=== PATIENT | female | born 1990 | race Caucasian/White ===

== ENCOUNTER 2016-10-27 19:33 | Outpatient (CLI) | payer MEDICAID ==
[~2016-10-27] VITALS: Ht 157.5 cm; Wt 117.9 kg
[~2016-10-27 19:33] MED LIST: AUGMENTIN 875 M1 TAB PO; CEPHALEXIN500 MG PO; ETODOLAC400 MG PO; KEFLEX 500MG.500 MG PO; LEVOTHYROXIN0.025 M1 PO; LORTAB 5/500 501 TAB PO; LORTAB ELIXIR473 ML PO; MACROBID 100MG100 MG PO; NOMEDS; PHENERGAN 25MG.25 M1 PO; PIRMELLA 7/7/71 TAB PO; PREDNISONE 20MG20 MG PO; PRENATAL PLUS1 TA1 PO; SPRINTEC 35 MCG1 TAB PO; TORADOL10 M2 PO; TRIAMCINOL30 GM/TUBE TP; VICODIN 5/500 T1 TAB PO; [UNRECOGNIZED DRUG - OTHER] PO
[2016-10-27 19:40] VITALS: BP 114/66
[2016-10-27] MEDS ORDERED: PRENATAL PLUS1 TA1 PO (19:55)
[2016-10-27] MEDS ORDERED: DICYCLOMINE HYD20 MG PO (19:57)
[2016-10-27 20:47] LABS: URINE BLOOD NEGATIVE (NEG)
[2016-10-27 20:49] LABS: URINE BILIRUBIN - DIPSTICK 1+ (NEG)
[2016-10-27 20:56] LABS: AMPHETAMINES/METAMPHETAMINES NEGATIVE ng/mL (<1000)
== END 2016-10-27 21:12 | disposition home or self-care (01) ==
LOC: OB 19:33 → OBOUT 19:33
PROVIDERS: Nurse Practitioner Obstetrics & Gynecology
DX: O26.92 Pregnancy related conditions, unspecified, second trimester (principal); Z3A.26 26 weeks gestation of pregnancy; R10.9 Unspecified abdominal pain

== ENCOUNTER 2017-03-17 06:37 | Emergency (ER) | payer MEDICAID ==
[~2017-03-17] VITALS: Ht 157.5 cm; Wt 109.3 kg
[~2017-03-17 06:37] MED LIST changes: +DICYCLOMINE HYD20 MG PO; +OMEPRAZOLE20 MG PO
--- NOTE | 2017-03-17 07:00 | Emergency Room Report ---
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 N Clinical Suspician of Infection? N Mental Status: 1 - Regular (Normal Baseline) Sepsis Risk:Low Sepsis Risk Have you (or family members/close friends) recently traveled outside the [place]? N If Yes, where/when: Have you had exposure to infectious disease within the past month? N TB? Other? Specify: Source patient, RN notes reviewed, family, old records Exam Limitations no limitations Comment trip injury and lac at base of rt fifth toe this am Cardiac Chest Pain Chest pain indicative of cardiac No Timing/Duration this morning Severity moderate ALLERGIES Coded Allergies: No Known Allergies (11/10/16) Home Medications Reported Medications Levothyroxine Sodium (Levothyroxine 0.025MG) 0.025 MG PO #30 Omeprazole (Omeprazole 20MG) 20 MG PO DAILY MULTIVIT-MIN W/FE-FA ( Multivitamin Tablet) 1 TAB PO DAILY Dicyclomine Hcl (Bentyl 20mg Tab (Generic)) 20 MG PO DAILY History Medical History General CAD? No Angina: Yes PR: No Hypertension? No Hyperlipidemia? No CHF? No DVT? No PE? No COPD? No Asthma? No Anemia? No GERD? No Gastric ulcers? No GI Bleed? No Hernia? No Thyroid Problems? No Hypothyroidism? Yes CVA? No Seizures? No Diabetes? No Renal Insuffiency? No End Stage Renal Disease? No UTI? Yes Stones? No BPH? No GB Disease: Yes Nephritic Syndrome? No Asplenia? No Hepatitis? No Sickle Cell Disease? No Arthritis? No Migraines? No Cataracts? No Glaucoma? No MRSA? No TB? No Anxiety? No Depression? No Cancer? No More? 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 Respiratory denies cough, denies shortness of breath, denies wheezing Cardiovascular denies chest pain, denies palpitations, denies syncope Gastrointestinal denies abdominal pain, denies diarrhea, denies vomiting Genitourinary denies: dysuria, frequency, hesitancy, hematuria. Musculoskeletal denies back pain, denies joint pain, denies joint swelling, denies neck pain Skin see HPI, denies rash, other Psychiatric/Neurological denies headache, denies seizure Physical Exam Vital Signs Vital Signs Date Time Temp Pulse Resp B/P Pulse O2 O2 Flow FiO2 Ox Delivery Rate 03/17 646 97.9 87 20 140/85 95 - WBC >12,000 or <4,000 or 10% bands? 2 or more SIRS Criteria Met? B/P:140/85 MAP:103 Creatinine >2.0? UA output<0.5ml/kg/hr for 2 hrs? Platelet count >100,000? Lactate >2.0mmol/1? INR >1.2 or PTT > than 60 sec? Evidence of Organ Dysfunction? Provider documented clinical suspician of infection? N Sepsis Criteria Count: 1 Sepsis Risk: Low Sepsis Risk General Appearance no apparent distress Eye Exam - bilateral eye PERRL, bilateral eye EOMI Ear, Nose, Throat normal ENT inspection Neck supple Respiratory Status No: respiratory distress. 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 No Results/Orders Current Medication Orders Sig/Stephen Start time Last Medication Dose Route Stop Time Status Admin Diphtheria/Pertussis/ 0.5 ML ONCE ONE 03/17 715 DC Tetanus Vacc IM 03/17 716 Lidocaine HCl 0 .STK-MED ONE 03/17 702 DC .ROUTE Procedures Laceration/Wound Repair Laceration/Wound Repair Risks/benefits discussed with pt/guardian? Yes Tetanus status not up to date Wound Location toe(s) Wound Length (cm) 1 Wound's Depth, Shape sucutaneous tissue Wound Explored no FB identified Risk of retained FB explained to pt/guardian? Yes Irrigated w/ Saline (ccs) 20 Wound Prep Hibiclens, Saline Anesthesia 1% Lidocaine, Digital block Volume Anesthetic (ccs) 2 Wound Debrided none Wound Repaired With sutures, Dermabond Suture Size/Type 3:0, Ethilon Layer Closure No Total Number Sutures 3 Sterile Dressing Applied Yes Splint Applied No Sling Applied No Departure Departure Time of Disposition 701 Disposition DC Home or Self Care(routine) Clinical Impression Primary Impression: Laceration of toe Qualifiers: Encounter type: initial encounter Toe: lesser toe Damage to nail status: unspecified Foreign body presence: without foreign body Laterality: right Qualified Code: S91.114A - Laceration without foreign body of right lesser toe(s) without damage to nail, initial encounter Condition STABLE Patient Instructions DI for Laceration Repair Additional Instructions suture out 10 days and recheck if any problems Discharge Counseling Counseled pt/family regarding diagnosis, follow up needs ED Critical Care Critical Care No at 0719
[2017-03-17 07:31] VITALS: BP 125/78
--- OUTSIDE RECORDS SUMMARY | 2017-03-24 18:08 | External Medical Summary Rpt ---
Author Author MAIRA Saint Jason Simons Organization [facility] Saint Jason Simons Address Unknown Phone Unavailable Care Team Providers Care College Athletic Director Name Role Phone DR JOSR PCP [phone] Encounter [facility] EM[facility] [id number] Date(s): 11/27/16 - 11/27/16 [facility] Saint Jason Simons [address] [place] [address]- Discharge Diagnosis: Discharge Diagnosis: Upper respiratory infection Discharge Diagnosis: Left acute otitis media Discharge Disposition: OP Self Care or Home Attending Physician: NIDIA HUBBARD MD-EMR Admitting Physician: NIDIA HUBBARD MD-EMR Referring Physician: GENOVEVA OVALLES REFERRED Reason for Visit OTITIS MEDIA, UNSPECIFIED, LEFT EAR Vital Signs Most recent 1 to oldest [Reference Range]: Temperature Oral Source (11/27/16 1:57 PM) Temperature Fahrenheit Mode (11/27/16 1:57 PM) Temperature, 97.7 Deg F Fahrenheit (11/27/16 1:57 PM) [96.8-99.7 Deg F] Clinical 36.5 Deg C Temperature, (11/27/16 1:57 PM) C Peripheral 100 bpm Pulse Rate (11/27/16 1:57 PM) [60-100 bpm] Respiratory 16 Breaths/Min Rate [14-20 (11/27/16 1:57 PM) Breaths/Min] Blood 127/62 mmHg Pressure (11/27/16 1:57 PM) [90-140/60-9 0 mmHg] Oxygen 96 % Saturation (11/27/16 1:57 PM) [94-100 %] Oxygen Room air Therapy Mode (11/27/16 1:57 PM) Height Stated Source (11/27/16 1:57 PM) Height Entry [place] Format (11/27/16 1:57 PM) Height/Lengt 5 ft h, SAMMARINESE (11/27/16 1:57 PM) (ft) Height/Lengt 2 Inch h SAMMARINESE (11/27/16 1:57 PM) CLINICALHEIG 157.48 cm HT (11/27/16 1:57 PM) Weight Critical estimated dosing weight Source, ED (11/27/16 1:57 PM) Weight Entry [place] Format (11/27/16 1:57 PM) Weight 260 lb [place] lb (11/27/16 1:57 PM) CLINICALWEIG 118.18 kg HT (11/27/16 1:57 PM) Body Surface 2.14 m2 Area (BSA) (11/27/16 1:57 PM) Body Mass 47.7 kg/m2 Index (BMI) *>HHI* [19.0-24.0 (11/27/16 1:57 PM) kg/m2] [place] Body 50 kg Weight (11/27/16 1:57 PM) Problem List Condition Effective Status Health Informant Dates Status (Co Active nfirmed) Allergies, Adverse Reactions, Alerts No Known Allergies Medications amoxicillin (amoxicillin 875 mg oral tablet)1 Tab, Oral, Two Times A Day, 10 Day(s), Refills: 0Ordering provider: KATIE BARLOW PA Results Microbiology Reports TEST: Rapid Strep Test STATUS: Auth (Verified) BODY SITE: SOURCE: Throat COLLECTED DATE/TIME: 11/27/16 2:23 PMFINAL REPORTStrep Screen negative for Group A; Culture confirmation to followTEST: Strep A Screen STATUS: Order in Progress BODY SITE: SOURCE: Throat COLLECTED DATE/TIME: 11/27/16 2:23 PMPRELIMINARY REPORTNo Beta Strep isolated at 24 hours Immunizations No data available for this section Procedures No data available for this section Social History Social History Response Type Smoking Status Current every day smoker Assessment and Plan No data available for this section Hospital Discharge Instructions Patient EducationOtitis Media, Adult Pharyngitis Smoking Cessation, Tips For Success
--- OUTSIDE RECORDS SUMMARY | 2017-03-24 18:08 | External Medical Summary Rpt ---
Author Author MAIRA Saint Jason Simons Organization [facility] Saint Jason Simons Address Unknown Phone Unavailable Care Team Providers Care Senior Relationship Manager Name Role Phone DR JOSR PCP [phone] Encounter [facility] [place] [id number] Date(s): 11/27/16 - 11/27/16 [facility] Saint Jason Simons [address] [place] [address]- [phone] Discharge Diagnosis: Discharge Diagnosis: Upper respiratory infection [...] Stated Source (11/27/16 1:57 PM) Height Entry [place] Format (11/27/16 1:57 PM) Height/Lengt 5 ft h, BENINESE (11/27/16 1:57 PM) (ft) Height/Lengt 2 Inch h BENINESE (11/27/16 1:57 PM) CLINICALHEIG 157.48 cm HT (11/27/16 1:57 PM) Weight Critical estimated dosing weight Source, ED (11/27/16 1:57 PM) Weight Entry [place] Format (11/27/16 1:57 PM) Weight 260 lb Brazilian lb (11/27/16 1:57 PM) CLINICALWEIG 118.18 kg HT (11/27/16 1:57 PM) Body Surface 2.14 m2 Area (BSA) (11/27/16 1:57 PM) Body Mass 47.7 kg/m2 Index (BMI) *>HHI* [19.0-24.0 (11/27/16 1:57 PM) kg/m2] [place] Body 50 kg Weight (11/27/16 1:57 PM) [...]
--- OUTSIDE RECORDS SUMMARY | 2017-03-24 18:12 | External Medical Summary Rpt | CCD ---
Author Author , YASMEEN Organization YASMEEN Address Unknown Phone [email or web address] Care Team Providers Care Devulcanizer Operator Name Role Phone ALFARIS MOH, ALFARIS Unavailable Unavailable MOH ALLRAN JR PIETRO, ALLRAN Unavailable Unavailable JR PIETRO ARNOLD RAJIV, ARNOLD Unavailable Unavailable RAJIV ARNOLD RAJIV, ARNOLD Unavailable Unavailable RAJIV HAIR, HAIR Unavailable Unavailable HAIR, HAIR Unavailable Unavailable LUJAN DONELL, LUJAN Unavailable Unavailable DONELL LE MARLEY LUJAN Unavailable Unavailable DONELL BESSON TERE, BESSON Unavailable Unavailable TERE ADKINS ALL, ADKINS ALL Unavailable Unavailable CELLAROSI - YORBA Unavailable Unavailable PAT, CELLAROSI - YORBA PAT [facility] Unavailable Unavailable [facility], [facility] Unavailable Unavailable [facility], [facility] Unavailable Unavailable [facility], [facility] SAM ERNESTINE, Unavailable Unavailable SAM ERNESTINE MILY SARAH, MILY SARAH Unavailable Unavailable FINE BRA, FINE BRA Unavailable Unavailable JUDITH, JUDITH Unavailable Unavailable JUDITH VETO, JUDITH Unavailable Unavailable VETO JUDITH VETO, JUDITH Unavailable Unavailable VETO [facility] BURROUGHS FERMÍN, BURROUGHS Unavailable Unavailable FERMÍN [facility] Unavailable Unavailable INC, [facility] Unavailable [facility]available HOSPITAL P, [facility] P HIGUERA, HIGUERA Unavailable Unavailable HIGUERA SULY, HIGUERA Unavailable Unavailable SULY CARPENTER, CARPENTER Unavailable Unavailable CARPENTER, CARPENTER Unavailable Unavailable [facility], Unavailable Unavailable [facility] PIERCE CHAPIN Unavailable Unavailable [facility] Un[facility] Unavailable GROUP PS, [facility] Unavailable Unavailable [facility], [facility], Unavailable Unavailable [facility] Sarika Gallagher MD, Unavailable Unavailable Sarika Gallagher MD [facility] Un[facility], [facility] Unavailable Unavailable [facility] Unavailable Unavailable [facility] SCOTT HUSSEIN, SCOTT Unavailable Unavailable HUSSEIN SCOTT HUSSEIN, SCOTT Unavailable Unavailable HUSSEIN [facility] Un[facility] Unavailable [facility], [facility] KASEY ANT, KASEY ANT Unavailable Unavailable ESTER NOAH, Unavailable Unavailable ESTER NOAH [facility], Unavailable Unavailable [facility], Unavailable Unavailable [facility] Unavailable Unavailable SERVICES, [facility] O'GREGOR, O'GREGOR Unavailable Unavailable O'GREGOR DONELL, O'GREGOR Unavailable Unavailable DONELL [facility] Unavailable Un[facility], [facility] ZEENAT THERESA, ZEENAT THERESA Unavailable Unavailable PICKLESIMER JR GIDEON, Unavailable Unavailable PICKLESIMER JR GIDEON [facility], Unavailable Unavailable [facility], Unavailable Unavailable [facility] DAVIS, DAVIS Unavailable Unavailable SOTINGEANU SARAH, Unavailable Unavailable SOTINGEANU SARAH [facility], [facility] Unavailable Unavailable EMERGENCY SERVI, [facility] TALAMANTES RAY, TALAMANTES Unavailable Unavailable RAY CAIN, BARLOW Unavailable Unavailable HANNY [facility], HANNY Unavailable Unavailable [facility] Unavailable Unavailable HOSPITALS, [facility], Unavailable Unavailable [facility] Unavailable Unavailable DEPT [facility] DEPT [facility] Unavailable Unavailable DEPT [facility] DEPT [facility] ELLIOTT GOULD, ELLIOTT GOULD Unavailable Unavailable Purpose Continuity of Care Document - 12-15-2012 through 2016 Problems Code Diagnosis DOS Provider Status E039 HYPOTHYROID 01-26-2017 [facility]PEC[facility] E6601 MORBID 01-26-2017 [facility] OBESITY DUE HOSPITA TO EXCESS CALORIES O701 SECOND 01-26-2017 [facility]GREE [facility] PERINEAL HOSPITA LACERATION DUR DELIVERY O76 ABNORMALITY 01-26-2017 [facility] IN [facility] HRT RATE HOSPITA RHYTHM COMP L & D O80 ENCOUNTER 01-26-2017 [facility] FULL-TERM GROUP PS UNCOMPLICAT ED DELIVERY K41117 OBESITY 01-26-2017 [facility] CHILDBIRTH T40933 ENDOCRINE 01-26-2017 [facility] METAB DZ [facility] COMP CHILDBIRTH Z09228 SMOKING 01-26-2017 [facility] TOBACCO [facility] COMPLICATIN [facility] G CHILDBIRTH Z370 SINGLE LIVE 01-26-2017 [facility] Z382 SINGLE 01-26-2017 [facility] NERI STOUT UNS TO PLACE OF Z6841 BODY MASS 01-26-2017 [facility] INDEX BMI COMMUNTIY 40.0-44.9 HOSPITA ADULT E663 OVERWEIGHT 01-06-2017 [facility] M70850 OBESITY 01-06-2017 [facility] G [facility] THIRD TRIMESTER R95594 ENDOCRINE 01-06-2017 [facility] METAB DZ [facility] COMP PREG 3RD TRI [id number] OTH MENTAL 01-06-2017 [facility] DIS[facility] 3RD TRIMESTER Z23 ENCOUNTER 01-06-2017 [facility] IMMUNIZATIO [facility]OUND[facility] N Z3483 ENC 01-06-2017 [facility] OT NORMAL HOSPITALS 3 TRIMESTER Z36 ENCOUNTER 01-06-2017 [facility] HOSPITALS SCREENING OF MOTHER Z3A36 36 WEEKS 01-06-2017 [facility] Z6842 BODY MASS 01-06-2017 [facility] BMI SERV 45.0-49.9 FOUNDATION ADULT E669 OBESITY 12-01-2016 [facility] UNSPECIFIED SERV [facility] Z3A31 31 WEEKS 12-01-2016 [facility] OF [facility] H6692 OTITIS 11-27-2016 [facility] UNSPECIFIED SERVI LEFT EAR J069 ACUTE UPPER 11-27-2016 [facility] N [facility] RESPIRATORY SERVI INFECTION UNSPECIFIED E19255 DISEASES 11-27-2016 [facility] N EMERGENCY SYS COMP SERVI 3RD TRI Z3A30 30 WEEKS 11-27-2016 [facility] GESTATION N EMERGENCY OF SERVI K529 NONINFECTIV 11-10-2016 [facility], GASTROENTER PLLC ITIS & COLITIS UNS K9289 OTHER 11-10-2016 [facility] SPECIFIED [facility] DISEASES OF INC THE DIGESTIVE SYSTEM C12908 DISEASES 11-10-2016 [facility] DIGESTIVE [facility]IANS, SYSTEM COMP PLLC 2ND TRI K16879 DISEASES 11-10-2016 [facility] DIGESTIVE [facility] SYSTEM COMP INC 3RD TRI Z3A28 28 WEEKS 11-10-2016 [facility] GESTATION PHYSICIANS, OF PLLC K589 IRRITABLE 10-29-2016 [facility] WITHOUT DIARRHEA O2342 UNS INF 10-29-2016 [facility] SECOND TRIMESTER Q28257 ENDOCRINE 10-29-2016 [facility] METAB DZ HOSPITALS COMP PREG 2ND TRI Z3A26 26 WEEKS 10-29-2016 [facility] O2692 10-27-2016 [facility] RELATED [facility] CONDITIONS INC UNS 2ND TRIMESTER R109 UNSPECIFIED 10-27-2016 [facility] ABDOMINAL [facility] PAIN INC 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 H5213 MYOPIA 10-14-2016 HAIR BILATERAL Z39045 OBESITY 09-20-2016 [facility] G [facility] SECOND TRIMESTER Z3A20 20 WEEKS 09-20-2016 [place] [facility] OF [facility] Z3189 ENCOUNTER 06-10-2016 [facility] FOR OTHER DISTRICT PROCREATIVE [facility] DEPT MANAGEMENT RUTH Z3201 ENCOUNTER 06-10-2016 [facility] FOR DISTRICT HLTH DEPT TEST RESULT RUTH POSITIVE H538 OTHER 04-08-2016 [facility] VISUAL COMM[facility]TIY DISTURBANCE HOSPITA S H539 UNSPECIFIED 04-08-2016 [facility] VISUAL N EMERGENCY DISTURBANCE PHYS R110 NAUSEA 04-08-2016 [facility] R51 HEADACHE 04-08-2016 [facility] N EMERGENCY PHYS Z720 TOBACCO USE 04-08-2016 [facility] N921 EXCESS & 03-18-2016 [facility] MENSTRUATIO N W/IRREGULAR CYCLE A58591 OTHER LONG 03-18-2016 [facility] CURRENT DRUG THERAPY T17382 PAIN IN 03-05-2016 ARNALBERT VANCE UNSPECIFIED FOOT M722 PLANTAR 01-21-2016 [facility] FASCIAL PHYSICIANS, FIBROMATOSI [facility] S U89098 PAIN IN 01-21-2016 [place] LEFT [facility]OT [facility] ASS U02813 OTHER 01-16-2016 ARNALBERT RAJIV MIGRAINE INTRACT W/O STATUS MIGRAINOSUS D649 ANEMIA 12-19-2015 [facility] UNSPECIFIED PHYSICIANS LA E119 TYPE 2 12-19-2015 [facility] DIABETES PHYSICIANS MELLITUS LA WITHOUT COMPLICATIO NS E785 HYPERLIPIDE 12-19-2015 [facility] CONSTANTIN PHYSICIANS UNSPECIFIED LA I10 ESSENTIAL 12-19-2015 [facility] PRIMARY PHYSICIANS HYPERTENSIO LA N N63 UNSPECIFIED 11-25-2015 [place] [facility] BREAST N644 MASTODYNIA 11-25-2015 [facility] R590 LOCALIZED 11-25-2015 [facility] ENLARG[facility] LYMPH NODES B379 CANDIDIASIS 11-18-2015 [facility]PEC[facility]IED [facility] N6009 SOLITARY 11-18-2015 [facility] CYST OF SERV UNSPECIFIED FOUNDATION BREAST Z0100 ENCOUNTER 09-20-2015 [facility] EXAM EYES & GRE VISION W/O ABNORMAL FIND J0100 ACUTE 09-11-2015 [facility] MAXILLARY PHYSICIANS SINUSITIS GROUP UNSPECIFIED J320 CHRONIC 09-11-2015 [facility] MAXILLARY PHYSICIANS SINUSITIS GROUP M2662 ARTHRALGIA 09-01-2015 SHAYLA RAJIV OF TEMPOROMAND IBULAR JOINT R102 PELVIC AND 08-13-2015 [facility] PERINEAL [facility] PAIN [facility] O84927 PAIN IN 07-16-2015 [facility]ST [facility] ASS M6740 GANGLION 07-16-2015 [facility] UNSPECIFIED [facility] HOS[facility] SITE INC K219 GASTRO-ESOP 07-12-2015 LE MARLEY H REFLUX DISEASE WITHOUT ESOPHAGITIS 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 R0789 OTHER CHEST 07-12-2015 LE [facility] PAIN R079 CHEST PAIN 07-09-2015 ARNOLD RAJIV UNSPECIFIED S33003 ENCOUNTER 05-22-2015 [facility] SECOND BALLER EXAM LLC GENERAL RTN W/O ABNORMAL FIND 1121 CANDIDIASIS 01-28-2015 [facility] OF [place] [facility] AND [place] [facility] DEPT RUTH 6101 DIFFUSE 01-28-2015 [facility] CYSTIC DISTRICT MASTOPATHY TH DEPT RUTH 47663 SPASM OF 12-13-2014 RICHARDS RAJIV MUSCLE 2724 OTHER AND 08-21-2014 [facility] UNSPECIFIED PHYSICIANS LA HYPERLIPIDE CONSTANTIN 4659 ACUTE URIS 08-21-2014 ARNOLD RAJIV OF UNSPECIFIED SITE 30833 FEVER 08-21-2014 [place] [address] OTHER 08-21-2014 [facility] MALAISE AND PHYSICIANS FATIGUE [place] 7295 PAIN IN 06-19-2014 [facility] SOFT MEDICAL TISSUES OF IMAGING ASS LIMB 34968 CALCANEAL 05-13-2014 [place] [address] OTHER 05-13-2014 [facility] ENTHESOPATH FOOT & Y OF ANKLE ANKLE CE AND TARSUS 87000 PAIN IN 05-06-2014 [facility] JOINT, MEM HOS[facility] ANKLE AND INC FOOT V2501 GENERAL 04-23-2014 [facility] PRESCRIPTIO [facility]ATION N ORAL CONTRACEPTS V7241 04-23-2014 [place] [facility] EX[facility] OR TEST [place] [facility] NEGATIVE RESULT 55620 UNSPECIFIED 03-28-2014 SCOTT HUSSEIN ACUTE NONSUPPURAT SOPHIA OTITIS MEDIA 55473 OTHER ACUTE 03-27-2014 JUDITH VETO POSTOPERATI VE PAIN 7841 THROAT PAIN 03-27-2014 JUDITH VETO 38507 OBSTRUCTIVE 03-21-2014 [facility] P 463 ACUTE 03-21-2014 [facility] TONSILLITIS LLC 53483 CHRONIC 03-21-2014 SCOTT HUSSEIN TONSILLITIS 83272 HYPERTROPHY 03-21-2014 [facility], OF TONSILS LLC ALONE V2541 SURVEILLANC 03-19-2014 [facility] E PREV DISTRICT PRESCRIBED [facility] DEPT CONTRACEPT RUTH PILL V2689 OTHER 03-19-2014 [facility] SPECIFIED DISTRICT PROCREATIVE [facility] DEPT MANAGEMENT RUTH 462 ACUTE 03-05-2014 SHAYLA VANCE PHARYNGITIS 6929 CONTACT 03-05-2014 SHAYLA RAJIV DERMATITIS& OTHER EC[facility] DUE UNSPEC CAUSE V2503 ENCOUNTER 03-05-2014 [facility] EMERGENCY DISTRICT CONTRACEPT [facility] DEPT CNSL&PRESCR RUTH IPTION 2893 LYMPHADENIT 02-28-2014 SONIA HUSSEIN IS UNSPECIFIED EXCEPT MESENTERIC 5282 ORAL 02-16-2014 [facility] APHTHAE [facility] INC V2549 SURVEILLANC 12-25-2013 [facility] OTH PREV DISTRICT PRSC [facility] DEPT CONTRACEPT RUTH METHOD V7231 ROUTINE 12-25-2013 [facility] GYNECOLOGIC LLC AL EXAMINATION 59017 CALCU 09-17-2013 [facility] GALLBLADD LLC W/OTH CHOLECYST W/O MENTION OBST 54092 CALCU 09-17-2013 [facility] GALLBLADD PHYSICIANS W/O MENTION GROUP CHOLECYST/O BST 13588 CHOLECYSTIT 09-17-2013 COMMUNITY IS, ANESTH OF UNSPECIFIED THE BLUE 5770 ACUTE 09-17-2013 [facility] PANCREATITI PHYSICIANS S GROUP V4579 OTHER 09-17-2013 [facility] ACQUIRED MEDICAL ABSENCE OF IMAGING ASS ORGAN 5758 OTHER 09-12-2013 [facility] SPECIFIED [facility] DISORDER OF INC GALLBLADDER 61003 MORBID 09-06-2013 [facility] OBESITY [facility] INC 76773 CALCU BD 09-06-2013 [facility] W/ACUT [facility] H[facility] CHOLECYST INC W/O MENTION OBST V8541 BODY MASS 09-06-2013 [facility] INDEX [facility]P 40.0-44.9 INC ADULT 77104 ABDOMINAL 09-01-2013 [facility] PAIN RIGHT PHYSICIANS UPPER GROUP QUADRANT 99307 BENIGN 07-09-2013 [facility] ESSENTIAL COMM[facility]TIY HYPERTENSIO HOSPITA N WITH DELIVERY 04104 IVETTE 07-09-2013 [facility] HYPERTENSIO FOUNDATIO N W/DELIV W/CURRENT PPC 04762 OBESITY 07-09-2013 [place] [facility] COMP PG SERV CHILDBIRTH/ FOUNDATIO THE PP DEL W/PP COMP 650 NORMAL 07-09-2013 [place] [address] SECOND-DEGR 07-09-2013 [facility] PERINEAL COMMUNTIY LACERATION HOSPITA WITH DELIVERY V270 OUTCOME OF 07-09-2013 [place] [facility] SINGLE FOUNDATIO LIVEBORN 66062 OBESITY, 07-06-2013 [place] [facility] UNSPECIFIED SERV FOUNDATIO 4019 UNSPECIFIED 07-06-2013 [place] [facility] E[facility]ENTIAL [facility] HYPERTENSIO FOUNDATIO N 60694 UNSPECIFIED 07-06-2013 [facility] HYPERTENSIO FOUNDATIO N ANTEPARTUM V239 UNSPECIFIED 07-06-2013 [place] [facility] HIGH-RISK SERV FOUNDATIO V2389 SUPERVISION 06-29-2013 [facility] OF [facility] HIGH-RISK 55062 UTERINE 05-23-2013 [place] [facility] [place] DATE SERV DISCREPANCY FOUNDATIO ANTPRTM COND/COMPL V720 EXAMINATION 05-17-2013 [facility] OF EYES GRE AND VISION V221 SUPERVISION 03-30-2013 [facility] OTHER DIAGNOSTICS NORMAL 30895 UNS 02-28-2013 [place] [facility] &PLACN SERV TL PROB FOUNDATIO AFFCT MGMT MOTH ANTPRTM V2881 ENCOUNTER 02-28-2013 [place] [facility] FOR [facility] ANATOMIC F[facility]ATIO SURVEY 599.0 599.0 URIN 12-15-2012 [facility] INFECTION Hospital NOS 5990 URINARY 12-15-2012 [facility] INFECTION INC SITE NOT SPECIFIED 646.83 646.83 PREG 12-15-2012 [facility] [place] [address] INFECTIONS 12-15-2012 [facility] OF EMERGENCY GENITOURINA SERVICES RY TRACT ANTEPARTUM 82514 OTHER 12-15-2012 [facility] N ANTEPARTUM Allergies, Adverse Reactions, Alerts Type Drug Allergy Adverse Reaction to Substance Substance Reaction Severity No Known Allergies - Unknown Mild Nka Clinical Alert Notifications Alert Diabetes: no A1C in the last 6 months Diabetes: no eye exam in the last 365 days Diabetes: no lipid panel in the last 365 days Medications Na ND Rx Da Fi Fi Am Da Di Ph RX Ph St me C No te ll ll ou ys ag ar # ys at rm s nt no ma ic us Or Da si cy ia de te s n re d LE 00 08 09 30 30 00 EA Ac VO 37 -3 -[address] ti TH 81 1- 9- 00 00 SI ve YR 80 20 20 48 DE OX 01 17 17 81 IN 0 38 PH E AR 25 MA CY MC G OF TA CY BL NT ET HI AN A IN C MS 39 09 09 30 30 00 EA Ac EN 32 -0 -[address] ti AT 80 5- 9- 00 00 SI ve AL 10 20 20 49 DE 61 17 17 33 0 11 PH TA AR WY MA N CY PL US OF CY LO NT W HI IR AN ON A IN C OM 62 08 09 30 30 00 EA Ac EP 17 -1 -[address] ti RA 50 5- 8- 00 00 SI ve ZO 13 20 20 48 DE LE 64 17 [address] AR MA 40 CY MG OF CY CA NT PS HI UL AN E A IN C MS 39 08 08 30 30 00 EA Ac EN 32 -0 -[address] ti AT 80 1- 5- 00 00 SI ve AL 10 20 20 49 DE 61 17 17 33 0 11 PH TA AR WY MA N CY PL US OF CY LO NT W HI IR AN ON A IN C OM 62 07 08 30 30 00 EA Ac EP 17 -2 -[address] ti RA 50 3- 8- 00 00 SI ve ZO 13 20 20 48 DE LE 64 17 [address] AR MA 40 CY MG OF CY CA NT PS HI UL AN E A IN C LE 00 07 08 30 30 00 EA Ac VO 37 -2 -[address] ti TH 81 4- 8- 00 00 SI ve YR 80 20 20 48 DE OX 01 17 17 81 IN 0 38 PH E AR 25 MA CY MC G OF TA CY BL NT ET HI AN A IN C MS 39 07 07 30 30 00 EA Ac EN 32 -0 -[address] ti AT 80 3- 8- 00 00 SI ve AL 10 20 20 49 DE 61 17 17 33 0 11 PH TA AR WY MA N CY PL US OF CY LO NT W HI IR AN ON A IN C LE 00 07 07 30 30 00 EA Ac VO 37 -0 -[address] ti TH 81 1- 8- 00 00 SI ve YR 80 20 20 48 DE OX 01 17 17 81 IN 0 38 PH E AR 25 MA CY MC G OF TA CY BL NT ET HI AN A IN C AM 65 06 07 20 10 00 KE Ac OX 86 -1 -1 .0 00 NT ti IC 20 7- 4- 00 00 UC ve IL 01 20 20 99 [place] LI 50 17 17 80 N 1 99 CV 87 S 5 PH MG AR MA TA CY BL ET LL C, DB A CV S PH AR MA CY #3 99 5 OM 62 06 07 30 30 00 EA Ac EP 17 -2 -[address] ti RA 50 0- 4- 00 00 SI ve ZO 13 20 20 48 DE LE 64 17 [address] AR MA 40 CY MG OF CY CA NT PS HI UL AN E A IN C LE 00 06 06 30 30 00 EA Ac VO 37 -0 -[address] ti TH 81 1- 0- 00 00 SI ve YR 80 20 20 48 DE OX 01 17 17 81 IN 0 38 PH E AR 25 MA CY MC G OF TA CY BL NT ET HI AN A IN C NI 16 05 06 14 7 00 EA Ac TR 71 -1 -[address] ti OF 40 8- 6- 00 00 SI ve UR 43 20 20 48 DE AN 90 17 17 80 TO 1 78 PH IN AR MA MO CY NO -M OF CR CY NT 10 HI 0 AN MG A IN C OM 62 05 06 30 30 00 EA Ac EP 17 -1 -[address] ti RA 50 9- 6- 00 00 SI ve ZO 13 20 20 48 DE LE 64 17 [address] AR MA 40 CY MG OF CY CA NT PS HI UL AN E A IN C SE 16 05 05 30 30 00 EA Ac RT 71 -0 -[address] ti RA 40 3- 6- 00 00 SI ve LI 61 20 20 47 DE NE 20 17 17 91 6 09 PH HC AR L MA 50 CY MG OF CY TA NT BL HI ET AN A IN C LE 00 05 05 30 30 00 EA Ac VO 37 -0 -[address] ti TH 81 3- 6- 00 00 SI ve YR 80 20 20 48 DE OX 01 17 17 60 IN 0 34 PH E AR 25 MA CY MC G OF TA CY BL NT ET HI AN A IN C CH 00 04 04 47 15 00 EA Ac LO 11 -0 -[address] ti RH 62 3- 8- 00 00 SI ve EX 00 20 20 0 48 DE ID 11 17 17 22 IN 6 78 PH E AR 0. MA 12 CY % RI OF NS CY E NT HI AN A IN C HY 00 04 04 [address] 40 -0 -[address] ti OC 60 3- 8- 00 00 SI ve OD 12 20 20 48 DE ON 30 17 17 22 -A 5 79 PH CE AR TA MA WY CY NO PH OF EN CY NT 5- HI 32 AN 5 A IN C LE 00 03 04 30 30 00 EA Ac VO 37 -3 -[address] ti TH 81 1- 8- 00 00 SI ve YR 80 20 20 45 DE OX 01 17 17 05 IN 0 30 PH E AR 25 MA CY MC G OF TA CY BL NT ET HI AN A IN C OM 60 04 04 30 30 00 WA Ac EP 50 -0 -2 .0 00 L- ti RA 50 1- 8- 00 07 MA ve ZO 14 20 20 47 RT LE 60 17 [address] AR MA 40 CY MG #5 91 CA PS UL E SE 16 03 04 30 30 00 EA Ac RT 71 -0 -[address] ti RA 40 9- 7- 00 00 SI ve LI 61 20 20 47 DE NE 20 17 17 91 6 09 PH HC AR L MA 50 CY MG OF CY TA NT BL HI ET AN A IN LE 00 03 03 30 30 00 EA Ac VO 37 -0 -[address] ti TH 81 2- 1- 00 00 SI ve YR 80 20 20 45 DE OX 01 17 17 05 IN 0 30 PH E AR 25 MA CY MC G OF TA CY BL NT ET HI AN A IN C LE 00 02 03 30 30 00 EA Ac VO 37 -0 -[address] ti TH 81 3- 3- 00 00 SI ve YR 80 20 20 45 DE OX 01 17 17 05 IN 0 30 PH E AR 25 MA CY MC G OF TA CY BL NT ET HI AN A IN C AM 16 01 02 30 10 00 EA Ac OX 71 -1 -[address] ti IC 40 2- 0- 00 00 SI ve IL 29 20 20 45 DE LI 90 17 17 93 N 4 62 PH 50 AR 0 MA MG CY CA OF PS CY UL NT E HI AN A IN C HM 62 01 02 20 10 00 EA Ac 01 -0 -[address] ti NA 10 6- 3- 00 00 SI ve SA 08 20 20 47 DE L 70 17 17 15 DE 1 45 PH CO AR NG MA ES CY T ER OF CY 12 NT 0 HI MG AN A IN C LE 00 01 01 30 30 00 EA Ac VO 37 -0 -[address] ti TH 81 2- 7- 00 00 SI ve YR 80 20 20 45 DE OX 01 17 17 05 IN 0 30 PH E AR 25 MA CY MC G OF TA CY BL NT ET HI AN A IN C ON 68 12 01 10 3 00 EA Ac DA 46 -2 -[address] ti NS 20 1- 3- 00 00 SI ve ET 15 20 20 46 DE RO 81 16 17 96 N 3 89 PH OD AR T MA 8 CY MG OF TA CY BL NT ET HI AN A IN C OM 57 12 01 30 30 00 WA Ac EP 23 -1 -1 .0 00 L- ti RA 70 9- 3- 00 07 MA ve ZO 16 20 20 39 RT LE 23 16 [address] AR MA 40 CY MG #5 91 CA PS UL E Immunization Name Date Rout CVX Reac Dose Comm Prov Is Faci e tion ent ider Refu lity Give sed n TDAP - 115 HAYN No [place] 7-20 ES MEDI VACC 17 KAROLYN INE SERV 7 YRS/ FOUN > IM DATI ON Vital Signs 12-15-2012 16:31 Name Value Interpretat Reference Comment ion Range Body 98.4 [degF] Temperature BP 62 mm[Hg] Diastolic BP Systolic 133 mm[Hg] Heart 98 /min Rate/Pulse O2% 97 % Respiratory 18 /min Rate 12-15-2012 16:30 Name Value Interpretat Reference Comment ion Range Body 98.4 [degF] Temperature BP 62 mm[Hg] Diastolic BP Systolic 133 mm[Hg] Heart 98 /min Rate/Pulse O2% 97 % Respiratory 18 /min Rate Results Labs Lab Lab Date Result Refere Interp Status Commen Order Detail nces retati t Range on TSH SerPl DL<=0.005 mIU/L-aCnc (12-01-2016 15:15) TSH 2.09 0.4-4.2 complet SerPl 017 uIU/mL ed DL<=0.0 15:15 05 mIU/L-a Cnc CHLAMYDIA AND GONORRHEA TESTING (12-26-2013 09:10) Cutting Machine Fixer: Abigail Goyal MD FCAP Lab: [facility] Division of Laboratory Services Lab Address: [address] [place] [address], [address] [place] [address] 12-26-2013 9:10 am Specimen Collection Start Date/Time: Library Clerk: Specimen Fer'vinicius 12-31-2013 10:00 am Date/Time: Ordering Physician: [facility] 01-03-2014 8:32 am Results Rpt/Status Change Date/Time: This report contains patient information that must be protected in accordance with the Health Insurance Portability and Accountability Act. AMPLIFI NEGATIV complet ED N 014 E ed GONORRH 09:10 OEAE TEST Comment: NEGATIVE RESULT= WITHIN NORMAL LIMITS Comment: POSITIVE RESULT= ABNORMAL Comment: EQUIVOCAL RESULT= INDETERMINATE Comment: UNSATISFACTORY RESULT= INVALID Comment: THE APTIMA COMBO 2 ASSAY IS NOT INTENDED FOR THE EVALUATION OF SUSPECTED Comment: SEXUAL ABUSE OR FOR OTHER MEDICO-LEGAL INDICATIONS. FOR THOSE PATIENTS FOR Comment: WHOM A FALSE POSITIVE RESULT MAY HAVE ADVERSE PSYCHO-SOCIAL IMPACT, THE CDC Comment: RECOMMENDS RETESTING. Comment: \E\.br\E\This report contains patient information that must be protected in accordance with the Health Insurance Portability and Accountability Act. AMPLIFI NEGATIV complet ED 014 E ed CHLAMYD 09:10 IA TEST Comment: NEGATIVE RESULT= WITHIN NORMAL LIMITS Comment: POSITIVE RESULT= ABNORMAL Comment: EQUIVOCAL RESULT= INDETERMINATE Comment: UNSATISFACTORY RESULT= INVALID CHART NA complet NUMBER 014 ed 09:10 PREGNAN NO complet T 014 ed 09:10 SPECIME URINE complet N 014 ed SOURCE 09:10 REASON REVISIT complet FOR 014 /ANNUAL ed REQUEST 09:10 FAMILY PLANNIN G VISIT SYMPTOM NO complet S 014 ed 09:10 KIT 30-2 complet EXPIRAT 014 014 ed ION 09:10 DATE ETHNICI 07-16-2 WHITE, complet TY 014 NON-HIS ed 09:10 PANIC COLLECT 16-2 PT/D.BR complet OR 014 ADFORD ed 09:10 RN URINALYSIS/COMPLETE (12-15-2012 15:58) URINE 07-05-2 YELLOW YELLOW complet COLOR 013 ed 15:58 URINE 07-05-2 CLEAR CLEAR complet APPEARA 013 ed NCE 15:58 URINE 07-05-2 NEGATIV NEG complet GLUCOSE 013 E ed - 15:58 DIPSTIC K URINE 07-05-2 NEGATIV NEG complet BILIRUB 013 E ed IN - 15:58 DIPSTIC K URINE 07-05-2 NEGATIV NEG complet KETONE 013 E mg/dL ed 15:58 URINE 07-05-2 1.015 1.005-1 complet SPECIFI 013 UNK .030 ed C 15:58 GRAVITY URINE 07-05-2 NEGATIV NEG complet BLOOD 013 E ed 15:58 URINE 07-05-2 8.5 UNK 5.0-8.5 complet PH 013 ed 15:58 URINE 07-05-2 TRACE NEG complet PROTEIN 013 mg/dL ed - 15:58 DIPSTIC K URINE 07-05-2 1.0 NEG complet UROBILI 013 E.U./dL ed NOGEN - 15:58 DIPSTIC K URINE 07-05-2 NEGATIV NEG complet NITRATE 013 E ed - 15:58 DIPSTIC K URINE 07-05-2 1+ NEG complet LEUK 013 ed ESTERAS 15:58 E URINE 07-05-2 OCC 0 complet RBC 013 rbc/hpf ed 15:58 URINE 07-05-2 3-5 O complet WBC 013 wbc/hpf ed 15:58 URINE 07-05-2 5-10 0-5 complet SQUAMOU 013 #/hpf ed S CELLS 15:58 URINE 07-05-2 3+ O complet BACTERI 013 ed A 15:58 URINE 07-05-2 1+ OCC complet MUCUS 013 ed 15:58 Procedures Procedure DOS Code Location Performer Comment [facility] [id number] [place] DISCHARGE 7 [employer] DAY MANAGEMEN T 30 MIN/< VAGINAL [id number] [place] DELIVERY 7 MEDICAL ONLY SERV FOUNDATIO N 1ST [address] [facility]NIMO 7 MSO, [facility] CARE PER DAY NML NB NEURAXIAL 93024 [facility] DAVIS LABOR 7 ANESTHESI ANALG/ANE A GROUP S PLND PS VAGINAL DELIVERY DRAINAGE [id number] [facility] AMNIOTIC 7 N N FLUID COMMUNTIY COMMUNTIY THERAPEUT HOSPITA HOSPITA POC SAI/ART OP DELIVERY [id number] [facility] PRODUCTS 7 N N OF COMMUNTIY COMMUNTIY CONCEPTIO HOSPITA HOSPITA N EXTERNAL REPAIR [id number] [facility] PERINEUM 7 N N MUSCLE COMMUNTIY COMMUNTIY OPEN HOSPITA HOSPITA APPROACH IADNA 29118 [facility] STREPTOCO 7 HEALTHCAR HEALTHCAR CCUS E E GROUP B [facility] AMPLIFIED PROBE TQ IM ADM 50868 BAILEY DAVIDA PRQ ID 7 MEDICAL SUBQ/IM SERV NJXS 1 FOUNDATIO VACCINE N TDAP 39177 BAILEY DAVIDA VACCINE 7 7 MEDICAL YRS/> IM SERV FOUNDATIO N BLOOD 77776 [place] COUNT 7 HEALTHCAR HEALTHCAR COMPLETE E E AUTOMATED [facility] US PREG 66216 BAI[facility] O'[facility]REGOR UTERUS 7 MEDICAL REAL TIME SERV F/U FOUNDATIO [place] [address] [facility] THYROID 7 HEALTHCAR HEALTHCAR STIMULATI E E NG [facility] HORMONE TSH THERAPEUT 34849 ABDIFATAH GARDINER IC 7 [facility] INJECTION INC INC IV PUSH EACH NEW DRUG CULTURE 58668 ABDIFATAH GARDINER BACTERIAL 7 [facility] INC [place] [address] ABDIFATAH GARDINER INFUSION 7 [facility] THERAPY/P INC INC ROPHYLAXI S /DX 1ST TO 1 HR BLOOD 28508 ABDIFATAH GARDINER COUNT 7 [facility] COMPLETE INC INC AUTO&AUTO DIFRNTL WBC COMPREHEN 62355 ABDIFATAH GARDINER SIVE 7 [facility] METABOLIC INC INC PANEL URNLS DIP 95865 ABDIFATAH GARDINER 7 [facility] STICK/TAB INC INC LET REAGENT AUTO MICROSCOP Y GLUCOSE 13353 [place] [facility] POST 7 HEALTHCAR HEALTHCAR GLUCOSE E E DOSE [facility] DRUG TEST 99730 ABDIFATAH GARDINER PRSMV 7 [facility] QUAL DIR INC INC OPTICAL OBS PER DAY CULTURE 39940 ABDIFATAH GARDINER BACTERIAL 7 [facility] INC INC QUANTTATI VE COLONY COUNT URINE 92643 ABDIFATAH GARDINER NONSTRESS 7 [facility] TEST INC INC FITTING 89860 [facility] SPECTACLE 7 S XCPT APHAKIA MONOFOCAL FRAMES V2020 [facility] HAIR PURCHASES 7 1 VISN V2103 [facility] HAIR PLANO 7 TO+/-4.00 D SPHER 0.12-2.00 [place] 25684 [place] O[facility] UTERUS 7 MEDICAL AFTER 1ST SERV TRIMEST FOUNDATIO N GESTATION URINE 53330 [facility] 6 DISTRICT DISTRICT TEST HLTH DEPT HLTH DEPT VISUAL [place] [address] [facility] [place] TALAM[facility]ES HEAD/BRAI 6 RADIOLOGY RAY N W/[place] [address] [facility] THYROID 6 Y Y STIMULATI [facility] NG HORMONE TSH URINE 45948 BAILEY HIGUERA 6 MEDICAL SULY TEST SERV VISUAL FOUNDATIO COLOR N CMPRSN METHS BLOOD 28081 [facility] COUNT 6 Y Y COMPLETE [facility] AUTOMATED RADEX 44688 [place] [facility] ALL FOOT 6 MEDICAL COMPLETE IMAGING MINIMUM 3 [place] [address] COMBINED COMBINED FREE 6 PHYSICIAN [place]YS[place] [address] COMBINED COMBINED THYROID 6 PHYSICIAN PHYSICIAN STIMULATI S LA S LA NG HORMONE TSH SEDIMENTA 78716 COMBINED COMBINED TION RATE 6 PHYSICIAN PHYSICIAN RBC S LA S LA NON-AUTOM ATED 25 71330 COMBINED COMBINED HYDROXY 6 PHYSICIAN PHYSICIAN INCLUDES S [place] [address] COMBINED COMBINED TRIIODOTH 6 PHYSICIAN PHYSICIAN YRONINE S LA S LA T3 TOTAL TT3 BLOOD 95668 COMBINED COMBINED COUNT 6 PHYSICIAN PHYSICIAN COMPLETE S LA S LA AUTO&AUTO DIFRNTL WBC HEMOGLOBI 69754 COMBINED COMBINED N 6 PHYSICIAN PHYSICIAN GLYCOSYLA S LA S LA MARVA A1C COMPREHEN 51016 COMBINED COMBINED SIVE 6 PHYSICIAN PHYSICIAN METABOLIC S LA S LA PANEL LIPID 01068 COMBINED COMBINED PANEL 6 PHYSICIAN PHYSICIAN S LA S LA OPHTH 38598 [facility] 6 GRE GRE XM&EVAL COMPRHNSV ESTAB PT 1/> URINE 59248 [place] 6 MEDICAL MEDICAL TEST SERV SERV VISUAL FOUNDATIO FOUNDATIO COLOR N N CMPRSN METHS RADEX 61835 ABDIFATAH GARDINER WRIST 6 [facility] H[facility] COMPLETE INC INC MINIMUM 3 VIEWS ECG 95429 LE LUJAN ROUTINE 6 [facility] ECG W/LEAST 12 LDS I&R ONLY US BREAST 62288 [facility] UNI REAL 5 N N TIME COMMUNTIY COMMUNTIY WITH HOSPITA HOSPITA IMAGE LIMITED CYTP C/V 94216 [facility] [employer] LYR PREPJ SCR MNL RESCR PHYS GENERAL 22972 COMBINED COMBINED HEALTH 5 PHYSICIAN PHYSICIAN PANEL S LA S LA LIPID 61662 COMBINED COMBINED PANEL 5 PHYSICIAN PHYSICIAN S LA S LA CUL BACT 52372 COMBINED COMBINED XCPT 5 PHYSICIAN PHYSICIAN URINE S LA S LA BLOOD/STO OL AEROBIC ISOL SEDIMENTA 88005 COMBINED COMBINED TION RATE 5 PHYSICIAN PHYSICIAN [place] [address] COMBINED COMBINED FREE 5 PHYSICIAN PHYSIC[place] [address] COMBINED COMBINED TRIIODOTH 5 PHYSICIAN PHYSICIAN YRONINE S LA S LA T3 TOTAL TT3 DUP-SCAN 12463 [place] SAM XTR VEINS 5 MEDICAL ERNESTINE IMAGING UNILATERA ASS L/LIMITED STUDY RADEX 23137 [place] SAM FOOT 4 MEDICAL ERNESTINE COMPLETE IMAGING MINIMUM 3 ASS VIEWS URINE 06676 [place] HIGUERA 4 MEDICAL SULY TEST SERV VISUAL FOUNDATIO COLOR N CMPRSN METHS TONSILLEC 00895 ABDIFATAH GARDINER SYED 4 [facility] PRIMARY/S INC INC ECONDARY AGE 12/> URINE 68727 ABDIFATAH GARDINER 4 [facility] TEST INC INC VISUAL COLOR CMPRSN METHS BLOOD 02594 ABDIFATAH GARDINER COUNT 4 [facility] COMPLETE INC INC AUTO&AUTO DIFRNTL WBC LEVEL III 21193 [facility], SURG 4 [facility] PATHOLOGY GROSS&VETO ROSCOPIC EXAM ECG 32275 ABDIFATAH CROCKETT ROUTINE 4 [facility] W/LEAST P 12 LDS I&R ONLY ANESTHESI 53750 COMMUNITY HANNY A 4 ANESTH CHARITY INTRAORAL OF THE WITH BLUE BIOPSY NOS CONTRACEP S4993 [facility] TIVE 4 DISTRICT DISTRICT PILLS FOR HLTH DEPT HLTH DEPT [facility] CONTROL URINE 44671 [facility] 4 DISTRICT DISTRICT TEST HLTH DEPT HLTH DEPT VISUAL [facility] COLOR CMPRSN METHS THERAPEUT 36065 ABDIFATAH GARDINER IC 4 [facility] PROPHYLAC INC INC TIC/DX INJECTION SUBQ/IM CONTRACEP J7304 [facility] 4 [facility] DISTRICT SUPPLY TH DEPT TH DEPT HORMONE [facility] CONTAININ G PATCH EA IADNA 71713 [facility] CHLAMYDIA 4 DISTRICT DISTRICT HLTH DEPT TH DEPT TRACHOMAT [facility] IS AMPLIFIED PROBE TQ CYTP 12134 [facility], PICKLESIM CERV/VAG 4 [facility] ER JR GIDEON AUTO THIN LAYER PREP MNL SCREEN IADNA 32560 [facility] NEISSERIA 4 DISTRICT DISTRICT TH DEPT [facility] DEPT GONORRHOE [facility] AE AMPLIFIED PROBE TQ LEVEL III 24624 [facility], ESTER SURG [address] [facility] NOAH PATHOLOGY GROSS&VETO ROSCOPIC EXAM LAPS SURG 75048 [facility] TOR ZHOU 4 PHYSICIAN PIETRO CHOLECYST S GROUP ECTOMY W/CHOLANG IOGRAPHY ANES 20358 COMMUNITY ZEENAT THERESA INTRAPERI 4 ANESTH TONEAL OF THE UPPER BLUE ABDOMEN W/LAPS NOS CHOLANGIO 85010 OC VARGAS GRAPHY&/P 4 MEDICAL ERNESTINE ANCREATOG IMAGING MARIA[place] ASS NTRAOP RS&[place] [address] ABDIFATAH GARDINER INFUSION 4 [facility] THERAPY INC INC PROPHYLAX IS/DX EA HOUR CHOLANGIO 03306 ABDIFATAH GARDINER GRAPHY&/P 4 [facility] ANCREATOG INC INC MARIAH NTRAOP RS&[place] [address] ABDIFATAH GARDINER LIPASE 4 [facility] INC INC LOCM Q9967 ABDIFATAH GARDINER 300-399 4 [facility] MG/ML INC INC IODINE CONCENTRA TION PER ML BLOOD 51719 ABDIFATAH GARDINER COUNT 4 [facility] COMPLETE INC INC AUTO&AUTO DIFRNTL WBC COMPREHEN 63256 ABDIFATAH GARDINER SIVE 4 [facility] METABOLIC INC INC PANEL COMPREHEN 25333 ABDIFATAH GARDINER SIVE 4 [facility] METABOLIC INC INC PANEL BLOOD 03497 ABDIFATAH GARDINER COUNT 4 [facility] COMPLETE INC INC AUTO&[place] [address] ABDIFATAH GARDINER AMYLASE 4 [place] [address] ABDIFATAH GARDINER LIPASE 4 [facility] INC INC HOSPITAL G0378 ABDIFATAH GARDINER OBSERVATI 4 [facility] ON INC INC SERVICE PER HOUR HOSPITAL G0378 ABDIFATAH GARDINER OBSERVATI 4 [facility] ON INC INC SERVICE PER HOUR INJECTION J1335 ABDIFATAH GARDINER 4 [facility] ERTAPENEM INC INC SODIUM [address] [place] [address] ABDIFATAH GARDINER LIPASE 4 [facility] INC INC INJECTION J2405 ABDIFATAH GARDINER 4 [facility] ONDANSETR INC INC ON HCL [place] 1 [place] [address] ABDIFATAH GARDINER AMYLASE 4 [place] [address] ABDIFATAH GARDINER INFUSION 4 [facility] THER INC INC PROPH ADDL SEQUENTIA L TO 1 [place] [address] ABDIFATAH GARDINER INFUSION 4 [facility] THERAPY INC INC PROPHYLAX IS/DX EA HOUR BLOOD 21943 ABDIFATAH GARDINER COUNT [address] [facility] COMPLETE INC INC AUTO&[place] [address] ABDIFATAH GARDINER INFUSION 4 [facility] THERAPY/P INC INC ROPHYLAXI S /DX 1ST TO 1 HR THERAPEUT 56538 ABDIFATAH GARDINER IC 4 [facility] INJECTION INC INC IV PUSH EACH NEW DRUG COMPREHEN 25716 ABDIFATAH GARDINER SIVE 4 [facility] METABOLIC INC INC PANEL C-REACTIV 54952 ABDIFATAH GARDINER E PROTEIN 4 [facility] INC INC RADIOLOGI 38838 ABDIFATAH GARDINER C EXAM 4 [facility] CHEST 2 INC INC VIEWS FRONTAL&[place] [address] ABDIFATAH GARDINER ABDOMINAL 4 [facility] REAL INC INC TIME W/IMAGE LIMITED URNLS DIP 72456 ABDIFATAH GARDINER 4 [facility] STICK/TAB INC INC LET REAGENT AUTO MICROSCOP Y URINE 41437 ABDIFATAH GARDINER 4 [facility] TEST INC INC VISUAL COLOR CMPRSN METHS VAGINAL 80875 [place] DELIVERY 4 MEDICAL SULY ONLY SERV W/POSTPAR [place] 7569 [facility] OTHER 4 N N CURRENT COMMUNTIY COMMUNTIY OBSTETRIC HOSPITA HOSPITA LACERATIO N OTHER 7359 [facility] MANUALLY 4 N N ASSISTED COMMUNTIY COMMUNTIY DELIVERY HOSPITA HOSPITA NEURAXIAL 49487 [place] K[place] ANT LABOR 4 ANESTHESI ANALG/ANE A GROUP S PLND PS VAGINAL DELIVERY CUL 96269 [facility] OF [facility] OF PRSMPTV 4 [place], PTHGNC INC. INC. ORGANISM SCRN W/COLONY ESTIMJ SYPHILIS 71063 [facility] OF TEST 4 [place], NON-TREPO INC. INC. NEMAL ANTIBODY QUAL ANTIBODY 33680 [facility] OF SCREEN 4 [place], RBC EACH INC. INC. SERUM TECHNIQUE BLOOD 66411 [facility] OF COUNT 4 [place], COMPLETE INC. INC. AUTOMATED BLOOD 56559 [facility] COUNT 3 DIAGNOSTI DIAGNOSTI COMPLETE CS CS AUTOMATED ANTIBODY 40180 [facility] SCREEN 3 DIAGNOSTI DIAGNOSTI RBC EACH CS CS SERUM TECHNIQUE SYPHILIS 91236 [facility] TEST 3 DIAGNOSTI DIAGNOSTI NON-TREPO CS CS NEMAL ANTIBODY QUAL COMPREHEN 71691 [facility] SIVE 3 DIAGNOSTI DIAGNOSTI METABOLIC CS CS PANEL LACTATE 94850 [facility] DEHYDROGE 3 DIAGNOSTI [place] [address] [facility] BLOOD/URI 3 DIAGNOSTI DIAGNOSTI C ACID CS CS [place] PREG 09567 [place] UTERUS 3 MEDICAL DONELL REAL TIME SERV F/U FOUNDATIO TRNSABDL PER FETUS DETERMINA 97974 ESTER NORMAN TION 3 GRE GRE REFRACTIV E STATE OPHTH 76840 ESTER ESTER MEDICAL 3 GRE GRE XM&EVAL COMPRE NEW PT 1/> VST GLUCOSE 31413 [facility] POST 3 DIAGNOSTI DIAGNOSTI GLUCOSE CS CS DOSE US PREG 52233 [place] [facility] UTERUS 3 MEDICAL DONELL AFTER 1ST SERV TRIMEST FOUNDATIO GESTATION URNLS DIP 32976 ABDIFATAH GARDIENR 3 [facility] STICK/TAB INC INC LET REAGENT AUTO MICROSCOP Y CULTURE 33142 ABDIFATAH GARDINER BACTERIAL 3 [facility] INC [place] [address] ESTER GALLAGHER LUIS FERNANDO 3 EMERGENCY UTERUS SERVICES LIMITED 1/> FETUSES Encounters Encounter Start End Date Code Location Performer Type Date [facility] [place] [address] 7 N INPATIENT COMMUNTIY HOSPITA OFFICE 27646 BAILEY HIGUERA OUTPATIEN 7 7 MEDICAL T VISIT SERV 15 FOUNDATIO MINUTES N HOSPITAL [facility] 7 7 [facility] OUTPATIEN E [facility] 7 7 HEALTHCAR OUTPATIEN E T HOSPITALS EMERGENCY 02781 [facility] 7 7 MILLIE DEPARTMEN EMERGENCY T VISIT SERVI MODERATE SEVERITY EMERGENCY 53632 [facility] WONG DEPT 7 7 PHYSICIAN VISIT S, PLLC HIGH SEVERITY& THREAT FUNCJ EMERGENCY 92850 ABDIFATAH 7 7 [facility] T VISIT HIGH/URGE NT SEVERITY HOSPITAL ABDIFATAH - 7 7 [facility] OUTPATIEN [facility] - 7 7 [facility] ABDIFATAH [facility] 7 7 [facility] T [facility] 47143 [facility] 6 6 DISTRICT DISTRICT T VISIT HL DEPT [facility] DEPT 10 [facility] - 6 6 N [facility] T HOSPITA EMERGENCY 82353 [facility] 6 6 [facility] EMERGENCY PAT T VISIT PHYS HIGH/URGE NT SEVERITY OFFICE 38057 BAILEY HIGUERA OUTPATIEN 6 6 MEDICAL SULY T VISIT SERV 15 FOUNDATIO MINUTES [facility] UNIVERSIT - 6 6 Y [facility] T OFFICE 66607 SHAYLA MCGUIRE [facility] 6 6 ARJIV RAJIV T VISIT 15 MINUTES HOSPITAL ABDIFATAH - 6 6 [facility] 33904 CARLOS HENRIQUEZ 6 6 PHYSICIAN U [facility] T VISIT MODERATE SEVERITY EMERGENCY 27321 ABDIFATAH 6 6 [facility] INC T VISIT LIMITED/M INOR PROB OFFICE 46149 SHAYLA MCGUIRE [facility] 6 6 RAJIV RAJIV T VISIT 15 MINUTES OFFICE 90841 [facility] SMITH CONSULTAT 6 6 MSO, [facility] ION NEW/ESTAB PATIENT 40 MIN OFFICE 99296 BAILEY HIGUERA OUTPATIEN 6 6 MEDICAL SULY T VISIT SERV 15 FOUNDATIO MINUTES N OFFICE 59138 [facility] SCOTT OUTPATIEN 6 6 PHYSICIAN HUSSEIN T NEW 30 S GROUP MINUTES OFFICE 56150 LUISALBERT LUISALBERT OUTPATIEN 6 6 RAJIV RAJIV T VISIT 15 MINUTES OFFICE 31262 BAILEY HIGUERA OUTPATIEN 6 6 MEDICAL SULY T VISIT SERV 15 FOUNDATIO MINUTES HOSPITAL ABDIFATAH - 6 6 [facility] OUTPATIEN INC T EMERGENCY 65767 LE STEELENETT 6 6 [facility] T VISIT HIGH/URGE NT SEVERITY OFFICE 89135 SHAYLA MCGUIRE OUTPATIEN 6 6 RAJIV RAJIV T VISIT 15 MINUTES OFFICE 57658 [facility] OUTPATIEN 5 5 [facility] T NEW 45 SURGICAL MINUTES [facility] 5 5 N OUTPATIEN COMMUNTIY T HOSPITA PERIODIC 90911 BAILEY HIGUERA PREVENTIV 5 5 MEDICAL SULY E MED EST SERV PATIENT FOUNDATIO 18-39 YRS N OFFICE 79216 [facility] 5 5 [facility] T VISIT HLTH DEPT TH DEPT 15 [facility] MINUTES OFFICE 30966 SHAYLA MCGUIRE OUTPATIEN 5 5 RAJIV RAJIV T VISIT 15 MINUTES OFFICE 03974 SHAYLA MCGUIRE OUTPATIEN 5 5 RAJIV RAJIV T VISIT 15 MINUTES HOSPITAL ABDIFATAH - 5 5 [facility] OUTPATIEN INC T EMERGENCY 76612 ABDIFATAH 5 5 [facility] INC T VISIT MODERATE SEVERITY EMERGENCY 52449 ABDIFATAH WONG 5 5 [facility] T VISIT P LOW/MODER SEVERITY OFFICE 19716 VICKI PATRICK OUTPATIEN 4 4 FOOT & T NEW 30 ANKLE CE MINUTES HOSPITAL ABDIFATAH - 4 4 [facility] OUTPATIEN INC T OFFICE 45101 LUISLABERT SMITHLABERT OUTPATIEN 4 4 RAJIV RAJIV T VISIT 15 MINUTES OFFICE 60296 BAILEY HIGUERA OUTPATIEN 4 4 MEDICAL SULY T VISIT SERV 15 FOUNDATIO MINUTES N OFFICE 96034 SONIA SCOTT OUTPATIEN 4 4 HUSSEIN HUSSEIN T VISIT 15 MINUTES EMERGENCY 19421 [facility] 4 4 [facility] DEPARTMEN T VISIT HIGH/URGE NT SEVERITY HOSPITAL ABDIFATAH - 4 4 [facility] OUTPATIEN INC T OFFICE 86680 [facility] 4 4 [facility] T VISIT [facility] DEPT [facility] DEPT 15 [facility] MINUTES OFFICE 39058 [facility] OUTPATIEN 4 4 [facility] T [facility]ISIT TH DEPT [facility] DEPT 10 [facility] MINUTES OFFICE 94429 LUISALBERT SHAYLA OUTPATIEN 4 4 RAJIV RAJIV T VISIT 15 MINUTES OFFICE 35839 SONIA SCOTT OUTPATIEN 4 4 HUSSEIN HUSSEIN T NEW 30 MINUTES EMERGENCY 69151 ALFARIS ALFARIS 4 4 [facility] DEPARTMEN T VISIT HIGH/URGE NT SEVERITY HOSPITAL ABDIFATAH - 4 4 [facility] OUTPATIEN INC T PERIODIC 74441 [facility] PREVENTIV 4 4 [facility] E MED EST TH DEPT [facility] DEPT PATIENT RUTH RUTH 18-39 YRS HOSPITAL ABDIFATAH - 4 4 [facility] OUTPATIEN INC T HOSPITAL ABDIFATAH - 4 4 [facility] OUTPATIEN INC T OFFICE 16221 [facility] TOR ZHOU CONSULTAT 4 4 PHYSICIAN PIETRO OLIVEIRA NEW/ESTAB PATIENT 60 MIN HOSPITAL ABDIFATAH - 4 4 [facility] OUTPATIEN INC T EMERGENCY 71638 ABDIFATAH DEPT 4 4 MEM [facility] VISIT INC HIGH SEVERITY& THREAT FUNCJ OFFICE 35214 [facility] JUDITH OUTPATIEN 4 4 PHYSICIAN VETO T NEW 20 S GROUP [facility] [place] [address] 4 N INPATIENT COMMUNTIY HOSPITA OFFICE 99365 BAILEY VANNPATIEN 4 4 MEDICAL SULY T VISIT SERV 15 FOUNDATIO MINUTES OFFICE 98405 BAILEY HIGUERA OUTPATIEN 4 4 MEDICAL SULY T VISIT SERV 15 FOUNDATIO MINUTES OFFICE 28036 BAILEY HIGUERA OUTPATIEN 3 3 MEDICAL SULY T VISIT SERV 15 FOUNDATIO MINUTES Emergency FERNANDA Gallagher MD (ER) 3 16:00 3 16:31 [facility] EMERGENCY 26446 ESTER [facility] DEPT 3 3 EMERGENCY VISIT SERVICES HIGH SEVERITY& THREAT FUNCJ EMERGENCY 62035 ABDIFATAH 3 3 [facility] DEPARTMEN INC T VISIT LOW/MODER SEVERITY HOSPITAL ABDIFATAH - 3 3 [facility] OUTPATIEN INC T
--- OUTSIDE RECORDS SUMMARY | 2017-03-24 18:12 | External Medical Summary Rpt | CCD ---
Author Author , YASMEEN Organization YASMEEN Address Unknown Phone [email or web address] Team Providers Care Mosaicist Name Role Phone ALFARIS MOH, ALFARIS Unavailable [...] VETO JUDITH VETO, JUDITH Unavailable Unavailable VETO [facility] BURROUGHS FERMÍN, BURROUGHS Unavailable Unavailable FERMÍN [facility] Unavailable Unavailable INC, [facility] Unavailable Unavailable HOSPITAL P, [facility] P HIGUERA, HIGUERA Unavailable Unavailable HIGUERA SULY, HIGUERA Unavailable Unavailable SULY CARPENTER, CARPENTER Unavailable Unavailable CARPENTER, CARPENTER Unavailable Unavailable [facility], Unavailable Unavailable [facility] PIERCE CHAPIN Unavailable Unavailable [facility] Unavailable Unavailable GROUP PS, [facility] Unavailable Unavailable [facility], [facility], Unavailable Unavailable [facility] Sarika Gallagher MD, Unavailable Unavailable Sarika Gallagher MD [facility], [facility] Un[facility] Unavailable Unavailable [facility] Unavailable Unavailable [facility] SCOTT HUSSEIN, SCOTT Unavailable Unavailable HUSSEIN SCOTT HUSSEIN, SCOTT Unavailable Unavailable HUSSEIN [facility] Un[facility] Unavailable [facility], [facility] KASEY ANT, KASEY ANT Unavailable Unavailable ESTER NOAH, Unavailable Unavailable ESTER NOAH [facility], Unavailable Unavailable [facility], Unavailable Unavailable [facility] Unavailable Unavailable SERVICES, [facility] O'GREGOR, O'GREGOR Unavailable Unavailable O'GREGOR DONELL, O'GERGOR Unavailable Unavailable DONELL [facility] [...] SOTINGEANU SARAH [facility] Unavailable Unavailable [facility]ER[facility]Y PHYS, [facility] Unavailable Unavailable EMERGENCY SERVI, [facility] TALAMANTES RAY, TALAMANTES Unavailable Unavailable RAY CAIN, BARLOW Unavailable Unavailable HANNY CHARITY, HANNY Unavailable Unavailable [facility] Unavailable Unavailable HOSPITALS, [facility], Unavailable Unavailable [facility] Unavailable Unavailable DEPT [facility] DEPT [facility] Unavailable Unavailable DEPT [facility] DEPT [facility] ELLIOTT GOULD, ELLIOTT GOULD Unavailable Unavailable Purpose Continuity of Care Document - 12-15-2012 through 2016 Problems Code Diagnosis DOS Provider Status E039 HYPOTHYROID 01-26-2017 [place] [facility] UNSPECIFIED [facility] E6601 MORBID 01-26-2017 [facility] OBESITY DUE HOSPITA TO EXCESS CALORIES O701 SECOND 01-26-2017 [facility] DEGREE COMMUNTI PERINEAL HOSPITA LACERATION DUR DELIVERY O76 ABNORMALITY 01-26-2017 [facility] IN COMMUNTIY HRT RATE HOSPITA RHYTHM COMP L & D O80 ENCOUNTER 01-26-2017 [place] [facility] FULL-TERM GROUP PS UNCOMPLICAT ED DELIVERY F54834 OBESITY 01-26-2017 [place] [facility] COM[facility]IC[facility] G [facility] CHILDBIRTH Y04743 ENDOCRINE 01-26-2017 [place] [facility] N[facility]ITION [facility] SERV METAB DZ [facility] COMP CHILDBIRTH Q82197 SMOKING 01-26-2017 [place] [facility] TOBACCO SERV COMPLICATIN FOUNDATION G CHILDBIRTH Z370 SINGLE LIVE 01-26-2017 [place] [facility] Z382 SINGLE 01-26-[address] [facility] LIVE[facility] NERI STOUT UNS TO PLACE OF Z6841 BODY MASS 01-26-2017 [facility] INDEX BMI COMMUNTIY 40.0-44.9 HOSPITA ADULT E663 OVERWEIGHT 01-06-2017 [place] [facility] U07839 OBESITY 01-06-2017 [place] [facility] COMPLICAT[facility] G [facility] THIRD TRIMESTER W19898 ENDOCRINE 01-06-2017 [place] [facility] NUTRITION SERV METAB DZ [facility] COMP PREG 3RD TRI D51448 OTH MENTAL 01-06-2017 [place] [facility] DISORDER SERV COMP [facility] 3RD TRIMESTER Z23 ENCOUNTER 01-06-2017 [place] [facility] FOR SERV IMMUNIZATIO FOUNDATION N Z3483 ENC 01-06-2017 [facility] NORMAL HOSPITALS 3 TRIMESTER Z36 ENCOUNTER 01-06-2017 [facility] SCREENING OF MOTHER Z3A36 36 WEEKS 01-06-2017 [facility] Z6842 BODY MASS 01-06-2017 [place] [facility] IN[facility] BMI SERV 45.0-49.9 FOUNDATION ADULT E669 OBESITY 12-01-2016 [place] [facility] UNSPECIFIED SERV [facility] Z3A31 31 WEEKS 12-01-2016 [place] [facility] GESTATION SERV OF [facility] H6692 OTITIS 11-27-2016 [facility] UNSPECIFIED SERVI LEFT EAR J069 ACUTE UPPER 11-27-2016 [facility] N [facility]ERG[facility]Y RESPIRATORY SERVI INFECTION UNSPECIFIED O82141 DISEASES 11-27-2016 [facility] N EMERGENCY SYS COMP SERVI 3RD TRI Z3A30 30 WEEKS 11-27-2016 [facility] GESTATION N EMERGENCY OF SERVI K529 NONINFECTIV 11-10-2016 [facility] E PHYSICIANS, GASTROENTER PLLC ITIS & COLITIS UNS K9289 OTHER 11-10-2016 [facility] SPECIFIED [facility] DISEASES OF INC THE DIGESTIVE SYSTEM H52223 DISEASES 11-10-2016 [facility] DIGESTIVE PHYSICIANS, SYSTEM COMP PLLC 2ND TRI E92239 DISEASES 11-10-2016 [facility] DIGESTIVE [facility] SYSTEM COMP INC 3RD TRI Z3A28 28 WEEKS 11-10-2016 [facility] GESTATION PHYSICIANS, OF PLLC K589 IRRITABLE 10-29-2016 [facility] WITHOUT DIARRHEA O2342 UNS INF 10-29-2016 [facility] SECOND TRIMESTER S18102 ENDOCRINE 10-29-2016 [facility] METAB DZ HOSPITALS COMP PREG 2ND TRI Z3A26 26 WEEKS 10-29-2016 [facility] O2692 10-27-2016 [facility] RELATED [facility] CONDITIONS INC UNS 2ND TRIMESTER R109 UNSPECIFIED 10-27-2016 [facility] ABDOMINAL [facility] PAIN INC 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 H5213 MYOPIA 10-14-2016 HAIR BILATERAL H91967 OBESITY 09-20-2016 [place] [facility] COMPLICATIN SERV G FOUNDATION SECOND TRIMESTER Z3A20 20 WEEKS 09-20-2016 [place] [facility] GESTATION SERV OF FOUNDATION Z3189 ENCOUNTER 06-10-2016 [facility] FOR OTHER DISTRICT PROCREATIVE [facility] DEPT MANAGEMENT RUTH Z3201 ENCOUNTER 06-10-2016 [facility] FOR DISTRICT HLTH DEPT TEST RESULT RUTH POSITIVE H538 OTHER 04-08-2016 [facility] VISUAL COMMUNTIY DISTURBANCE HOSPITA S H539 UNSPECIFIED 04-08-2016 [facility] VISUAL N EMERGENCY DISTURBANCE PHYS R110 NAUSEA 04-08-2016 [facility] R51 HEADACHE 04-08-2016 [facility] N EMERGENCY PHYS Z720 TOBACCO USE 04-08-2016 [facility] N921 EXCESS & 03-18-2016 [facility] MENSTRUATIO N W/IRREGULAR CYCLE C25493 OTHER LONG 03-18-2016 [facility] CURRENT DRUG THERAPY V60464 PAIN IN 03-05-2016 ARNALBERT VANCE UNSPECIFIED FOOT M722 PLANTAR 01-21-2016 [facility] FASCIAL PHYSICIANS, FIBROMATOSI [facility] S Q82594 PAIN IN 01-21-2016 [place] LEFT FOOT [facility] IM[facility]ING ASS V61502 OTHER 01-16-2016 ARNALBERT RAJIV MIGRAINE INTRACT W/O STATUS MIGRAINOSUS D649 ANEMIA 12-19-2015 COMBINED UNSPECIFIED PHYSICIANS LA E119 TYPE 2 12-19-2015 [facility] DIABETES PHYSICIANS MELLITUS LA WITHOUT COMPLICATIO NS E785 HYPERLIPIDE 12-19-2015 [facility]ED CONSTANTIN PHYSICIANS UNSPECIFIED LA I10 ESSENTIAL 12-19-2015 [facility] PRIMARY PHYSICIANS HYPERTENSIO LA N N63 UNSPECIFIED 11-25-2015 [place] [facility] BREAST N644 MASTODYNIA 11-25-2015 [facility] R590 LOCALIZED 11-25-2015 [place] ENLARGED [facility] LYMPH NODES B379 CANDIDIASIS 11-18-2015 [facility] UNSPECIFIED [facility] N6009 SOLITARY 11-18-2015 [place] [facility] CYST OF SERV UNSPECIFIED FOUNDATION BREAST Z0100 ENCOUNTER 09-20-2015 ESTER EXAM EYES & GRE VISION W/O ABNORMAL FIND J0100 ACUTE 09-11-2015 [facility] MAXILLARY PHYSICIANS SINUSITIS GROUP UNSPECIFIED J320 CHRONIC 09-11-2015 [facility] MAXILLARY PHYSICIANS SINUSITIS GROUP M2662 ARTHRALGIA 09-01-2015 SHAYLA RAJIV OF TEMPOROMAND IBULAR JOINT R102 PELVIC AND 08-13-2015 [place] [facility] PERINEAL SERV PAIN FOUNDATION P61498 PAIN IN 07-16-2015 [place] RIGHT WRIST MEDICAL IM[facility]ING ASS M6740 GANGLION 07-16-2015 [facility] UNSPECIFIED MEM HOSP SITE INC K219 GASTRO-ESOP 07-12-2015 LE MARLEY H REFLUX DISEASE WITHOUT ESOPHAGITIS 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 R0789 OTHER CHEST 07-12-2015 LE [facility] PAIN R079 CHEST PAIN 07-09-2015 ARNOLD RAJIV UNSPECIFIED G22481 ENCOUNTER 05-22-2015 [facility] PRESSROOM FOREMAN EXAM LLC GENERAL RTN W/O ABNORMAL FIND 1121 CANDIDIASIS 01-28-2015 [facility] OF [place] [facility] AND VAGINA [facility] DEPT RUTH 6101 DIFFUSE 01-28-2015 [facility] CYSTIC DISTRICT MASTOPATHY TH DEPT RUTH 59043 SPASM OF 12-13-2014 [place] RAJIV MUSCLE 2724 OTHER AND 08-21-2014 COMBINED UNSPECIFIED PHYSICIANS LA HYPERLIPIDE CONSTANTIN 4659 ACUTE URIS 08-21-2014 ARNOLD RAJIV OF UNSPECIFIED SITE 59663 FEVER 08-21-2014 [place] [address] OTHER 08-21-2014 COMBINED MALAISE AND PHYSICIANS FATIGUE LA 7295 PAIN IN 06-19-2014 [place] SOFT MEDICAL TISSUES OF IMAGING ASS LIMB 65923 CALCANEAL 05-13-2014 [place] [address] OTHER 05-13-2014 VICKI ENTHESOPATH FOOT & Y OF ANKLE ANKLE CE AND TARSUS 98058 PAIN IN 05-06-2014 [facility] JOINT, MEM HOS[facility] ANKLE AND INC FOOT V2501 GENERAL 04-23-2014 [place] [facility] COUNSELING SERV PRESCRIPTIO FOUNDATION N ORAL CONTRACEPTS V7241 04-23-2014 [place] [facility] EXAMINATION SERV OR TEST [facility] NEGATIVE RESULT 75340 UNSPECIFIED 03-28-2014 SCOTT HUSSEIN ACUTE NONSUPPURAT SOPHIA OTITIS MEDIA 34135 OTHER ACUTE 03-27-2014 JUDITH VETO POSTOPERATI VE PAIN 7841 THROAT PAIN 03-27-2014 JUDITH VETO 71035 OBSTRUCTIVE 03-21-2014 [facility] P 463 ACUTE 03-21-2014 [facility] TONSILLITIS LLC 98761 CHRONIC 03-21-2014 SCOTT HUSSEIN TONSILLITIS 84237 HYPERTROPHY 03-21-2014 [facility], OF TONSILS LLC ALONE V2541 SURVEILLANC 03-19-2014 [facility] E PREV DISTRICT PRESCRIBED [facility] DEPT CONTRACEPT RUTH PILL V2689 OTHER 03-19-2014 [facility] SPECIFIED DISTRICT PROCREATIVE [facility] DEPT MANAGEMENT RUTH 462 ACUTE 03-05-2014 SHAYLA VANCE PHARYNGITIS 6929 CONTACT 03-05-2014 SHAYLA RAJIV DERMATITIS& OTHER ECZEMA DUE UNSPEC CAUSE V2503 ENCOUNTER 03-05-2014 [facility] EMERGENCY DISTRICT CONTRACEPT [facility] DEPT CNSL&PRESCR RUTH IPTION 2893 LYMPHADENIT 02-28-2014 SONIA HUSSEIN IS UNSPECIFIED EXCEPT MESENTERIC 5282 ORAL 02-16-2014 [facility] APHTHAE [facility] INC V2549 SURVEILLANC 12-25-2013 [facility] E OTH PREV DISTRICT PRSC [facility] DEPT CONTRACEPT RUTH METHOD V7231 ROUTINE 12-25-2013 [facility] GYNECOLOGIC LLC AL EXAMINATION 32165 CALCU 09-17-2013 [facility] GALLBLADD LLC W/OTH CHOLECYST W/O MENTION OBST 95215 CALCU 09-17-2013 [facility] GALLBLADD PHYSICIANS W/O MENTION GROUP CHOLECYST/O BST 55021 CHOLECYSTIT 09-17-2013 COMMUNITY IS, ANESTH OF UNSPECIFIED THE BLUE 5770 ACUTE 09-17-2013 [facility] PANCREATITI PHYSICIANS S GROUP V4579 OTHER 09-17-2013 [place] ACQUIRED MEDICAL ABSENCE OF IMAGING ASS ORGAN 5758 OTHER 09-12-2013 [facility] SPECIFIED [facility] DISORDER OF INC GALLBLADDER 65692 MORBID 09-06-2013 [facility] OBESITY [facility] INC 20541 CALCU BD 09-06-2013 [facility] W/ACUT [facility] CHOLECYST INC W/O MENTION OBST V8541 BODY MASS 09-06-2013 [facility] INDEX [facility]P 40.0-44.9 INC ADULT 51201 ABDOMINAL 09-01-2013 [facility] PAIN RIGHT PHYSICIANS UPPER GROUP QUADRANT 38939 BENIGN 07-09-2013 [facility] ESSENTIAL COMMUNTIY HYPERTENSIO HOSPITA N WITH DELIVERY 61233 IVETTE 07-09-2013 [place] [facility] ESSENTIAL SERV HYPERTENSIO FOUNDATIO N W/DELIV W/CURRENT PPC 53601 OBESITY 07-09-2013 [place] [facility] COMP PG SERV CHILDBIRTH/ FOUNDATIO THE PP DEL W/PP COMP 650 NORMAL 07-09-2013 [place] [address] SECOND-DEGR 07-09-2013 [facility] LACERATION HOSPITA WITH DELIVERY V270 OUTCOME OF 07-09-2013 [place] [facility] DELIVERY SERV SINGLE FOUNDATIO LIVEBORN 60005 OBESITY, 07-06-2013 [place] [facility] UNSPECIFIED SERV FOUNDATIO 4019 UNSPECIFIED 07-06-2013 [place] [facility] ESSENTIAL SERV HYPERTENSIO FOUNDATIO N 82155 UNSPECIFIED 07-06-2013 [place] [facility] HYPERTENSIO FOUNDATIO N ANTEPARTUM V239 UNSPECIFIED 07-06-2013 [place] [facility] HIGH-RISK SERV FOUNDATIO V2389 SUPERVISION 06-29-2013 [facility] OF OF [facility] HIGH-RISK 48144 UTERINE 05-23-2013 [place] MEDICAL SIZE DATE SERV DISCREPANCY FOUNDATIO ANTPRTM COND/COMPL V720 EXAMINATION 05-17-2013 ESTER OF EYES GRE AND VISION V221 SUPERVISION 03-30-2013 [facility] OTHER DIAGNOSTICS NORMAL 48216 UNS 02-28-2013 [place] [facility]ICAL &PLACN SERV TL PROB FOUNDATIO AFFCT MGMT MOTH ANTPRTM V2881 ENCOUNTER 02-28-2013 [place] [facility] FOR SERV ANATOMIC FOUNDATIO SURVEY 599.0 599.0 URIN 12-15-2012 [facility] INFECTION Hospital NOS 5990 URINARY 12-15-2012 [facility] INFECTION INC SITE NOT SPECIFIED 646.83 646.83 PREG 12-15-2012 [facility] NEC-ANTEPAR Hospital T 16785 INFECTIONS 12-15-2012 EST[facility] OF EMERGENCY GENITOURINA SERVICES RY TRACT ANTEPARTUM 45103 OTHER 12-15-[address] [facility] N ANTEPARTUM Allergies, [...] NT ET HI AN A IN C ND 39 09 09 30 30 00 EA Ac EN 32 -0 -[address] ti AT 80 5- 9- 00 00 SI ve AL 10 20 20 49 DE 61 17 17 33 0 11 PH TA AR VT MA N CY PL US OF CY [...] HI UL AN E A IN C ND 39 08 08 30 30 00 EA Ac EN 32 -0 -[address] ti AT 80 1- 5- 00 00 SI ve AL 10 20 20 49 DE 61 17 17 33 0 11 PH TA AR VT MA N CY PL US OF CY [...] NT ET HI AN A IN C ND 39 07 07 30 30 00 EA Ac EN 32 -0 -[address] ti AT 80 3- 8- 00 00 SI ve AL 10 20 20 49 DE 61 17 17 33 0 11 PH TA AR VT MA N CY PL US OF CY [...] 5 79 PH CE AR TA MA VT CY NO PH OF EN CY NT [...] Cnc CHLAMYDIA AND GONORRHEA TESTING (12-26-2013 09:10) [employer]: Abigail Goyal MD FCAP Lab: [facility] Division of Laboratory Services Lab Address: [address] [place] [address], [address] [place] [address] 12-26-2013 9:10 am Specimen Collection Start Date/Time: Portal Administrator: Specimen Fer'vinicius 12-31-2013 10:00 am Date/Time: Ordering Physician: [facility] 01-03-2014 8:32 am Results Rpt/Status Change Date/Time: [...] Procedures Procedure DOS Code Location Performer Comment [facility] 03037 OC P[place]AYO DISCHARGE 7 [email or web address] DAY MANAGEMEN T 30 MIN/< VAGINAL 96286 [place] HIGUER[place] DELIVERY 7 MEDICAL ONLY SERV FOUNDATIO N 1ST [address] [facility] H[facility]/NIMO 7 MSO, [facility] CARE PER DAY NML NB NEURAXIAL 34564 OC DAVIS LABOR 7 ANESTHESI ANALG/ANE A GROUP S PLND PS VAGINAL DELIVERY DRAINAGE [id number] [facility] AMNIOTIC 7 N N FLUID COMMUNTIY COMMUNTIY THERAPEUT HOSPITA HOSPITA POC SAI/ART OP DELIVERY [id number] [facility] PRODUCTS 7 N N OF COMMUNTIY COMMUNTIY CONCEPTIO HOSPITA HOSPITA N EXTERNAL REPAIR [id number] [facility] PERINEUM 7 N N MUSCLE COMMUNTIY COMMUNTIY OPEN HOSPITA HOSPITA APPROACH IADNA 13063 [facility] STREPTOCO 7 HEALTHCAR HEALTHCAR CCUS E E GROUP B [facility] AMPLIFIED PROBE TQ IM ADM 14629 [facility] DAVIDA PRQ ID 7 MEDICAL SUBQ/IM SERV NJXS 1 FOUNDATIO VACCINE N TDAP 69859 [facility] DAVIDA VACCINE 7 7 MEDICAL YRS/> IM SERV FOUNDATIO N BLOOD 15852 [place] COUNT 7 HEALTHCAR HEALTHCAR COMPLETE E E AUTOMATED [facility] US PREG 22560 BAILEY O'GREGOR UTERUS 7 MEDICAL REAL TIME SERV F/U FOUNDATIO [place] [address] [facility] THYROID 7 HEALTHCAR HEALTHCAR STIMULATI E E NG [facility] HORMONE TSH THERAPEUT 53762 [facility] GARDINER IC 7 MEM HOSP MEM HOSP INJECTION INC INC IV PUSH EACH NEW DRUG CULTURE 89304 [facility] GARDINER BACTERIAL 7 MEM HOSP MEM HOSP INC [place] [address] [facility] GARDINER INFUSION 7 MEM HOSP MEM HOSP THERAPY/P INC INC ROPHYLAXI S /DX 1ST TO 1 HR BLOOD 72389 [facility] GARDINER COUNT 7 MEM HOSP MEM HOSP COMPLETE INC INC AUTO&AUTO DIFRNTL WBC COMPREHEN 21148 [facility] GARDINER SIVE 7 MEM HOSP MEM HOSP METABOLIC INC INC PANEL URNLS DIP 13346 [facility] GARDINER 7 MEM HOSP MEM HOSP STICK/TAB INC INC LET REAGENT AUTO MICROSCOP Y GLUCOSE 27336 [place] [facility] POST 7 HEALTHCAR HEALTHCAR GLUCOSE E E DOSE [facility] DRUG TEST 58572 [facility] GARDINER PRSMV 7 MEM HOSP MEM HOSP QUAL DIR INC INC OPTICAL OBS PER DAY CULTURE 18778 [facility] GARDINER BACTERIAL 7 MEM HOSP MEM HOSP INC INC QUANTTATI VE COLONY COUNT URINE 09600 [facility] GARDINER NONSTRESS 7 MEM HOSP MEM HOSP TEST INC INC FITTING 20220 JAYDEN CARPENTER SPECTACLE 7 S XCPT APHAKIA MONOFOCAL FRAMES V2020 [facility] HAIR PURCHASES 7 1 VISN V2103 [facility] HAIR PLANO 7 TO+/-4.00 D SPHER 0.12-2.00 D CYL EA US PREG 78970 [place] O'GREGOR UTERUS 7 MEDICAL AFTER 1ST SERV TRIMEST FOUNDATIO N GESTATION URINE 06196 [facility] 6 DISTRICT DISTRICT TEST HLTH DEPT HLTH DEPT VISUAL [place] [address] [facility] [place] TALAMANTES HEAD/BRAI 6 RADIOLOGY RAY [place] [address] [facility] THYROID 6 Y Y STIMULATI [facility] NG HORMONE TSH URINE 55736 BAILEY HIGUERA 6 MEDICAL SULY TEST SERV VISUAL FOUNDATIO COLOR N CMPRSN METHS BLOOD 40744 [facility] COUNT 6 Y Y COMPLETE [facility] AUTOMATED RADEX 38152 [place] ADKINS ALL FOOT 6 MEDICAL COMPLETE IMAGING MINIMUM 3 [place] [address] COMBINED COMBINED FREE 6 PHYSICIAN PHYSIC[place] [address] COMBINED COMBINED THYROID 6 PHYSICIAN PHYSICIAN STIMULATI S LA S LA NG HORMONE TSH SEDIMENTA 23487 COMBINED COMBINED TION RATE 6 PHYSICIAN PHYSICIAN RBC S LA S LA NON-AUTOM ATED 25 54808 COMBINED COMBINED HYDROXY 6 PHYSICIAN PHYSICIAN INCLUDES S [place] [address] COMBINED COMBINED TRIIODOTH 6 PHYSICIAN PHYSICIAN YRONINE S LA S LA T3 TOTAL TT3 BLOOD 68846 COMBINED COMBINED COUNT 6 PHYSICIAN PHYSICIAN COMPLETE S LA S LA AUTO&AUTO DIFRNTL WBC HEMOGLOBI 41620 COMBINED COMBINED N 6 PHYSICIAN PHYSICIAN GLYCOSYLA S LA S LA MARVA A1C COMPREHEN 09302 COMBINED COMBINED SIVE 6 PHYSICIAN PHYSICIAN METABOLIC S LA S LA PANEL LIPID 35279 COMBINED COMBINED PANEL 6 PHYSICIAN PHYSICIAN S LA S LA OPHTH 62802 [facility] 6 GRE GRE XM&EVAL COMPRHNSV ESTAB PT 1/> URINE 93254 [place] 6 MEDICAL MEDICAL TEST SERV SERV VISUAL FOUNDATIO FOUNDATIO COLOR N N CMPRSN METHS RADEX 18637 [facility] GARDINER WRIST 6 MEM HOSP MEM HOSP COMPLETE INC INC MINIMUM 3 VIEWS ECG 54338 LE LUJAN ROUTINE 6 [facility] ECG W/LEAST 12 LDS I&R ONLY US BREAST 07285 [facility] UNI REAL 5 N N TIME COMMUNTIY COMMUNTIY WITH HOSPITA HOSPITA IMAGE LIMITED CYTP C/V 80583 [facility] AUTO THIN 5 LLC LLC LYR PREPJ SCR MNL RESCR PHYS GENERAL 65031 COMBINED COMBINED HEALTH 5 PHYSICIAN PHYSICIAN PANEL S LA S LA LIPID 31393 COMBINED COMBINED PANEL 5 PHYSICIAN PHYSICIAN S LA S LA CUL BACT 64356 COMBINED COMBINED XCPT 5 PHYSICIAN PHYSICIAN URINE S LA S LA BLOOD/STO OL AEROBIC ISOL SEDIMENTA 17326 COMBINED COMBINED TION RATE 5 PHYSICIAN PHYSICIAN [place] [address] COMBINED COMBINED FREE 5 PHYSICIAN PHYSIC[place] [address] COMBINED COMBINED TRIIODOTH 5 PHYSICIAN PHYSICIAN YRONINE S LA S LA T3 TOTAL TT3 DUP-SCAN 84466 [place] SAM XTR VEINS 5 MEDICAL ERNESTINE IMAGING UNILATERA ASS L/LIMITED STUDY RADEX 06838 [place] SAM FOOT 4 MEDICAL ERNESTINE COMPLETE IMAGING MINIMUM 3 ASS VIEWS URINE 14120 [place] 4 MEDICAL SULY TEST SERV VISUAL FOUNDATIO COLOR N CMPRSN METHS TONSILLEC 55990 [facility] GARDINER SYED 4 [facility] H[facility]P [facility] PRIMARY/S INC INC ECONDARY AGE 12/> URINE 84781 [facility] GARDINER 4 MEM HOSP MEM HOSP TEST INC INC VISUAL COLOR CMPRSN METHS BLOOD 79031 [facility] GARDINER COUNT 4 MEM H[facility] COMPLETE INC INC AUTO&AUTO DIFRNTL WBC LEVEL III 10873 [facility] SURG 4 [facility] PATHOLOGY GROSS&VETO ROSCOPIC EXAM ECG 42991 [facility] CROCKETT ROUTINE 4 [facility] W/LEAST P 12 LDS I&R ONLY ANESTHESI 79685 COMMUNITY HANNY A 4 ANESTH CHARITY INTRAORAL OF THE WITH BLUE BIOPSY NOS CONTRACEP S4993 [facility] TIVE 4 DISTRICT DISTRICT PILLS FOR HLTH DEPT HLTH DEPT RUTH RUTH CONTROL URINE 31881 [facility] 4 DISTRICT DISTRICT TEST HLTH DEPT HLTH DEPT VISUAL RUTH RUTH COLOR CMPRSN METHS THERAPEUT 32435 [facility]BD[facility] GARDINER IC 4 [facility] PROPHYLAC INC INC TIC/DX INJECTION SUBQ/IM CONTRACEP J7304 [facility] TIVE 4 DISTRICT DISTRICT SUPPLY TH DEPT TH DEPT HORMONE RUTH RUTH CONTAININ G PATCH EA IADNA 53103 [facility] CHLAMYDIA 4 DISTRICT DISTRICT HLTH DEPT TH DEPT TRACHOMAT RUTH RUTH IS AMPLIFIED PROBE TQ CYTP 49403 [facility], PICKLESIM CERV/VAG 4 [facility] ER JR GIDEON AUTO THIN LAYER PREP MNL SCREEN IADNA 02304 [facility] NEISSERIA 4 DISTRICT DISTRICT TH DEPT [facility] DEPT GONORRHOE RUTH RUTH AE AMPLIFIED PROBE TQ LEVEL III 21889 [facility], ESTER SURG 4 [facility] NOAH PATHOLOGY GROSS&VETO ROSCOPIC EXAM LAPS SURG 28151 [facility] TOR ZHOU 4 PHYSICIAN PIETRO CHOLECYST S GROUP ECTOMY W/CHOLANG IOGRAPHY ANES 76765 [facility] ZEENAT THERESA INTRAPERI 4 ANESTH TONEAL OF THE UPPER BLUE ABDOMEN W/LAPS NOS CHOLANGIO 16994 OC VARGAS GRAPHY&/P 4 MEDICAL ERNESTINE ANCREATOG IMAGING [place] ASS NTRAOP RS&[place] [address] [facility] INFUSION 4 [facility] THERAPY INC INC PROPHYLAX IS/DX EA HOUR CHOLANGIO 50942 [facility] GRAPHY&/P 4 [facility] ANCREATOG INC INC MARIAH NTRAOP RS&[place] [address] [facility] LIPASE 4 [facility] INC INC LOCM Q9967 [facility]ATA[facility] 300-399 4 [facility] MG/ML INC INC IODINE CONCENTRA TION PER ML BLOOD 07439 [facility] COUNT 4 [facility] COMPLETE INC INC AUTO&AUTO DIFRNTL WBC COMPREHEN 96585 [facility] SIVE 4 [facility] METABOLIC INC INC PANEL COMPREHEN 21753 [facility] SIVE 4 [facility] METABOLIC INC INC PANEL BLOOD 37668 [facility]ATA[facility] COUNT 4 [facility] COMPLETE INC INC AUTO&[place] [address] A[facility]ATA[facility] AMYLASE 4 [place] [address] ABDIFATAH [facility] LIPASE 4 [facility] INC INC HOSPITAL G0378 A[facility]ATAH G[facility] OBSERVATI 4 [facility] ON INC INC SERVICE PER HOUR HOSPITAL G0378 A[facility]ATA[facility] OBSERVATI 4 [facility] ON INC INC SERVICE PER HOUR INJECTION J1335 [facility]ATA[facility] 4 [facility] ERTAPENEM INC INC SODIUM [address] [place] [address] ABDIFATAH G[facility] LIPASE 4 [facility] INC INC INJECTION J2405 A[facility] ONDANSETR INC INC ON HCL PER [address] [place] [address] ABDIFATAH [facility] AMYLASE 4 [place] [address] [facility]BDIFATAH [facility] INFUSION 4 [facility] THER INC INC PROPH ADDL SEQUENTIA L TO 1 [place] [address] A[facility]IFATAH [facility] INFUSION 4 [facility] THERAPY INC INC PROPHYLAX IS/DX EA HOUR BLOOD 57055 A[facility]IFATAH [facility] COUNT 4 [facility] COMPLETE INC INC AUTO&[place] [address] A[facility]IFATAH [facility] INFUSION 4 [facility] THERAPY/P INC INC ROPHYLAXI S /DX 1ST TO 1 HR THERAPEUT 30582 ABDIFATAH [facility] IC 4 [facility] INJECTION INC INC IV PUSH EACH NEW DRUG COMPREHEN 58565 [facility] G[facility] SIVE 4 [facility] HOSP METABOLIC INC INC PANEL C-REACTIV 69446 ABDIFATAH GARDINER E PROTEIN 4 [facility] INC INC RADIOLOGI 78755 ABDIFATAH GARDINER C EXAM 4 [facility] CHEST 2 INC INC VIEWS FRONTAL&[place] [address] ABDIFATAH GARD[facility]ER ABDOMINAL 4 [facility] REAL INC INC TIME W/IMAGE LIMITED URNLS DIP 44866 ABDIFATAH GARDINER 4 [facility] STICK/TAB INC INC LET REAGENT AUTO MICROSCOP Y URINE 44771 ABDIFATAH GARDINER 4 [facility] HOS[facility] TEST INC INC VISUAL COLOR CMPRSN METHS VAGINAL 32304 [place] DELIVERY 4 MEDICAL SULY ONLY SERV W/POSTPAR FOUNDATIO NICA CARE REPAIR OF 7569 [facility] OTHER 4 N N CURRENT COMMUNTIY COMMUNTIY OBSTETRIC HOSPITA HOSPITA LACERATIO N OTHER 7359 [facility] MANUALLY 4 N N ASSISTED COMMUNTIY COMMUNTIY DELIVERY HOSPITA HOSPITA NEURAXIAL 81685 [place] [facility] ANT LABOR 4 ANESTHESI ANALG/ANE A GROUP S PLND PS VAGINAL DELIVERY CUL 21984 [facility] OF [facility] OF PRSMPTV 4 [place], [place], PTHGNC INC. INC. ORGANISM SCRN W/COLONY ESTIMJ SYPHILIS 02750 [facility] OF TEST 4 [place], NON-TREPO INC. INC. NEMAL ANTIBODY QUAL ANTIBODY 49756 [facility] OF SCREEN 4 [place], RBC EACH INC. INC. SERUM TECHNIQUE BLOOD 52547 [facility] OF COUNT 4 [place], COMPLETE INC. INC. AUTOMATED BLOOD 72995 [facility] QUEST COUNT 3 DIAGNOSTI DIAGNOSTI COMPLETE CS CS AUTOMATED ANTIBODY 61521 [facility] QUEST SCREEN 3 DIAGNOSTI DIAGNOSTI RBC EACH CS CS SERUM TECHNIQUE SYPHILIS 76472 [facility] QUEST TEST 3 DIAGNOSTI DIAGNOSTI NON-TREPO CS CS NEMAL ANTIBODY QUAL COMPREHEN 89382 [facility] QUEST SIVE 3 DIAGNOSTI DIAGNOSTI METABOLIC CS CS PANEL LACTATE 89809 [facility] QUEST DEHYDROGE 3 DIAGNOSTI [place]AGNO[place] [address] QUEST QUEST BLOOD/URI 3 DIAGNOSTI DIAGNOSTI C ACID [place] 53858 [place] O'GREOGR UTERUS 3 MEDICAL DONELL REAL TIME SERV F/U FOUNDATIO TRNSABDL PER FETUS DETERMINA 36830 ESTER NORMAN TION 3 GRE GRE REFRACTIV E STATE OPHTH 04149 ESTER ESTER MEDICAL 3 GRE GRE XM&EVAL COMPRE NEW PT 1/> VST GLUCOSE 19245 [facility] QUEST POST 3 DIAGNOSTI DIAGNOSTI GLUCOSE CS [place]SE [place] PREG 54567 [place] O'GREGOR UTERUS 3 MEDICAL DONELL AFTER 1ST SERV TRIMEST FOUNDATIO GESTATION URNLS DIP 99833 ABDIFATAH [facility] 3 [facility] STICK/TAB INC INC LET REAGENT AUTO MICROSCOP Y CULTURE 35893 ABDIFATAH GARDINER BACTERIAL 3 [facility] INC [place] [address] ESTER GALLAGHER LUIS FERNANDO 3 EMERGENCY UTERUS SERVICES LIMITED 1/> FETUSES Encounters Encounter Start End Date Code Location Performer Type Date [facility] [place] [address] 7 N INPATIENT COMMUNTIY HOSPITA OFFICE 24656 BAILEY HIGUERA OUTPATIEN 7 7 MEDICAL T VISIT SERV 15 FOUNDATIO MINUTES N [facility] 7 7 [facility]PATI[facility] 7 7 [facility]ALTHCAR OUTPATIEN E T HOSPITALS EMERGENCY 17147 [facility] 7 7 MILLIE DEPARTMEN EMERGENCY T VISIT SERVI MODERATE SEVERITY EMERGENCY 68373 [facility] DEPT 7 7 PHYSICIAN VISIT S, PLLC HIGH SEVERITY& THREAT FUNCJ EMERGENCY 21926 ABDIFATAH 7 7 [facility] INC T VISIT HIGH/URGE NT SEVERITY HOSPITAL ABDIFATAH - 7 7 [facility] 7 7 [facility] 26773 [facility] 6 [facility] T VISIT HL DEPT [facility] 6 6 N [facility] T HOSPITA EMERGENCY 18347 [facility] 6 6 [facility] EMERGENCY PAT T VISIT PHYS HIGH/URGE NT SEVERITY OFFICE 64016 BAILEY HIGUERA OUTPATIEN 6 6 MEDICAL SULY T VISIT SERV 15 FOUNDATIO MINUTES [facility] UNIVERSIT - 6 6 Y [facility] T OFFICE 74420 SHAYLA MCGUIRE [facility] 6 6 RAJIV RAJIV T VISIT 15 MINUTES HOSPITAL ABDIFATAH - 6 6 [facility] 34746 CARLOS HENRIQUEZ 6 6 PHYSICIAN U SARAH [facility] T VISIT MODERATE SEVERITY EMERGENCY 62233 ABDIFATAH 6 6 [facility] INC T VISIT LIMITED/M INOR PROB OFFICE 97838 SHAYLA MCGUIRE [facility] 6 6 RAJIV RAJIV T VISIT 15 MINUTES OFFICE 02964 [facility] CONS[facility]AT 6 6 MSO, [facility] ION NEW/ESTAB PATIENT 40 MIN OFFICE 74698 BAILEY HIGUERA OUTPATIEN 6 6 MEDICAL SULY T VISIT SERV 15 FOUNDATIO MINUTES N OFFICE 00710 [facility] SCOTT OUTPATIEN 6 6 PHYSICIAN HUSSEIN T NEW 30 S GROUP MINUTES OFFICE 71001 LUISALBERT LUISALBERT OUTPATIEN 6 6 RAJIV RAJIV T VISIT 15 MINUTES OFFICE 55591 [facility]AI[facility] HIGUERA OUTPATIEN 6 6 MEDICAL SULY T VISIT SERV 15 FOUNDATIO MINUTES HOSPITAL ABDIFATAH - 6 6 [facility] OUTPATIEN INC T EMERGENCY [address] [facility] [address] [facility] T VISIT HIGH/URGE NT SEVERITY OFFICE 27398 SHAYLA MCGUIRE OUTPATIEN 6 6 RAJIV RAJIV T VISIT 15 MINUTES OFFICE 51451 [facility] OUTPATI[facility] 5 5 [facility] T NEW 45 SURGICAL MINUTES [facility] 5 5 N OUTPATIEN COMMUNTIY T HOSPITA PERIODIC 41248 BAILEY HIGUERA PREVENTIV 5 5 MEDICAL SULY E MED EST SERV PATIENT FOUNDATIO 18-39 YRS N OFFICE 98920 [facility] T VISIT HLTH DEPT TH DEPT 15 [place] MINUTES OFFICE 96474 SHAYLA MCGUIRE OUTPATIEN 5 5 RAJIV RAJIV T VISIT 15 MINUTES OFFICE 29378 SHAYLA MCGUIRE OUTPATIEN 5 5 RAJIV RAJIV T VISIT 15 MINUTES HOSPITAL ABDIFATAH - 5 5 [facility] OUTPATIEN INC T EMERGENCY 99499 ABDIFATAH 5 5 [facility] INC T VISIT MODERATE SEVERITY EMERGENCY 45524 ABDIFATAH WONG 5 5 [facility] T VISIT P LOW/MODER SEVERITY OFFICE 75275 VICKI PATRICK OUTPATIEN 4 4 FOOT & T NEW 30 ANKLE CE MINUTES HOSPITAL ABDIFATAH - 4 4 [facility] OUTPATIEN INC T OFFICE 03804 LUISALBERT SMITHALBERT OUTPATIEN 4 4 RAJIV RAJIV T VISIT 15 MINUTES OFFICE 60340 [facility]AI[facility] HIGUERA OUTPATIEN 4 4 MEDICAL SULY T VISIT SERV 15 FOUNDATIO MINUTES N OFFICE 88117 SONIA SCOTT OUTPATIEN 4 4 HUSSEIN HUSSEIN T VISIT 15 MINUTES EMERGENCY 18208 [facility] 4 4 [facility] DEPARTMEN T VISIT HIGH/URGE NT SEVERITY HOSPITAL ABDIFATAH - 4 4 [facility] OUTPATIEN INC T OFFICE 20787 [facility] 4 4 [facility] T VISIT [facility] DEPT [facility] DEPT 15 [place] MINUTES OFFICE 47106 [facility] OUT[facility] 4 4 [facility] T VISIT TH DEPT [facility] DEPT 10 [place] MINUTES OFFICE 50986 LUISALBERT SHAYLA OUTPATIEN 4 4 RAJIV RAJIV T VISIT 15 MINUTES OFFICE 15964 [facility] SCOTT OUTPATIEN 4 4 HUSSEIN HUSSEIN T NEW 30 MINUTES EMERGENCY 01272 ALFARIS ALFARIS 4 4 [facility] DEPARTMEN T VISIT HIGH/URGE NT SEVERITY HOSPITAL ABDIFATAH - 4 4 [facility] OUTPATIEN INC T PERIODIC 83399 [facility] PREVENTIV 4 4 [facility] E MED EST TH DEPT [facility] DEPT PATIENT [place] 18-39 YRS HOSPITAL ABDIFATAH - 4 4 [facility] OUTPATIEN INC T HOSPITAL ABDIFATAH - 4 4 [facility] OUTPATIEN INC T OFFICE 80951 [facility] TOR ZHOU CONSULTAT 4 4 PHYSICIAN PIETRO OLIVEIRA NEW/ESTAB PATIENT 60 MIN HOSPITAL ABDIFATAH - 4 4 [facility] OUTPATIEN INC T EMERGENCY 54403 ABDIFATAH DEPT 4 4 [facility] VISIT INC HIGH SEVERITY& THREAT FUNCJ OFFICE 65963 [facility] JUDITH OUTPATIEN 4 4 PHYSICIAN VETO T NEW 20 S GROUP [facility] [place] [address] 4 N INPATIENT COMMUNTIY HOSPITA OFFICE 91963 BAILEY VANNPATIEN 4 4 MEDICAL SULY T VISIT SERV 15 FOUNDATIO MINUTES OFFICE 13318 BAILEY HIGUERA OUTPATIEN 4 4 MEDICAL SULY T VISIT SERV 15 FOUNDATIO MINUTES OFFICE 91694 [facility]AI[facility] HIGUERA OUTPATIEN 3 3 MEDICAL SULY T VISIT SERV 15 FOUNDATIO MINUTES Emergency FERNANDA Gallagher MD (ER) 3 16:00 3 16:31 [facility] EMERGENCY 89158 ESTER [facility] DEPT 3 3 EMERGENCY VISIT SERVICES HIGH SEVERITY& THREAT FUNCJ EMERGENCY 21169 ABDIFATAH 3 3 [facility] DEPARTMEN INC T VISIT LOW/MODER SEVERITY HOSPITAL ABDIFATAH - 3 3 [facility] OUTPATIEN INC T
--- OUTSIDE RECORDS SUMMARY | 2017-03-24 18:16 | External Medical Summary Rpt | CCD ---
Author Author , YASMEEN Organization YASMEEN Address Unknown Phone [email or web address] Care Team Providers Care Model Making Supervisor Name Role Phone ALFARIS MOH, ALFARIS Unavailable Unavailable MOH ALLRAN JR PIETRO, ALLRAN Unavailable Unavailable JR PIETRO ARNOLD RAJIV, ARNOLD Unavailable Unavailable RAJIV ARNOLD RAJIV, ARNOLD Unavailable Unavailable RAJIV HAIR, HAIR Unavailable Unavailable HAIR, HAIR Unavailable Unavailable BEINEKE SARAH, BEINEKE Unavailable Unavailable SARAH LUJAN DONELL, LUJAN Unavailable Unavailable DONELL LUJANJAYASHREE MARLEY, LUJAN Unavailable Unavailable DNOELL BESSON TERE, BESSON Unavailable Unavailable TERE ADKINS ALL, ADKINS ALL Unavailable Unavailable CELLAROSI - YORBA Unavailable Unavailable PAT, CELLAROSI - YORBA PAT [facility] Unavailable Unavailable LA, [facility] Unavailable Unavailable [facility], [facility] Unavailable Unavailable [facility] SAM ERNESTINE, Unavailable Unavailable SAM ERNESTINE MILY SARAH, MILY SARAH Unavailable Unavailable FINE BRA, FINE BRA Unavailable Unavailable JUDITH, JUDITH Unavailable Unavailable JUDITH VETO, JUDITH Unavailable Unavailable VETO JUDITH VETO, JUDITH Unavailable Unavailable VETO [facility], [facility] CASIE RHO, CASIE Unavailable Unavailable RHO BURROUGHS FERMÍN, BURROUGHS Unavailable Unavailable FERMÍN [facility] Unavailable Unavailable INC, [facility] Unavailable Unavailable HOSPITAL P, [facility] P HIGUERA, HIGUERA Unavailable Unavailable HIGUERA SULY, HIGUERA Unavailable Unavailable SULY CARPENTER, CARPENTER Unavailable Unavailable CARPENTER, CARPENTER Unavailable Unavailable [facility], Unavailable Unavailable [facility] PIERCE, PIERCE Unavailable Unavailable [facility] Unavailable Unavailable GROUP PS, [facility] Un[facility] Unavailable [facility], [facility], Unavailable Unavailable [facility] Un[facility] Un[facility], [facility] Un[facility], [facility] [employer] Unavailable Unavailable [facility] [employer] [facility] [employer] Unavailable Unavailable [facility] [employer] SCOTT HUSSEIN, SCOTT Unavailable Unavailable HUSSEIN SCOTT HUSSEIN, SCOTT Unavailable Unavailable HUSSEIN [facility] Un[facility] Unavailable [facility], [facility] KASEY ANT, KASEY ANT Unavailable Unavailable ESTER NOAH, Unavailable Unavailable ESTER NOAH ESTER GRE, Unavailable Unavailable ESTER GRE ESTER GRE, Unavailable Unavailable ESTER GRE [facility] Unavailable Unavailable SERVICES, [facility] O'GREGOR, O'GREGOR Unavailable Unavailable O'GRGEOR DONELL, O'GREGOR Unavailable Unavailable DONELL [facility], [...] Unavailable SOTINGEANU SARAH, Unavailable Unavailable SOTINGEANU SARAH [facility] Unavailable Unavailable EMERGENCY PHYS, [facility] Unavailable Unavailable EMERGENCY SERVI, [facility] TALAMANTES RAY TALAMANTES Unavailable Unavailable CAIN PALACIO Unavailable Unavailable HANNY CHARITY, HANNY Unavailable Unavailable CHARITY [facility] Unavailable Unavailable HOSPITALS, [facility], Unavailable Unavailable [facility] Unavailable Unavailable DEPT [facility] DEPT [facility] Unavailable Unavailable DEPT [facility] ELLIOTT BRAUN Unavailable Unavailable Purpose Continuity of Care Document - 12-15-2012 through 2016 Problems Code Diagnosis DOS Provider Status E039 HYPOTHYROID 01-26-2017 [facility] UNSPECIFIED [facility] E6601 MORBID 01-26-2017 [facility] OBESITY DUE HOSPITA TO EXCESS CALORIES O701 SECOND 01-26-2017 [facility] PERINEAL HOSPITA LACERATION DUR DELIVERY O76 ABNORMALITY 01-26-2017 [facility] IN [facility] HRT RATE HOSPITA RHYTHM COMP L & D O80 ENCOUNTER 01-26-2017 [place] FOR ANESTHESIA FULL-TERM GROUP PS UNCOMPLICAT ED DELIVERY R03398 OBESITY 01-26-2017 [place] [facility] COMPLICAT[facility] G [facility] CHILDBIRTH L19764 ENDOCRINE 01-26-2017 [place] [facility] N[facility]ITION [facility] SERV METAB [facility] COMP CHILDBIRTH T75665 SMOKING 01-26-2017 [place] [facility] TOBACCO SERV COMPLICATIN FOUNDATION G CHILDBIRTH Z370 SINGLE LIVE 01-26-2017 [facility] Z382 SINGLE 01-26-2017 [facility] LIVEBORN NERI STOUT UNS TO PLACE OF Z6841 BODY MASS 01-26-2017 [facility] INDEX BMI COMMUNTIY 40.0-44.9 HOSPITA ADULT E663 OVERWEIGHT 01-06-2017 [facility] S20387 OBESITY 01-06-2017 [place] [facility] THIRD TRIMESTER R48392 ENDOCRINE 01-06-2017 [facility] N[facility]ITION [facility] METAB DZ [facility] COMP PREG 3RD TRI K81768 OTH MENTAL 01-06-2017 [facility] DISORDER [facility] COMP [facility] 3RD TRIMESTER Z23 ENCOUNTER 01-06-2017 [facility] FOR [facility] IMMUNIZATIO FOUNDATION N Z3483 ENC 01-06-2017 [facility] NORMAL HOSPITALS 3 TRIMESTER Z36 ENCOUNTER 01-06-2017 [facility]ALS SCREENING OF MOTHER Z3A36 36 WEEKS 01-06-2017 [facility] Z6842 BODY MASS 01-06-2017 [place] [facility] IN[facility] BMI SERV 45.0-49.9 FOUNDATION ADULT E669 OBESITY 12-01-2016 [place] [facility] UNSPECIFIED SERV [facility] Z3A31 31 WEEKS 12-01-2016 [place] [facility] GEST[facility] SERV OF [facility] H6692 OTITIS 11-27-2016 [facility] UNSPECIFIED SERVI LEFT EAR J069 ACUTE UPPER 11-27-2016 [facility] N [facility] RESPIRATORY SERVI INFECTION UNSPECIFIED E05583 DISEASES 11-27-2016 [facility] N EMERGENCY SYS COMP SERVI 3RD TRI Z3A30 30 WEEKS 11-27-2016 [facility] N EMERGENCY OF SERVI K529 NONINFECTIV 11-10-2016 [facility] E PHYSICIANS, GASTROENTER PLLC ITIS & COLITIS UNS K9289 OTHER 11-10-2016 [facility] SPECIFIED [facility] DISEASES OF INC THE DIGESTIVE SYSTEM H27944 DISEASES 11-10-2016 [facility] DIGESTIVE PHYSICIANS, SYSTEM COMP PLLC 2ND TRI U15775 DISEASES 11-10-2016 [facility] DIGESTIVE [facility] SYSTEM COMP INC 3RD TRI Z3A28 28 WEEKS 11-10-2016 [facility] GESTATION PHYSICIANS, OF PLLC K589 IRRITABLE 10-29-2016 [facility] WITHOUT DIARRHEA O2342 UNS INF 10-29-2016 [facility] SECOND TRIMESTER Z12132 ENDOCRINE 10-29-2016 [facility] METAB [facility]OSPITALS COMP PREG 2ND TRI Z3A26 26 WEEKS 10-29-2016 [facility] O2692 10-27-2016 [facility] RELATED [facility] CONDITIONS INC UNS 2ND TRIMESTER R109 UNSPECIFIED 10-27-2016 [facility] ABDOMINAL [facility] PAIN INC 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 H5213 MYOPIA 10-14-2016 HAIR BILATERAL Y88940 OBESITY 09-20-2016 [place] [facility] COMPLICATIN SERV G [facility]OUNDATION SECOND TRIMESTER Z3A20 20 WEEKS 09-20-2016 [place] [facility] GE[facility]ATION SERV OF FOUNDATION Z3189 ENCOUNTER 06-10-2016 [facility] FOR OTHER DISTRICT PROCREATIVE [facility] DEPT MANAGEMENT RUTH Z3201 ENCOUNTER 06-10-2016 [facility] FOR DISTRICT HLTH DEPT TEST RESULT RUTH POSITIVE H538 OTHER 04-08-2016 [facility] VISUAL COMM[facility]TIY DISTURBANCE HOSPITA S H539 UNSPECIFIED 04-08-2016 [facility] VISUAL N EMERGENCY DISTURBANCE PHYS R110 NAUSEA 04-08-2016 [facility] R51 HEADACHE 04-08-2016 [facility] Z720 TOBACCO USE 04-08-2016 [facility]ITA N921 EXCESS & 03-18-2016 [facility] MENSTRUATIO N W/IRREGULAR CYCLE F15449 OTHER LONG 03-18-2016 [facility] CURRENT DRUG THERAPY Y30908 PAIN IN 03-05-2016 ARNALBERT RAJIV UNSPECIFIED FOOT M722 PLANTAR 01-21-2016 [facility] FASCIAL PHYSICIANS, FIBROMATOSI PLL S W97685 PAIN IN 01-21-2016 [place] LEFT FOOT MEDICAL IMAGING ASS I74163 OTHER 01-16-2016 ARNALBERT RAJIV MIGRAINE INTRACT W/O STATUS MIGRAINOSUS D649 ANEMIA 12-19-2015 COMBINED UNSPECIFIED PHYSICIANS LA E119 TYPE 2 12-19-2015 [facility] DIABETES PHYSICIANS MELLITUS LA WITHOUT COMPLICATIO NS E785 HYPERLIPIDE 12-19-2015 [facility]ED CONSTANTIN PHYSICIANS UNSPECIFIED LA I10 ESSENTIAL 12-19-2015 [facility] PRIMARY PHYSICIANS HYPERTENSIO LA N N63 UNSPECIFIED 11-25-2015 [facility] BREAST N644 MASTODYNIA 11-25-2015 [facility] [facility] R590 LOCALIZED 11-25-2015 [facility] ENLARGED [facility] LYMPH NODES B379 CANDIDIASIS 11-18-2015 [facility] UNSPECIFIED [facility] N6009 SOLITARY 11-18-2015 [place] [facility] CYST OF SERV UNSPECIFIED FOUNDATION BREAST Z0100 ENCOUNTER 09-20-2015 ESTER EXAM EYES & GRE VISION W/O ABNORMAL FIND J0100 ACUTE 09-11-2015 [facility] MAXILLARY PHYSICIANS SINUSITIS GROUP UNSPECIFIED J320 CHRONIC 09-11-2015 [facility] MAXILLARY PHYSICIANS SINUSITIS GROUP M2662 ARTHRALGIA 09-01-2015 ARNOLD RAJIV OF TEMPOROMAND IBULAR JOINT R102 PELVIC AND 08-13-2015 [place] [facility] PERINEAL SERV PAIN [facility]OUNDATION C50016 PAIN IN 07-16-2015 [place] RIGHT WRIST MEDICAL IMAGING ASS M6740 GANGLION 07-16-2015 [facility] UNSPECIFIED [facility] SITE INC K219 GASTRO-ESOP 07-12-2015 LE MARLEY H REFLUX DISEASE WITHOUT ESOPHAGITIS 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 R0789 OTHER CHEST 07-12-2015 LE DONELL PAIN R079 CHEST PAIN 07-09-2015 ARNOLD RAJIV UNSPECIFIED N56375 ENCOUNTER 05-22-2015 [facility] 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 EXAM LLC GENERAL RTN W/O ABNORMAL FIND 1121 CANDIDIASIS 01-28-2015 [facility] OF VULVA DISTRICT AND VAGINA [facility] DEPT RUTH 6101 DIFFUSE 01-28-2015 [facility] CYSTIC DISTRICT MASTOPATHY [facility] DEPT RUTH 40180 SPASM OF 12-13-2014 ARNOLD RAJIV MUSCLE 2724 OTHER AND 08-21-2014 COMBINED UNSPECIFIED PHYSICIANS LA HYPERLIPIDE CONSTANTIN 4659 ACUTE URIS 08-21-2014 ARNOLD RAJIV OF UNSPECIFIED SITE 58977 FEVER 08-21-2014 [place] [address] OTHER 08-21-2014 COMBINED MALAISE AND PHYSICIANS FATIGUE LA 7295 PAIN IN 06-19-2014 [place] SOFT MEDICAL TISSUES OF IMAGING ASS LIMB 52848 CALCANEAL 05-13-2014 [place] [address] OTHER 05-13-2014 [place] ENTHESOPATH FOOT & Y OF ANKLE ANKLE CE AND TARSUS 17314 PAIN IN 05-06-2014 [facility] JOINT, [facility]OS[facility] ANKLE AND INC FOOT V2501 GENERAL 04-23-2014 [facility] COUNSELING [facility] PRESCRIPTIO FOUNDATION N ORAL CONTRACEPTS V7241 04-23-2014 [place] [facility] EXAMINATION SERV OR TEST FOUNDATION NEGATIVE RESULT 32622 UNSPECIFIED 03-28-2014 SCOTT HUSSEIN ACUTE NONSUPPURAT SOPHIA OTITIS MEDIA 05654 OTHER ACUTE 03-27-2014 JUDITH VETO POSTOPERATI VE PAIN 7841 THROAT PAIN 03-27-2014 [facility] VETO 68261 OBSTRUCTIVE 03-21-2014 [facility] P 463 ACUTE 03-21-2014 [facility] TONSILLITIS LLC 53921 CHRONIC 03-21-2014 SONIA SAVAGE TONSILLITIS 25543 HYPERTROPHY 03-21-2014 [facility], OF TONSILS LLC ALONE V2541 SURVEILLANC 03-19-2014 [facility] E PREV DISTRICT PRESCRIBED [facility] DEPT CONTRACEPT RUTH PILL V2689 OTHER 03-19-2014 [facility] SPECIFIED DISTRICT PROCREATIVE [facility] DEPT MANAGEMENT RUTH 462 ACUTE 03-05-2014 SHAYLA VANCE PHARYNGITIS 6929 CONTACT 03-05-2014 SHAYLA VANCE DERMATITIS& OTHER ECZEMA DUE UNSPEC CAUSE V2503 ENCOUNTER 03-05-2014 [facility] EMERGENCY DISTRICT CONTRACEPT [facility] DEPT CNSL&PRESCR RUTH IPTION 2893 LYMPHADENIT 02-28-2014 SONIA SAVAGE IS UNSPECIFIED EXCEPT MESENTERIC 5282 ORAL 02-16-2014 [facility] APHTHAE [facility] INC V2549 SURVEILLANC 12-25-2013 [facility] E OTH PREV DISTRICT PRSC HLTH DEPT CONTRACEPT RUTH METHOD V7231 ROUTINE 12-25-2013 [facility], GYNECOLOGIC LLC AL EXAMINATION 15934 CALCU 09-17-2013 [facility], GALLBLADD LLC W/OTH CHOLECYST W/O MENTION OBST 04867 CALCU 09-17-2013 [facility] GALLBLADD PHYSICIANS W/O MENTION GROUP CHOLECYST/O BST 41486 CHOLECYSTIT 09-17-2013 COMMUNITY IS, ANESTH OF UNSPECIFIED THE BLUE 5770 ACUTE 09-17-2013 [facility] PANCREATITI PHYSICIANS S GROUP V4579 OTHER 09-17-2013 [place] ACQUIRED MEDICAL ABSENCE OF IMAGING ASS ORGAN 5758 OTHER 09-12-2013 [facility] SPECIFIED [facility] DISORDER OF INC GALLBLADDER 61047 MORBID 09-06-2013 [facility] OBESITY [facility] INC 80324 CALCU BD 09-06-2013 [facility] W/ACUT [facility] CHOLECYST INC W/O MENTION OBST V8541 BODY MASS 09-06-2013 [facility] INDEX [facility] 40.0-44.9 INC ADULT 45939 ABDOMINAL 09-01-2013 [facility] PAIN RIGHT PHYSICIANS UPPER GROUP QUADRANT 82639 BENIGN 07-09-2013 [facility] ESSENTIAL COMMUNTIY HYPERTENSIO HOSPITA N WITH DELIVERY 80601 IVETTE 07-09-2013 [place] [facility] ESSENTIAL SERV HYPERTENSIO FOUNDATIO N W/DELIV W/CURRENT PPC 64420 OBESITY 07-09-2013 [place] [facility] COMP PG SERV CHILDBIRTH/ FOUNDATIO THE PP DEL W/PP COMP 650 NORMAL 07-09-2013 [place] [address] SECOND-DEGR 07-09-2013 [facility] PERINEAL COMMUNTIY LACERATION HOSPITA WITH DELIVERY V270 OUTCOME OF 07-09-2013 [place] [facility] DELIVERY SERV SINGLE FOUNDATIO LIVEBORN 72776 OBESITY, 07-06-2013 [place] [facility] UNSPECIFIED SERV FOUNDATIO 4019 UNSPECIFIED 07-06-2013 [place] [facility] ESSENTIAL SERV HYPERTENSIO FOUNDATIO N 56118 UNSPECIFIED 07-06-2013 [facility] HYPERTENSIO FOUNDATIO N ANTEPARTUM V239 UNSPECIFIED 07-06-2013 [place] [facility] HIGH-RISK SERV FOUNDATIO V2389 SUPERVISION 06-29-2013 [facility] OF OF [facility]. HIGH-RISK 97416 UTERINE 05-23-2013 [place] [facility] SIZE DATE SERV DISCREPANCY FOUNDATIO ANTPRTM COND/COMPL V720 EXAMINATION 05-17-2013 ESTER OF EYES GRE AND VISION V221 SUPERVISION 03-30-2013 [facility] OF OTHER DIAGNOSTICS NORMAL 34102 UNS 02-28-2013 [place] [facility] &PLACN SERV TL PROB FOUNDATIO AFFCT MGMT MOTH ANTPRTM V2881 ENCOUNTER 02-28-2013 [facility] FOR SERV ANATOMIC FOUNDATIO SURVEY 5990 URINARY 12-15-2012 [facility] TRACT [facility] INFECTION INC SITE NOT SPECIFIED 76258 INFECTIONS 12-15-2012 [facility] EMERGENCY GENITOURINA SERVICES RY TRACT ANTEPARTUM 23972 OTHER 12-15-2012 [facility] SPECIFED [facility] COMPLICATIO INC N ANTEPARTUM Medications Na ND Rx Da Fi Fi [...] NT ET HI AN A IN C OK 39 09 09 30 30 00 EA [...] HI UL AN E A IN C OK 39 08 08 30 30 00 EA [...] NT ET HI AN A IN C OK 39 07 07 30 30 00 EA [...] ET AN A IN C LE 00 03 03 30 30 00 [...] MG #5 91 CA PS UL E ON 68 12 01 10 3 00 EA Ac DA 46 -2 -[address] ti NS 20 1- 3- 00 00 SI ve ET 15 20 20 46 DE RO 81 16 17 96 N 3 89 PH OD AR T MA 8 CY MG OF TA CY BL NT ET HI AN A IN C Immunization Name Date Rout CVX Reac Dose Comm Prov Is Faci e tion ent ider Refu lity Give sed n TDAP 12-12 115 HAYN No [place] 7-20 ES MEDI VACC 17 KAROLYN INE SERV 7 YRS/ FOUN > IM DATI ON Procedures Procedure DOS Code Location Performer Comment [facility] [address] [facility] DISCHARGE 7 [facility], [employer] DAY MANAGEMEN T 30 MIN/< DRAINAGE 39602ZX [facility] AMNIOTIC 7 N N FLUID COMMUNTIY COMMUNTIY THERAPEUT HOSPITA HOSPITA POC SAI/ART OP DELIVERY [id number] [facility] PRODUCTS 7 N N OF COMMUNTIY COMMUNTIY CONCEPTIO HOSPITA HOSPITA N EXTERNAL REPAIR [id number] [facility] PERINEUM 7 N N MUSCLE COMMUNTIY COMMUNTIY OPEN HOSPITA HOSPITA APPROACH NEURAXIAL 22174 [place] DAVIS LABOR 7 ANESTHESI ANALG/ANE A GROUP S PLND PS VAGINAL DELIVERY 1ST 68213 [facility] HOSP/NIMO 7 Mikro Odeme | 3payO, InnaVir[facility]ax [facility] CARE PER DAY NML NB VAGINAL 49672 [facility] HIGUERA DELIVERY 7 MEDICAL ONLY SERV FOUNDATIO N IADNA 65751 [facility] STREPTOCO 7 HEALTHCAR HEALTHCAR CCUS E E GROUP B LDS HOSPITAL HOSPITALS AMPLIFIED PROBE TQ IM ADM 78341 [facility] HIGUERA PRQ ID 7 MEDICAL SUBQ/IM SERV NJXS 1 FOUNDATIO VACCINE N TDAP 54596 [facility] HIGUERA VACCINE 7 7 MEDICAL YRS/> IM SERV FOUNDATIO N BLOOD 54001 [facility] COUNT 7 HEALTHCAR HEALTHCAR COMPLETE E E [place]OM[place] [address] [facility] THYROID 7 HEALTHCAR HEALTHCAR STIMULATI E E NG [facility] HORMONE TSH US PREG 05260 BAI[facility] O'GREGOR UTERUS 7 MEDICAL REAL TIME SERV F/U FOUNDATIO TRNSABDL N PER FETUS CULTURE 88300 [facility] GARDINER BACTERIAL 7 MEM HOSP MEM HOS[facility] INC INC QUANTTATI VE COLONY COUNT URINE URNLS DIP 11212 [facility] GARDINER 7 MEM HOSP MEM HOSP STICK/TAB INC [place] [address] [facility] GARD[facility]ER INFUSION 7 MEM HOSP [facility] HOS[facility] THERAPY/P INC INC ROPHYLAXI S /DX 1ST TO 1 HR THERAPEUT 60362 [facility] GARDINER IC 7 MEM HOSP MEM HOSP INJECTION INC INC IV PUSH EACH NEW DRUG COMPREHEN 22719 [facility] GARDINER SIVE 7 MEM HOSP MEM HOSP METABOLIC INC INC PANEL BLOOD 66942 [facility] GARDINER COUNT 7 MEM HOSP MEM HOSP COMPLETE INC INC AUTO&AUTO DIFRNTL WBC GLUCOSE 39085 [facility] POST 7 HEALTHCAR HEALTHCAR GLUCOSE E E DOSE [facility] 86259 [facility] GARDINER NONSTRESS 7 MEM HOSP MEM HOSP TEST INC INC DRUG TEST 26882 [facility] GARDINER PRSMV 7 MEM HOSP MEM HOSP QUAL DIR INC INC OPTICAL OBS PER DAY CULTURE 73722 [facility] GARDINER BACTERIAL 7 MEM HOSP MEM HOSP INC INC QUANTTATI VE COLONY COUNT URINE FITTING 02658 JAYDEN CARPENTER SPECTACLE 7 S XCPT APHAKIA MONOFOCAL FRAMES V2020 LXAMI HAIR PURCHASES 7 1 VISN V2103 LAXMI HAIR PLANO 7 TO+/-4.00 D SPHER 0.12-2.00 D CYL [place] PREG 14040 [facility] O'GREGOR UTERUS 7 MEDICAL AFTER 1ST SERV TRIMEST FOUNDATIO / N GESTATION URINE 55648 [facility] 6 DISTRICT DISTRICT TEST HLTH DEPT HLTH DEPT VISUAL [place] [address] [facility] BAILEY TALAMANTES HEAD/BRAI 6 RADIOLOGY RAY [place] [address] [facility] THYROID 6 Y Y STIMULATI [facility] NG HORMONE TSH URINE 55107 BAILEY HIGUERA 6 MEDICAL SULY TEST SERV VISUAL FOUNDATIO COLOR N CMPRSN METHS BLOOD 39572 [facility] COUNT 6 Y Y COMPLETE [facility] AUTOMATED RADEX 47744 [place] ADKINS ALL FOOT 6 MEDICAL COMPLETE IMAGING MINIMUM 3 ASS VIEWS 25 26263 COMBINED COMBINED HYDROXY 6 PHYSICIAN PHYSICIAN INCLUDES [place] [address] COMBINED COMBINED FREE 6 PHYSICIAN PHYSIC[place] [address] COMBINED COMBINED THYROID 6 PHYSICIAN PHYSICIAN STIMULATI S LA S LA NG HORMONE TSH SEDIMENTA 99336 COMBINED COMBINED TION RATE 6 PHYSICIAN PHYSICIAN [place] [address] COMBINED COMBINED TRIIODOTH 6 PHYSICIAN PHYSICIAN YRONINE S LA S LA T3 TOTAL TT3 BLOOD 10908 COMBINED COMBINED COUNT 6 PHYSICIAN PHYSICIAN COMPLETE S LA S LA AUTO&AUTO DIFRNTL WBC HEMOGLOBI 68923 COMBINED COMBINED N 6 PHYSICIAN PHYSICIAN GLYCOSYLA S LA S LA MARVA A1C COMPREHEN 57677 COMBINED COMBINED SIVE 6 PHYSICIAN PHYSICIAN METABOLIC S LA S LA PANEL LIPID 68371 COMBINED COMBINED PANEL 6 PHYSICIAN PHYSICIAN S LA S LA OPHTH 64031 [facility] 6 GRE GRE XM&EVAL COMPRHNSV ESTAB PT 1/> URINE 25492 BAILEY AVALOS 6 MEDICAL MEDICAL TEST SERV SERV VISUAL FOUNDATIO FOUNDATIO COLOR N N CMPRSN METHS RADEX 21655 [place] BEINEKE WRIST 6 MEDICAL SARAH COMPLETE IMAGING MINIMUM 3 ASS VIEWS ECG 42868 LE LUJAN ROUTINE 6 [facility] ECG W/LEAST 12 LDS I&R ONLY US BREAST 30808 [facility] [place] CASIE UNI REAL 5 RADIOLOGY RHO TIME WITH IMAGE LIMITED CYTP C/V 89977 [facility] AUTO THIN 5 LLC LLC [place] [address] COMBINED COMBINED FREE 5 PHYSICIAN PHYSIC[place] [address] COMBINED COMBINED TRIIODOTH 5 PHYSICIAN PHYSICIAN YRONINE S LA S LA T3 TOTAL TT3 SEDIMENTA 83025 COMBINED COMBINED TION RATE 5 PHYSICIAN PHYSICIAN RBC S LA S LA NON-AUTOM ATED LIPID 28848 COMBINED COMBINED PANEL 5 PHYSICIAN PHYSICIAN S LA S LA GENERAL 16575 COMBINED COMBINED HEALTH 5 PHYSICIAN PHYSICIAN PANEL S LA S LA CUL BACT 99975 COMBINED COMBINED XCPT 5 PHYSICIAN PHYSICIAN URINE S LA S LA BLOOD/STO OL AEROBIC ISOL DUP-SCAN 95574 [place] SAM XTR VEINS 5 MEDICAL ERNESTINE IMAGING UNILATERA ASS L/LIMITED STUDY RADEX 98798 [facility] GARDINER FOOT 4 MEM HOSP MEM HOSP COMPLETE INC INC MINIMUM 3 VIEWS URINE 59885 [place] HIGUERA 4 MEDICAL SULY TEST SERV VISUAL FOUNDATIO COLOR N CMPRSN METHS URINE 80227 [facility] GARDINER 4 MEM HOSP MEM HOSP TEST INC INC VISUAL COLOR CMPRSN METHS TONSILLEC 28691 SONIA SCOTT SYED 4 HUSSEIN HUSSEIN PRIMARY/S ECONDARY AGE 12/> ECG 89179 [facility] CROCKETT ROUTINE 4 [facility] W/LEAST P 12 LDS I&R ONLY BLOOD 89440 [facility] GARDINER COUNT 4 MEM HOSP MEM HOSP COMPLETE INC INC AUTO&AUTO DIFRNTL WBC LEVEL III 06600 [facility], SURG 4 LLC LLC PATHOLOGY GROSS&VETO ROSCOPIC EXAM ANESTHESI 33166 COMMUNITY HANNY A 4 ANESTH CHARITY INTRAORAL OF THE WITH BLUE BIOPSY NOS CONTRACEP S4993 [facility] TIVE 4 DISTRICT DISTRICT PILLS FOR HLTH DEPT HLTH DEPT RUTH RUTH CONTROL URINE 91550 [facility] 4 DISTRICT DISTRICT TEST HLTH DEPT HLTH DEPT VISUAL RUTH RUTH COLOR CMPRSN METHS THERAPEUT 43671 [facility] GARDINER IC 4 MEM HOSP MEM HOSP PROPHYLAC INC INC TIC/DX INJECTION SUBQ/IM CONTRACEP J7304 [facility] TIVE 4 DISTRICT DISTRICT SUPPLY [facility] DEPT [facility] DEPT HORMONE RUTH RUTH CONTAININ G PATCH EA CYTP 74912 [facility], PICKLESIM CERV/VAG 4 LLC ER JR GIDEON AUTO THIN LAYER PREP MNL SCREEN IADNA 33288 [facility] CHLAM[facility] DEPT [facility] DEPT TRACHOMAT RUTH RUTH IS AMPLIFIED PROBE TQ IADNA 30698 [facility] DEPT [facility] DEPT GONORRHOE RUTH RUTH AE AMPLIFIED PROBE TQ ANES 55368 [facility] ZEENAT THERESA INTRAPERI 4 ANESTH TONEAL OF THE UPPER BLUE [place] [address] ABDIFATAH [facility] INFUSION 4 [facility] THERAPY INC INC PROPHYLAX IS/DX EA HOUR CHOLANGIO 87950 OC VARGAS GRAPHY&/P 4 MEDICAL ERNESTINE ANCREATOG IMAGING MARIAH ASS NTRAOP RS&I LEVEL III 97856 [facility], ESTER SURG 4 [facility] NOAH PATHOLOGY GROSS&VETO ROSCOPIC EXAM LAPS SURG 35608 [facility] TOR ZHOU 4 PHYSICIAN PI[facility] ECTOMY W/CHOLANG IOGRAPHY CHOLANGIO 26531 ABDIFATAH GARDINER GRAPHY&/P 4 [facility] ANCREATOG INC INC MARIAH NTRAOP RS&[place] [address] ABDIFATAH [facility] LIPASE 4 [facility] INC INC COMPREHEN 12306 ABDIFATAH [facility] SIVE 4 [facility] METABOLIC INC INC PANEL LOCM Q9967 ABDIFATAH [facility] 300-399 4 [facility] MG/ML INC INC IODINE CONCENTRA TION PER ML BLOOD 46706 A[facility]ATA[facility] COUNT 4 [facility] COMPLETE INC INC AUTO&AUTO DIFRNTL WBC BLOOD 33105 [facility] COUNT 4 [facility] COMPLETE INC INC AUTO&AUTO DIFRNTL WBC COMPREHEN 80254 ABDIFATAH [facility] SIVE 4 [facility] METABOLIC INC INC PANEL HOSPITAL G0378 ABDIFATAH [facility]ER OBSERVATI 4 [facility] [place] [address] ABDIFATAH GARDINER LIPASE 4 [place] [address] ABDIFATAH GARDINER AMYLASE 4 [place] [address] ABDIFATAH [facility]ER AMYLASE 4 [facility] INC INC INJECTION J1335 ABDIFATAH BURROUGHSON 4 [facility] ERTAPENEM INC INC SODIUM 500 MG INJECTION J2405 ABDIFATAH BURROUGHSON 4 [facility] ONDANSETR INC INC ON HCL PER 1 [place] [address] ABDIFATAH GARDINER LIPASE 4 [place] [address] ABDIFATAH GARDINER INFUSION 4 [facility] THER INC INC PROPH ADDL SEQUENTIA L TO 1 HR H[facility] G0378 ABDIFATAH GARDINER OBSERVATI 4 [facility] ON INC INC SERVICE PER HOUR RADIOLOGI 09584 ABDIFATAH GARDINER C EXAM 4 [facility] CHEST 2 INC INC VIEWS FRONTAL&L ATERAL COMPREHEN 06062 ABIDFATAH GARDINER SIVE 4 [facility] METABOLIC INC INC PANEL C-REACTIV 45840 ABDIFATAH GARDINER E PROTEIN 4 [facility] INC INC BLOOD 22174 ABDIFATAH GARDINER COUNT 4 [facility] COMPLETE INC INC AUTO&[place] [address] ABDIFATAH GARDINER INFUSION 4 [facility] THERAPY INC INC PROPHYLAX IS/DX EA HOUR URINE 34335 ABDIFATAH GARDINER 4 [facility] TEST INC [place] [address] [place] SAM ABDOMINAL 4 MEDICAL ERNESTINE REAL IMAGING TIME ASS W/IMAGE LIMITED URNLS DIP 52677 ABDIFATAH GARDINER 4 [facility] STICK/TAB INC [place] [address] ABDIFATAH GARDINER INFUSION 4 [facility] THERAPY/P INC INC ROPHYLAXI S /DX 1ST TO 1 HR THERAPEUT 19718 ABDIFATAH GARDINER IC 4 [facility] INJECTION INC INC IV PUSH EACH NEW DRUG VAGINAL 21717 BAILEY HIGUERA DELIVERY 4 MEDICAL SULY ONLY SERV W/POSTPAR FOUNDATIO NICA CARE NEURAXIAL 75628 [facility] [place] ANT LABOR 4 ANESTHESI ANALG/ANE A GROUP S PLND PS VAGINAL DELIVERY OTHER 7359 [facility] MANUALLY 4 N N ASSISTED COMMUNTIY COMMUNTIY DELIVERY HOSPITA HOSPITA REPAIR OF 7569 [facility] OTHER 4 N N CURRENT COMMUNTIY COMMUNTIY OBSTETRIC HOSPITA HOSPITA LACERATIO N ANTIBODY 82118 [facility] OF [facility] OF SCREEN 4 [place], RBC EACH INC. INC. SERUM TECHNIQUE SYPHILIS 41961 [facility] OF [facility] OF TEST 4 [place], NON-TREPO INC. INC. NEMAL ANTIBODY QUAL BLOOD 12732 [facility] OF [facility] OF COUNT 4 [place], COMPLETE INC. INC. AUTOMATED CUL 58879 [facility] OF [facility] OF PRSMPTV 4 [place], PTHGNC INC. INC. ORGANISM SCRN W/COLONY ESTIMJ BLOOD 44568 [facility] QUEST COUNT 3 DIAGNOSTI DIAGNOSTI COMPLETE CS CS AUTOMATED ANTIBODY 16298 [facility] SCREEN 3 DIAGNOSTI DIAGNOSTI RBC EACH CS CS SERUM TECHNIQUE SYPHILIS 05843 [facility] QUEST TEST 3 DIAGNOSTI DIAGNOSTI NON-TREPO CS CS NEMAL ANTIBODY QUAL LACTATE 36003 [facility] QUEST DEHYDROGE 3 DIAGNOSTI DIAGNOSTI NASE LDH CS CS COMPREHEN 99756 [facility] QUE[facility] SIVE 3 DIAGNOSTI DIAGNOST[place] [address] [facility] QUEST BLOOD/URI 3 DIAGNOSTI DIAGNOSTI C ACID CS [place] PREG 97783 [place] [facility] UTERUS 3 MEDICAL DONELL REAL TIME SERV F/U FOUNDATIO TRNSABDL PER FETUS DETERMINA 73766 ESTER [facility] 3 GRE GRE REFRACTIV E STATE OPHTH 40949 ESTER [facility] 3 GRE GRE XM&EVAL COMPRE NEW PT 1/> VST GLUCOSE 22061 [facility]ST POST 3 DIAGNOSTI DIAGNOSTI GLUCOSE CS CS [place]SE US PREG 03134 B[facility] UTERUS 3 MEDICAL DONELL AFTER 1ST SERV TRIMEST FOUNDATIO GESTATION URNLS DIP 35137 ABDIFATAH GARDINER 3 [facility] STICK/TAB INC INC LET REAGENT AUTO MICROSCOP Y CULTURE 68698 ABDIFATAH GARDINER BACTERIAL 3 [facility] INC [place] [address] [facility]ER [place] 3 EMERGENCY UTERUS SERVICES LIMITED 1/> FETUSES Encounters Encounter Start End Date Code Location Performer Type Date [facility] [place] [address] 7 N INPATIENT COMMUNTIY [facility] 7 7 [facility] 15925 [facility] 7 MEDICAL T VISIT SERV 15 FOUNDATIO MINUTES [facility] - 7 7 HEALTHCAR OUTPATIEN E HOSPITALS EMERGENCY 72764 [facility] 7 7 MILLIE DEPARTMEN EMERGENCY T VISIT SERVI MODERATE SEVERITY EMERGENCY 66374 ABDIFATAH 7 7 [facility] T VISIT HIGH/URGE NT SEVERITY EMERGENCY 27351 CARLOS ANTONEY DEPT 7 7 PHYSICIAN VISIT S, PLLC HIGH SEVERITY& THREAT [facility] ABDIFATAH - 7 7 [facility] OUTPATIEN [facility] - 7 7 HEALTHCAR OUTPATIEN E [facility] ABDIFATAH - 7 7 [facility] OFFICE 36341 [facility] 6 [facility] T VISIT [facility] DEPT [facility] DEPT 10 [place] MINUTES EMERGENCY 42877 [facility] 6 6 MILLIE - YORBA DEPARTMEN EMERGENCY PAT T VISIT PHYS HIGH/URGE NT SEVERITY [facility] [place] [address] 6 N OUTPATIEN COMMUNTIY T HOSPITA OFFICE 45947 BAILEY HIGUERA OUTPATIEN 6 6 MEDICAL SULY T VISIT SERV 15 FOUNDATIO MINUTES N HOSPITAL [facility] - 6 6 [facility] 73298 SHAYLA SHAYLA VANNPATIEN 6 6 RAJIV RAJIV T VISIT 15 MINUTES HOSPITAL ABDIFATAH - 6 6 MEM [facility] OUTPATIEN INC T EMERGENCY 01585 CARLOS HENRIQUEZ 6 6 PHYSICIAN Marianela [facility] T VISIT MODERATE SEVERITY EMERGENCY 07752 ABDIFATAH 6 6 [facility] INC T VISIT LIMITED/M INOR PROB OFFICE 16264 SHAYLA CORTEZ 6 6 RAJIV RAJIV T VISIT 15 MINUTES OFFICE 32907 OC SMITH CONSULTAT 6 6 Dev4X ION NEW/ESTAB PATIENT 40 MIN OFFICE 31629 [facility] HIGUERA [facility] 6 6 MEDICAL SULY T VISIT SERV 15 FOUNDATIO MINUTES N OFFICE 75629 [facility] 6 6 PHYSICIAN HUSSEIN Araujo NEW 30 S GROUP MINUTES OFFICE 63173 SHAYLA CORTEZ 6 6 RAJIV RAJIV T VISIT 15 MINUTES OFFICE 75239 BAILEY [facility] 6 6 MEDICAL SULY T VISIT SERV 15 FOUNDATIO MINUTES N HOSPITAL ABDIFATAH - 6 6 [facility] INC T EMERGENCY [address] LE LUJAN [address] [facility] T VISIT HIGH/URGE NT SEVERITY OFFICE 57346 SHAYLA CORTEZ 6 6 RAJIV RAJIV T VISIT 15 MINUTES OFFICE 24568 [facility] 5 5 [facility] T NEW 45 SURGICAL MINUTES [facility] [place] - 5 5 N OUTPATIEN COMMUNTIY T HOSPITA PERIODIC 66700 BAILEY HIGUERA PREVENTIV 5 5 MEDICAL SULY E MED EST SERV PATIENT FOUNDATIO 18-39 YRS N OFFICE 41382 JAMESON ELAMCO OUTPATIEN 5 5 [facility] T VISIT HLTH DEPT TH DEPT 15 [place] MINUTES OFFICE 25894 SHAYLA MCGUIRE SARAHEN 5 5 RAJIV RAJIV T VISIT 15 MINUTES OFFICE 06107 SHAYLA MCGUIRE OUTPATIEN 5 5 RAJIV RAJIV T VISIT 15 MINUTES EMERGENCY 58403 ABDIFATAH WONG 5 5 [facility] T VISIT P LOW/MODER SEVERITY EMERGENCY 52589 ABDIFATAH 5 5 [facility] INC T VISIT MODERATE SEVERITY HOSPITAL ABDIFATAH - 5 5 [facility] T OFFICE 42316 [facility] OUTPATIEN 4 4 FOOT & T NEW 30 ANKLE CE MINUTES HOSPITAL ABDIFATAH - 4 4 [facility] OUTPATIEN [facility] T OFFICE 75802 SHAYLA CORTEZ 4 4 RAJIV RAJIV T VISIT 15 MINUTES OFFICE 93870 BAILEY HIGUERA OUTPATIEN 4 4 MEDICAL SULY T VISIT SERV 15 FOUNDATIO MINUTES N OFFICE 43635 SONIA SCOTT OUTPATIARIELLA 4 4 HUSSEIN HUSSEIN T VISIT 15 MINUTES EMERGENCY 81336 JUDITH WONG 4 4 [facility] T VISIT HIGH/URGE NT SEVERITY HOSPITAL ABDIFATAH - 4 4 [facility] OUTPATIEN INC T OFFICE 17285 JAMESON ELAMCO OUTPATIEN 4 4 [facility] T VISIT [facility] DEPT [facility] DEPT 15 [place] MINUTES OFFICE 92254 SHAYLA CORTEZ 4 4 RAJIV RAJIV T VISIT 15 MINUTES OFFICE 76758 [facility] T VISIT HLTH DEPT [facility] DEPT 10 [place] MINUTES OFFICE 47194 SONIA SCOTT OUTPATIEN 4 4 HUSSEIN HUSSEIN T NEW 30 MINUTES EMERGENCY 98159 ALFARIS ALFARIS 4 4 [facility] DEPARTMEN T VISIT HIGH/URGE NT SEVERITY HOSPITAL ABDIFATAH - 4 4 [facility] OUTPATIEN INC T PERIODIC 46559 [facility] 4 4 [facility] E MED EST HL DEPT [facility] DEPT PATIENT [place] [place] 18-39 YRS HOSPITAL ABDIFATAH - 4 4 [facility] OUTPATIEN INC HOSPITAL ABDIFATAH - 4 4 [facility] OUTPATIEN INC T OFFICE 03277 [facility] TOR ZHOU CONSULTAT 4 4 PHYSICIAN PIETRO Galvan GROUP NEW/ESTAB PATIENT 60 MIN EMERGENCY 04245 ABDIFATAH DEPT 4 4 MEM [facility] VISIT INC HIGH SEVERITY& THREAT [facility] ABDIFATAH - 4 4 [facility] OUTPATIEN INC T OFFICE 16697 [facility] JUDITH OUTPATIEN 4 4 PHYSICIAN VETO Araujo NEW 20 S GROUP MINUTES [facility] - 4 4 N INPATIENT COMMUNTIY HOSPITA OFFICE 12059 BAILEY HIGUERA OUTPATIEN 4 4 MEDICAL SULY T VISIT SERV 15 FOUNDATIO MINUTES OFFICE 50555 BAILEY HIGUERA OUTPATIEN 4 4 MEDICAL SULY T VISIT SERV 15 FOUNDATIO MINUTES OFFICE 46252 BAILEY HIGUERA OUTPATIEN 3 3 MEDICAL SULY T VISIT SERV 15 FOUNDATIO MINUTES EMERGENCY 98851 ABDIFATAH 3 3 [facility] DEPARTMEN INC T VISIT LOW/MODER SEVERITY EMERGENCY 67522 [facility] DEPT 3 3 EMERGENCY VISIT SERVICES HIGH SEVERITY& THREAT [facility] ABDIFATAH - 3 3 [facility] OUT[facility]EN [facility] T"
--- OUTSIDE RECORDS SUMMARY | 2017-03-24 18:16 | External Medical Summary Rpt | CCD ---
Author Author , YASMEEN Organization YASMEEN Address Unknown Phone [email or web address]on Care Team Providers Care Manager Lsw Name Role Phone ALFARIS MOH, ALFARIS Unavailable Unavailable MOH ALLRAN JR PIETRO, ALLRAN Unavailable Unavailable JR PIETRO ARNOLD RAJIV, ARNOLD Unavailable Unavailable RAJIV ARNOLD RAJIV, ARNOLD Unavailable Unavailable RAJIV HAIR, HAIR Unavailable Unavailable HAIR, HAIR Unavailable Unavailable BEINEKE SARAH, BEINEKE Unavailable Unavailable SARAH LUJAN DONELL, LUJAN Unavailable Unavailable DONELL LUJANJAYASHREE MARLEY, LUJAN Unavailable Unavailable DONELL BESSON TERE, BESSON Unavailable Unavailable TERE ADKINS ALL, ADKINS ALL Unavailable Unavailable CELLAROSI - YORBA Unavailable Unavailable PAT, CELLAROSI - YORBA PAT [facility] Unavailable Unavailable [facility], [facility] Unavailable Unavailable [facility], [facility] Unavailable Unavailable [facility] SAM ERNESTINE, Unavailable Unavailable SAM ERNESTINE MILY SARAH, MILY SARAH Unavailable Unavailable FINE BRA, FINE BRA Unavailable Unavailable JUDITH, JUDITH Unavailable Unavailable JUDITH VETO, JUDITH Unavailable Unavailable VETO JUDITH VETO, JUDITH Unavailable Unavailable VETO [facility], [facility] CASIE RHO, CASIE Unavailable Unavailable RHO BURROUGHS FERMÍN, BURROUGHS Unavailable Unavailable FERMÍN [facility] Unavailable Unavailable INC, [facility] Unavailable Unavailable HOSPITAL P, [facility]ITAL P HIGUERA, HIGUERA Unavailable Unavailable HIGUERA SULY, HIGUERA Unavailable Unavailable SULY CARPENTER, CARPENTER Unavailable Unavailable CARPENTER, CARPENTER Unavailable Unavailable [facility], Unavailable Unavailable [facility] PIERCE, PIERCE Unavailable Unavailable [facility] Un[facility] Unavailable GROUP PS, [facility] Un[facility] Unavailable [facility], [facility], Unavailable Unavailable [facility] Un[facility], [facility] Un[facility], [facility] Unavailable Unavailable [facility] Unavailable Unavailable [facility] SCOTT HUSSEIN, SCOTT Unavailable Unavailable HUSSEIN SCOTT HUSSEIN, SCOTT Unavailable Unavailable HUSSEIN [facility] Unavailable [facility], [facility] KASEY ANT, KASEY ANT Unavailable Unavailable ESTER NOAH, Unavailable Unavailable ESTER NOAH ESTER GRE, Unavailable Unavailable ESTER GRE [facility], Unavailable Unavailable ESTER GRE [facility] Unavailable Unavailable SERVICES, [facility] O'GREGOR, O'GREGOR Unavailable Unavailable O'GREGOR [...] Unavailable SOTINGEANU SARAH, Unavailable Unavailable SOTINGEANU SARAH [facility] Unavailable Unavailable EMERGENCY PHYS, [facility] Unavailable Unavailable EMERGENCY SERVI, [facility] TALAMANTES RAY TALAMANTES Unavailable Unavailable CAIN PALACIO Unavailable Unavailable HANNY CHARITY, HANNY Unavailable Unavailable [facility] Unavailable Unavailable HOSPITALS, [facility], Unavailable Unavailable [facility] Unavailable Unavailable DEPT [facility] DEPT [facility] Unavailable Unavailable DEPT [facility] DEPT [facility] ELLIOTT BRAUN Unavailable Unavailable Purpose Continuity of Care Document - 12-15-2012 through 2016 Problems Code Diagnosis DOS Provider Status E039 HYPOTHYROID 01-26-2017 [facility]NSPECIFIED FOUNDATION E6601 MORBID 01-26-2017 [facility] OBESITY DUE HOSPITA TO EXCESS CALORIES O701 SECOND 01-26-2017 [facility] DEGREE COMMUNTI PERINEAL HOSPITA LACERATION DUR DELIVERY O76 ABNORMALITY 01-26-2017 [facility] IN COMMUNTIY HRT RATE HOSPITA RHYTHM COMP L & D O80 ENCOUNTER 01-26-2017 [place] [facility] FULL-TERM GROUP PS UNCOMPLICAT ED DELIVERY C21154 OBESITY 01-26-2017 [facility] COM[facility]ICAT[facility] SERV G [facility]OUNDATION CHILDBIRTH S22497 ENDOCRINE 01-26-2017 [facility] N[facility] & SERV METAB [facility] COMP CHILDBIRTH H82328 SMOKING 01-26-2017 [facility] TOBACCO SERV COMPLICATIN FOUNDATION G CHILDBIRTH Z370 SINGLE LIVE 01-26-2017 [facility] Z382 SINGLE 01-26-2017 [facility] LIVEBORN NERI STOUT UNS TO PLACE OF Z6841 BODY MASS 01-26-2017 [facility] INDEX BMI COMMUNTIY 40.0-44.9 HOSPITA ADULT E663 OVERWEIGHT 01-06-2017 [facility] F81057 OBESITY 01-06-2017 [place] [facility] THIRD TRIMESTER K66442 ENDOCRINE 01-06-2017 [facility] N[facility] METAB DZ FOUNDATION COMP PREG 3RD TRI W31028 OTH MENTAL 01-06-2017 [facility] DISORDER [facility] COMP FOUNDATION 3RD TRIMESTER Z23 ENCOUNTER 01-06-2017 [facility] FOR SERV IMMUNIZATIO FOUNDATION N Z3483 ENC 01-06-2017 [facility] OT NORMAL HOSPITALS 3 TRIMESTER Z36 ENCOUNTER 01-06-2017 [facility] HOSPITALS SCREENING OF MOTHER Z3A36 36 [...] [facility]OUTHEASTER N EMERGENCY RESPIRATORY SERVI INFECTION UNSPECIFIED H14801 DISEASES 11-27-2016 [facility] RESPIRATORY N EMERGENCY SYS COMP SERVI 3RD TRI Z3A30 30 WEEKS 11-27-2016 [facility] GESTATION N EMERGENCY OF SERVI K529 NONINFECTIV 11-10-2016 [facility] E PHYSICIANS, GASTROENTER PLLC ITIS & COLITIS UNS K9289 OTHER 11-10-2016 [facility] SPECIFIED [facility] DISEASES OF INC THE DIGESTIVE SYSTEM L24911 DISEASES 11-10-2016 [facility] DIGESTIVE PHYSICIANS, SYSTEM COMP PLLC 2ND TRI O21208 DISEASES 11-10-2016 [facility] DIGESTIVE [facility] SYSTEM COMP INC 3RD TRI Z3A28 28 WEEKS 11-10-2016 [facility] GESTATION PHYSICIANS, OF PLLC K589 IRRITABLE 10-29-2016 [facility] WITHOUT DIARRHEA O2342 UNS INF 10-29-2016 [facility] TRACT HOSPITALS SECOND TRIMESTER E92616 ENDOCRINE 10-29-2016 [facility] METAB HOSPITALS COMP PREG 2ND TRI Z3A26 26 WEEKS 10-29-2016 [facility] OF HOSPITALS O2692 10-27-2016 [facility] RELATED [facility] CONDITIONS INC UNS 2ND TRIMESTER R109 UNSPECIFIED 10-27-2016 [facility] ABDOMINAL [facility] PAIN INC 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 H5213 MYOPIA 10-14-2016 HAIR BILATERAL G03116 OBESITY 09-20-2016 [facility] COMPLICATIN SERV G FOUNDATION SECOND TRIMESTER Z3A20 20 WEEKS 09-20-2016 [facility] GESTATION SERV OF FOUNDATION Z3189 ENCOUNTER 06-10-2016 [facility] FOR OTHER DISTRICT PROCREATIVE [facility]NAGEMENT RUTH Z3201 ENCOUNTER 06-10-2016 [facility] FOR DISTRICT HLTH DEPT TEST RESULT RUTH POSITIVE H538 OTHER 04-08-2016 [facility] VISUAL COMMUNTIY DISTURBANCE HOSPITA S H539 UNSPECIFIED 04-08-2016 [facility] VISUAL N EMERGENCY DISTURBANCE PHYS R110 NAUSEA 04-08-2016 [facility] H[facility]ITA R51 HEADACHE 04-08-2016 [facility] Z720 TOBACCO USE 04-08-2016 [facility] H[facility]PITA N921 EXCESS & 03-18-2016 [facility] MENSTRUATIO N W/IRREGULAR CYCLE N56390 OTHER LONG 03-18-2016 [facility] CURRENT DRUG THERAPY P66838 PAIN IN 03-05-2016 ARNALBERT RAJIV UNSPECIFIED FOOT M722 PLANTAR 01-21-2016 [facility] FASCIAL PHYSICIANS, FIBROMATOSI PLL S B94830 PAIN IN 01-21-2016 [place] LEFT [facility]OT [facility] H21148 OTHER 01-16-2016 ARNALBERT RAJIV MIGRAINE INTRACT W/O STATUS MIGRAINOSUS D649 ANEMIA 12-19-2015 COMBINED UNSPECIFIED PHYSICIANS [place] E119 TYPE 2 12-19-2015 [facility] DIABETES PHYSICIANS MELLITUS LA WITHOUT COMPLICATIO NS E785 HYPERLIPIDE 12-19-2015 [facility]ED CONSTANTIN PHYSICIANS UNSPECIFIED LA I10 ESSENTIAL 12-19-2015 COM[facility]ED PRIMARY PHYSICIANS HYPERTENSIO LA N N63 UNSPECIFIED 11-25-[address] [facility] BREAST N644 MASTODYNIA 11-25-2015 [place] [facility] R590 LOCALIZED 11-25-[address] [facility] ENLARG[facility] LYMPH NODES B379 CANDIDIASIS 11-18-2015 [facility] UNSPECIFIED FOUNDATION N6009 SOLITARY 11-18-2015 [facility] CYST OF SERV UNSPECIFIED FOUNDATION BREAST Z0100 ENCOUNTER 09-20-2015 ESTER EXAM EYES & GRE VISION W/O ABNORMAL FIND J0100 ACUTE 09-11-2015 [facility] MAXILLARY PHYSICIANS SINUSITIS GROUP UNSPECIFIED J320 CHRONIC 09-11-2015 [facility] MAXILLARY PHYSICIANS SINUSITIS GROUP M2662 ARTHRALGIA 09-01-2015 ARNOLD RAJIV OF TEMPOROMAND IBULAR JOINT R102 PELVIC AND 08-13-2015 [facility] PERINEAL SERV PAIN FOUNDATION Z03330 PAIN IN 07-16-2015 [place] RIGHT [facility]ST [facility] IM[facility]ING ASS M6740 GANGLION 07-16-2015 [facility] UNSPECIFIED [facility]OS[facility] SITE INC K219 GASTRO-ESOP 07-12-2015 LE MARLEY H REFLUX DISEASE WITHOUT ESOPHAGITIS 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 R0789 OTHER CHEST 07-12-2015 LE DONELL PAIN R079 CHEST PAIN 07-09-2015 ARNOLD RAJIV UNSPECIFIED B67138 ENCOUNTER 05-22-2015 [facility] RESISTANCE BRAZER EXAM LLC GENERAL RTN W/O ABNORMAL FIND 1121 CANDIDIASIS 01-28-2015 [facility] OF VULVA [facility] AND VAGINA [facility] 6101 DIFFUSE 01-28-2015 [facility] CYSTIC DISTRICT MASTOPATHY [facility] 33433 SPASM OF 12-13-2014 ARNOLD RAJIV MUSCLE 2724 OTHER AND 08-21-2014 COMBINED UNSPECIFIED PHYSICIANS LA HYPERLIPIDE CONSTANTIN 4659 ACUTE URIS 08-21-2014 ARNOLD RAJIV OF UNSPECIFIED SITE 31273 FEVER 08-21-2014 [place] [address] OTHER 08-21-2014 COMBINED MALAISE AND PHYSICIANS FATIGUE LA 7295 PAIN IN 06-19-2014 [place] SOFT MEDICAL TISSUES OF IMAGING ASS LIMB 76610 CALCANEAL 05-13-2014 [place] [address] OTHER 05-13-2014 [place] ENTHESOPATH FOOT & Y OF ANKLE ANKLE CE AND TARSUS 88449 PAIN IN 05-06-2014 [facility] JOINT, MEM HOSP ANKLE AND INC FOOT V2501 GENERAL 04-23-2014 [facility] COUNSELING SERV PRESCRIPTIO FOUNDATION N ORAL CONTRACEPTS V7241 04-23-2014 [facility] EXAMINATION SERV OR TEST FOUNDATION NEGATIVE RESULT 97334 UNSPECIFIED 03-28-2014 SCOTT HUSSEIN ACUTE NONSUPPURAT SOPHIA OTITIS MEDIA 05554 OTHER ACUTE 03-27-2014 JUDITH VETO POSTOPERATI VE PAIN 7841 THROAT PAIN 03-27-2014 [facility] VETO 13230 OBSTRUCTIVE 03-21-2014 [facility] P 463 ACUTE 03-21-2014 [facility], TONSILLITIS LLC 56036 CHRONIC 03-21-2014 SONIA SAVAGE TONSILLITIS 96239 HYPERTROPHY 03-21-2014 [facility], OF TONSILS LLC ALONE V2541 SURVEILLANC 03-19-2014 [facility] E PREV DISTRICT PRESCRIBED [facility] CONTRACEPT RUTH PILL V2689 OTHER 03-19-2014 [facility] SPECIFIED DISTRICT PROCREATIVE [facility] MANAGEMENT RUTH 462 ACUTE 03-05-2014 SHAYLA VANCE PHARYNGITIS 6929 CONTACT 03-05-2014 SHAYLA VANCE DERMATITIS& OTHER ECZEMA DUE UNSPEC CAUSE V2503 ENCOUNTER 03-05-2014 [facility] EMERGENCY DISTRICT CONTRACEPT [facility] DE[facility] CNSL&PRESCR RUTH IPTION 2893 LYMPHADENIT 02-28-2014 SONIA SAVAGE IS UNSPECIFIED EXCEPT MESENTERIC 5282 ORAL 02-16-2014 [facility] APHTHAE [facility] INC V2549 SURVEILLANC 12-25-2013 [facility] E OTH PREV DISTRICT PRSC HLTH DEPT CONTRACEPT RUTH METHOD V7231 ROUTINE 12-25-2013 [facility], GYNECOLOGIC LLC AL EXAMINATION 91206 CALCU 09-17-2013 [facility], GALLBLADD LLC W/OTH CHOLECYST W/O MENTION OBST 34470 CALCU 09-17-2013 [facility] GALLBLADD PHYSICIANS W/O MENTION GROUP CHOLECYST/O BST 48533 CHOLECYSTIT 09-17-2013 COMMUNITY IS, ANESTH OF UNSPECIFIED THE BLUE 5770 ACUTE 09-17-2013 [facility] PANCREATITI PHYSICIANS S GROUP V4579 OTHER 09-17-2013 [place] ACQUIRED MEDICAL ABSENCE OF IMAGING ASS ORGAN 5758 OTHER 09-12-2013 [facility] SPECIFIED [facility] DISORDER OF INC GALLBLADDER 35614 MORBID 09-06-2013 [facility] OBESITY [facility] INC 06236 CALCU BD 09-06-2013 [facility] W/ACUT [facility] H[facility]P CHOLECYST INC W/O MENTION OBST V8541 BODY MASS 09-06-2013 [facility] INDEX MEM HOSP 40.0-44.9 INC ADULT 56012 ABDOMINAL 09-01-2013 [facility] PAIN RIGHT PHYSICIANS UPPER GROUP QUADRANT 76859 BENIGN 07-09-2013 [facility] ESSENTIAL COMMUNTIY HYPERTENSIO HOSPITA N WITH DELIVERY 11053 IVETTE 07-09-2013 [facility] ESSENTIAL SERV HYPERTENSIO FOUNDATIO N W/DELIV W/CURRENT PPC 52097 OBESITY 07-09-2013 [facility] COMP PG SERV CHILDBIRTH/ FOUNDATIO THE PP DEL W/PP COMP 650 NORMAL 07-09-2013 [place] [address] SECOND-DEGR 07-09-2013 [facility] PERINEAL COMMUNTIY LACERATION HOSPITA WITH DELIVERY V270 OUTCOME OF 07-09-2013 [facility] DELIVERY SERV SINGLE FOUNDATIO LIVEBORN 59604 OBESITY, 07-06-2013 [facility] UNSPECIFIED SERV FOUNDATIO 4019 UNSPECIFIED 07-06-2013 [facility] ESSENTIAL SERV HYPERTENSIO FOUNDATIO N 24209 UNSPECIFIED 07-06-2013 [facility] HYPERTENSIO FOUNDATIO N ANTEPARTUM V239 UNSPECIFIED 07-06-2013 [facility] HIGH-RISK SERV FOUNDATIO V2389 SUPERVISION 06-29-2013 [facility] OF OF [facility]. HIGH-RISK 03742 UTERINE 05-23-2013 [facility] SIZE DATE SERV DISCREPANCY FOUNDATIO ANTPRTM COND/COMPL V720 EXAMINATION 05-17-2013 ESTER OF EYES GRE AND VISION V221 SUPERVISION 03-30-2013 [facility] OF OTHER DIAGNOSTICS NORMAL 42016 UNS 02-28-2013 [facility] &PLACN SERV TL PROB FOUNDATIO AFFCT MGMT MOTH ANTPRTM V2881 ENCOUNTER 02-28-2013 [facility] FOR SERV ANATOMIC FOUNDATIO SURVEY 5990 URINARY 12-15-2012 [facility] TRACT [facility] INFECTION INC SITE NOT SPECIFIED 12728 INFECTIONS 12-15-2012 [facility] OF EMERGENCY GENITOURINA SERVICES RY TRACT ANTEPARTUM 41517 OTHER 12-15-2012 [facility] SPECIFED [facility] COMPLICATIO [...] NT ET HI AN A IN C NC 39 09 09 30 30 00 EA Ac EN 32 -0 -[address] ti AT 80 5- 9- 00 00 SI ve AL 10 20 20 49 DE 61 17 17 33 0 11 PH TA AR OR MA N CY PL US OF CY [...] HI UL AN E A IN C NC 39 08 08 30 30 00 EA Ac EN 32 -0 -[address] ti AT 80 1- 5- 00 00 SI ve AL 10 20 20 49 DE 61 17 17 33 0 11 PH TA AR OR MA N CY PL US OF CY [...] NT ET HI AN A IN C NC 39 07 07 30 30 00 EA Ac EN 32 -0 -[address] ti AT 80 3- 8- 00 00 SI ve AL 10 20 20 49 DE 61 17 17 33 0 11 PH TA AR OR MA N CY PL US OF CY [...] 5 79 PH CE AR TA MA OR CY NO PH OF EN CY NT [...] Procedures Procedure DOS Code Location Performer Comment [facility] [address] [facility] DISCHARGE 7 MSO, [facility] DAY MANAGEMEN T 30 MIN/< DRAINAGE 75182IY [facility] AMNIOTIC 7 N N FLUID COMMUNTIY COMMUNTIY THERAPEUT HOSPITA HOSPITA POC SAI/ART OP DELIVERY [id number] [facility] PRODUCTS 7 N N OF COMMUNTIY COMMUNTIY CONCEPTIO HOSPITA HOSPITA N EXTERNAL REPAIR 4PTH8CO [facility] PERINEUM 7 N N MUSCLE COMMUNTIY COMMUNTIY OPEN HOSPITA HOSPITA APPROACH NEURAXIAL 06842 [place] DAVIS LABOR 7 ANESTHESI ANALG/ANE A GROUP S PLND PS VAGINAL DELIVERY 1ST 50450 [facility] HOSP/NIMO 7 [facility], [facility] CARE PER DAY NML NB VAGINAL 96550 B[facility] HIGUERA DELIVERY 7 MEDICAL ONLY SERV FOUNDATIO N IADNA 45590 [facility] STREPTOCO 7 HEALTHCAR HEALTHCAR CCUS E E GROUP B [facility] [place] IM ADM 97150 [facility] HIGUERA PRQ ID 7 MEDICAL SUBQ/IM SERV NJXS 1 FOUNDATIO VACCINE N TDAP 42539 [facility] HIGUERA VACCINE 7 7 MEDICAL YRS/> IM SERV FOUNDATIO N BLOOD 78335 [facility] COUNT 7 HEALTHCAR HEALTHCAR COMPLETE E E [place]OM[place] [address] [facility] THYROID 7 HEALTHCAR HEALTHCAR STIMULATI E E NG [facility] HORMONE TSH US PREG 84519 BAILEY O'GREGOR UTERUS 7 MEDICAL REAL TIME SERV F/U FOUNDATIO TRNSABDL N PER FETUS CULTURE 95089 [facility] GARDINER BACTERIAL 7 MEM HOSP [facility]OS[facility] INC INC QUANTTATI VE COLONY COUNT URINE URNLS DIP 94257 [facility] GARDINER 7 MEM HOSP MEM HOS[facility] STICK/TAB INC [place] [address] [facility] G[facility]ER INFUSION 7 MEM HOSP [facility]OS[facility] THERAPY/P INC INC ROPHYLAXI S /DX 1ST TO 1 HR THERAPEUT 68690 [facility] GARDINER IC 7 MEM HOSP MEM HOSP INJECTION INC INC IV PUSH EACH NEW DRUG COMPREHEN 49264 [facility] G[facility]ER SIVE 7 MEM HOSP MEM HOSP METABOLIC INC INC PANEL BLOOD 36404 [facility] GARDINER COUNT 7 MEM HOSP MEM HOSP COMPLETE INC INC AUTO&AUTO DIFRNTL WBC GLUCOSE 34394 [facility] POST 7 HEALTHCAR HEALTHCAR GLUCOSE E E DOSE [facility] 87398 [facility] GARDINER NONSTRESS 7 MEM HOSP MEM HOSP TEST INC INC DRUG TEST 16975 [facility] GARDINER PRSMV 7 MEM HOSP MEM HOSP QUAL DIR INC INC OPTICAL OBS PER DAY CULTURE 44290 [facility] GARDINER BACTERIAL 7 MEM HOSP MEM HOSP INC INC QUANTTATI VE COLONY COUNT URINE FITTING 91569 JAYDEN CARPENTER SPECTACLE 7 S XCPT APHAKIA MONOFOCAL FRAMES V2020 [facility] HAIR PURCHASES 7 1 VISN V2103 [facility] HAIR PLANO 7 TO+/-4.00 D SPHER 0.12-2.00 D [place] PREG 78288 [facility] O'GREGOR UTERUS 7 MEDICAL AFTER 1ST SERV TRIMEST FOUNDATIO / N GESTATION URINE 31498 [facility] 6 DISTRICT DISTRICT TEST HLTH DEPT HLTH DEPT VISUAL [place] [address] [facility] BAILEY TALAMANTES HEAD/BRAI 6 RADIOLOGY RAY [place] [address] [facility] THYROID 6 Y Y STIMULATI [facility] NG HORMONE TSH URINE 94583 BAILEY HIGUERA 6 MEDICAL SULY TEST SERV VISUAL FOUNDATIO COLOR N CMPRSN METHS BLOOD 91474 [facility] COUNT 6 Y Y COMPLETE [facility] AUTOMATED RADEX 17636 [place] ADK[facility] ALL FOOT 6 MEDICAL COMPLETE IMAGING MINIMUM 3 ASS VIEWS 25 76213 COMBINED COMBINED HYDROXY 6 PHYSICIAN PHYSICIAN INCLUDES [place] [address] COMBINED COMBINED FREE 6 PHYSICIAN PHYS[place] [address] COMBINED COMBINED THYROID 6 PHYSICIAN PHYSICIAN STIMULATI S LA S LA NG HORMONE TSH SEDIMENTA 43676 COMBINED COMBINED TION RATE 6 PHYSICIAN PHYSICIAN [place] [address] COMBINED COMBINED TRIIODOTH 6 PHYSICIAN PHYSICIAN YRONINE S LA S LA T3 TOTAL TT3 BLOOD 05339 COMBINED COMBINED COUNT 6 PHYSICIAN PHYSICIAN COMPLETE S LA S LA AUTO&AUTO DIFRNTL WBC HEMOGLOBI 24823 COMBINED COMBINED N 6 PHYSICIAN PHYSICIAN GLYCOSYLA S LA S LA MARVA A1C COMPREHEN 46864 COMBINED COMBINED SIVE 6 PHYSICIAN PHYSICIAN METABOLIC S LA S LA PANEL LIPID 60723 COMBINED COMBINED PANEL 6 PHYSICIAN PHYSICIAN S LA S LA OPHTH 63822 [facility] 6 GRE GRE XM&EVAL COMPRHNSV ESTAB PT 1/> URINE 82504 BAILEY AVALOS 6 MEDICAL MEDICAL TEST SERV SERV VISUAL FOUNDATIO FOUNDATIO COLOR N N CMPRSN METHS RADEX 88109 [place] BEINEKE WRIST 6 MEDICAL SARAH COMPLETE IMAGING MINIMUM 3 ASS VIEWS ECG 78415 LE LUJAN ROUTINE 6 [facility] ECG W/LEAST 12 LDS I&R ONLY US BREAST 82014 [facility] [place] CASIE UNI REAL 5 RADIOLOGY RHO TIME WITH IMAGE LIMITED CYTP C/V 00372 [facility], [facility] AUTO THIN 5 LLC LLC L[place] [address] COMBINED COMBINED FREE 5 PHYSICIAN PHYSIC[place] [address] COMBINED COMBINED TRIIODOTH 5 PHYSICIAN PHYSICIAN YRONINE S LA S LA T3 TOTAL TT3 SEDIMENTA 25339 COMBINED COMBINED TION RATE 5 PHYSICIAN PHYSICIAN RBC S LA S LA NON-AUTOM ATED LIPID 35268 COMBINED COMBINED PANEL 5 PHYSICIAN PHYSICIAN S LA S LA GENERAL 30781 COMBINED COMBINED HEALTH 5 PHYSICIAN PHYSICIAN PANEL S LA S LA CUL BACT 73985 COMBINED COMBINED XCPT 5 PHYSICIAN PHYSICIAN URINE S LA S LA BLOOD/STO OL AEROBIC ISOL DUP-SCAN 93579 [place] SAM XTR VEINS 5 MEDICAL ERNESTINE IMAGING UNILATERA ASS L/LIMITED STUDY RADEX 41647 [facility] GARDINER FOOT 4 MEM HOSP MEM HOSP COMPLETE INC INC MINIMUM 3 VIEWS URINE 73672 [place] HIGUERA 4 MEDICAL SULY TEST SERV VISUAL FOUNDATIO COLOR N CMPRSN METHS URINE 30177 [facility] GARDINER 4 MEM HOSP MEM HOSP TEST INC INC VISUAL COLOR CMPRSN METHS TONSILLEC 05131 SONIA SCOTT SYED 4 HUSSEIN HUSSEIN PRIMARY/S ECONDARY AGE 12/> ECG 78393 [facility] CROCKETT ROUTINE 4 [facility] W/LEAST P 12 LDS I&R ONLY BLOOD 62307 [facility] GARDINER COUNT 4 MEM HOSP MEM HOSP COMPLETE INC INC AUTO&AUTO DIFRNTL WBC LEVEL III 17029 [facility] SURG 4 LLC LLC PATHOLOGY GROSS&VETO ROSCOPIC EXAM ANESTHESI 33507 COMMUNITY HANNY A 4 ANESTH CHARITY INTRAORAL OF THE WITH BLUE BIOPSY NOS CONTRACEP S4993 [facility] TIVE 4 DISTRICT DISTRICT PILLS FOR HLTH DEPT HLTH DEPT RUTH RUTH CONTROL URINE 13865 [facility] 4 DISTRICT DISTRICT TEST HLTH DEPT HLTH DEPT VISUAL RUTH RUTH COLOR CMPRSN METHS THERAPEUT 46883 [facility] GARDINER IC 4 MEM HOSP MEM HOSP PROPHYLAC INC INC TIC/DX INJECTION SUBQ/IM CONTRACEP J7304 [facility] TIVE 4 DISTRICT DISTRICT SUPPLY [facility] HORMONE RUTH RUTH CONTAININ G PATCH EA CYTP 32865 [facility], PICKLESIM CERV/VAG 4 LLC ER JR GIDEON AUTO THIN LAYER PREP MNL SCREEN IADNA 41335 [facility] CHLAMYDIA 4 [facility] TRACHOMAT RUTH RUTH IS AMPLIFIED PROBE TQ IADNA 49139 [facility] NEISSERIA [facility] GONORRHOE RUTH RUTH AE AMPLIFIED PROBE TQ ANES 90138 COMMUNITY ZEENAT THERESA INTRAPERI 4 ANESTH TONEAL OF THE UPPER BLUE [place] W/[place] [address] [facility] GARDINER INFUSION 4 MEM HOSP MEM HOSP THERAPY INC INC PROPHYLAX IS/DX EA HOUR CHOLANGIO 70433 [facility] VARGAS GRAPHY&/P 4 MEDICAL ERNESTINE ANCREATOG IMAGING MARIAH ASS NTRAOP RS&I LEVEL III 81062 [facility], ESTER SURG 4 [facility] NOAH PATHOLOGY GROSS&VETO ROSCOPIC EXAM LAPS SURG 19773 [facility] TOR ZHOU 4 PHYSICIAN PIETRO Galvan GROUP ECTOMY W/CHOLANG IOGRAPHY CHOLANGIO 28084 ABDIFATAH GARDINER GRAPHY&/P 4 [facility] ANCREATOG INC INC MARIAH NTRAOP RS&[place] [address] ABDIFATAH GARDINER LIPASE 4 [facility] INC INC COMPREHEN 07410 ABDIFATAH GARDINER SIVE 4 [facility] METABOLIC INC INC PANEL LOCM Q9967 ABDIFATAH GARDINER 300-399 4 [facility] MG/ML INC INC IODINE CONCENTRA TION PER ML BLOOD 23409 ABDIFATAH GARDINER COUNT 4 [facility] COMPLETE INC INC AUTO&AUTO DIFRNTL WBC BLOOD 75307 ABDIFATAH GARDINER COUNT 4 [facility] COMPLETE INC INC AUTO&AUTO DIFRNTL WBC COMPREHEN 01398 ABDIFATAH GARDINER SIVE 4 [facility] METABOLIC INC INC PANEL HOSPITAL G0378 ABDIFATA[facility] OBSERVATI 4 [facility] [place] [address] ABDIFATAH GARDINER LIPASE 4 [place] [address] ABDIFATAH GARDINER AMYLASE 4 [place] [address] ABDIFATAH GARDINER AMYLASE 4 [facility] INC INC INJECTION J1335 ABDIFATAH BURROUGHSON 4 [facility] ERTAPENEM INC INC SODIUM 500 MG INJECTION J2405 ABDIFATAH BURROUGHSON 4 [facility] ONDANSETR INC INC ON HCL [place] 1 [place] [address] ABDIFATAH GARDINER LIPASE 4 [place] [address] ABDIFATAH GARDINER INFUSION 4 [facility] THER INC INC PROPH ADDL SEQUENTIA L TO 1 HR HOSPITAL G0378 ABDIFATAH GARDINER OBSERVATI 4 [facility] ON INC INC SERVICE PER HOUR RADIOLOGI 64496 ABDIFATAH GARDINER C EXAM 4 [facility] CHEST 2 INC INC VIEWS FRONTAL&L ATERAL COMPREHEN 05408 ABDIFATAH GARDINER SIVE 4 [facility] METABOLIC INC INC PANEL C-REACTIV 28868 ABDIFATAH GARDINER E PROTEIN 4 [facility] INC INC BLOOD 45802 ABDIFATAH GARDINER COUNT 4 [facility] COMPLETE INC INC AUTO&[place] [address] ABDIFATAH GARDINER INFUSION 4 [facility] THERAPY INC INC PROPHYLAX IS/DX EA HOUR URINE 90310 ABDIFATAH GARDINER 4 [facility] TEST INC [place] [address] [place] SAM ABDOMINAL 4 MEDICAL ERNESTINE REAL IMAGING TIME ASS W/IMAGE LIMITED URNLS DIP 32936 ABDIFATAH GARDINER 4 [facility] STICK/TAB INC INC [place] [address] ABDIFATAH [facility]USION 4 [facility] THERAPY/P INC INC ROPHYLAXI S /DX 1ST TO 1 HR THERAPEUT 00834 ABDIFATAH [facility] IC 4 [facility] INJECTION INC INC IV PUSH EACH NEW DRUG VAGINAL 44353 [facility] HIGUERA DELIVERY 4 MEDICAL SULY ONLY SERV W/POSTPAR FOUNDATIO NICA CARE NEURAXIAL 38487 [facility] [place] ANT LABOR 4 ANESTHESI ANALG/ANE A GROUP S PLND PS VAGINAL DELIVERY OTHER 7359 [facility] 4 N N ASSISTED COMMUNTIY COMMUNTIY DELIVERY [place]OSP[place]IR OF 7569 [facility] OTHER 4 N N CURRENT COMMUNTIY COMMUNTIY OBSTETRIC HOSPITA HOSPITA LACERATIO N ANTIBODY 36361 [facility] SCREEN 4 [place], RBC EACH INC. INC. SERUM TECHNIQUE SYPHILIS 36703 [facility] OF TEST 4 [place], NON-TREPO INC. INC. NEMAL ANTIBODY QUAL BLOOD 99970 [facility] OF COUNT 4 [place], COMPLETE INC. INC. AUTOMATED CUL 86912 [facility] OF PRSMPTV 4 [place], PTHGNC INC. INC. ORGANISM SCRN W/COLONY ESTIMJ BLOOD 82815 [facility] QUEST COUNT 3 DIAGNOSTI DIAGNOSTI COMPLETE CS CS AUTOMATED ANTIBODY 31477 [facility] SCREEN 3 DIAGNOSTI DIAGNOSTI RBC EACH CS CS SERUM TECHNIQUE SYPHILIS 44128 [facility]ST QUEST TEST 3 DIAGNOSTI DIAGNOSTI NON-TREPO CS CS NEMAL ANTIBODY QUAL LACTATE 57419 [facility] QUEST DEHYDROGE 3 DIAGNOSTI DIAGNOSTI NASE LDH CS CS COMPREHEN 00688 [facility] QUE[facility] SIVE 3 DIAGNOSTI DIAGNOSTI [place] [address] QUEST QUEST BLOOD/URI 3 DIAGNOSTI DIAGNOSTI C ACID CS CS US PREG 20954 [place] [facility] UTERUS 3 MEDICAL DONELL REAL TIME SERV F/U FOUNDATIO TRNSABDL PER FETUS DETERMINA 44444 ESTER [facility] 3 GRE GRE REFRACTIV E STATE OPHTH 51860 [facility] 3 GRE GRE XM&EVAL COMPRE NEW PT 1/> VST GLUCOSE 57505 [facility] QUEST POST 3 DIAGNOSTI DIAGNOSTI GLUCOSE CS CS DOSE US PREG 38606 [facility] UTERUS 3 MEDICAL DONELL AFTER 1ST SERV TRIMEST FOUNDATIO GESTATION URNLS DIP 43192 ABDIFATAH GARDINER 3 [facility] STICK/TAB INC INC LET REAGENT AUTO MICROSCOP Y CULTURE 56720 ABDIFATAH [facility] BACTERIAL 3 [facility] INC [place] [address] [facility]ER [place] 3 EMERGENCY UTERUS SERVICES LIMITED 1/> FETUSES Encounters Encounter Start End Date Code Location Performer Type Date [facility] [place] [address] 7 N INPATIENT COMMUNTIY [facility] - 7 7 [facility] 16937 [facility] 7 7 MEDICAL T VISIT SERV 15 FOUNDATIO MINUTES [facility] - 7 7 [facility] OUTPATIEN E HOSPITALS EMERGENCY 12914 [facility] 7 7 MILLIE DEPARTMEN EMERGENCY T VISIT SERVI MODERATE SEVERITY EMERGENCY 52599 ABDIFATAH 7 7 [facility] T VISIT HIGH/URGE NT SEVERITY EMERGENCY 22100 [facility] ANTONE[facility] DEPT 7 7 PHYSICIAN VISIT S, PLLC HIGH SEVERITY& THREAT [facility] ABDIFATAH - 7 7 [facility] OUTPATIEN [facility] - 7 7 [facility]ALTH[facility] OUTPATIEN E [facility] ABDIFATAH [facility] 7 7 [facility] OFF[facility] 31903 [facility] [place] MIN[facility] EMERGENCY 58310 [facility] CELLARO 6 6 MILLIE - YORBA DEPARTMEN EMERGENCY PAT T VISIT PHYS HIGH/URGE NT SEVERITY [facility] [place] 41918 6 N OUTPATIEN COMMUNTIY T HOSPITA OFFICE 03165 [facility] HIGUERA OUTPATIEN 6 6 MEDICAL SULY T VISIT SERV 15 FOUNDATIO MINUTES N HOSPITAL [facility] - 6 [facility] 86677 SHAYLA SHAYLA VANNPATIEN 6 6 RAJIV RAJIV T VISIT 15 MINUTES HOSPITAL ABDIFATAH - 6 6 [facility] OUTPATIEN INC T EMERGENCY 54225 CARLOS HENRIQUEZ 6 6 PHYSICIAN Marianela SMITH [facility] S, [facility] T VISIT MODERATE SEVERITY EMERGENCY 00974 ABDIFATAH 6 6 [facility] T VISIT LIMITED/M INOR PROB OFFICE 58389 SHAYLA CORTEZ 6 6 RAJIV RAJIV T VISIT 15 MINUTES OFFICE 46975 [facility] CONS[facility]AT 6 6 [employer] ION NEW/ESTAB PATIENT 40 MIN OFFICE 90336 [facility] 6 6 MEDICAL SULY T VISIT SERV 15 FOUNDATIO MINUTES N OFFICE 54300 [facility] 6 6 PHYSICIAN HUSSEIN Araujo NEW 30 S GROUP MINUTES OFFICE 32813 SHAYLA CORTEZ 6 6 RAJIV RAJIV T VISIT 15 MINUTES OFFICE 76441 [facility] 6 6 MEDICAL SULY T VISIT SERV 15 FOUNDATIO MINUTES N HOSPITAL ABDIFATAH - 6 6 [facility] T EMERGENCY 41845 LE LUJAN 6 6 [facility] T VISIT HIGH/URGE NT SEVERITY OFFICE 47750 SHAYLA CORTEZ 6 6 RAJIV RAJIV T VISIT 15 MINUTES OFFICE 15587 A DIV[facility] OF [facility] 5 5 [facility] T NEW 45 SURGICAL MINUTES [facility] [place] - 5 5 N OUTPATIEN COMMUNTIY T HOSPITA PERIODIC 72370 BAI[facility] HIGUERA PREVENTIV 5 5 MEDICAL SULY E MED EST SERV PATIENT FOUNDATIO 18-39 YRS N OFFICE 27772 JAMESON ELAMCO OUTPATIEN 5 5 [facility] T VISIT HLTH DEPT TH DEPT 15 [place] MINUTES OFFICE 39967 SHAYLA MCGUIRE SARAHEN 5 5 RAJIV RAJIV T VISIT 15 MINUTES OFFICE 78576 SHAYLA MCGUIRE OUTPATIEN 5 5 RAJIV RAJIV T VISIT 15 MINUTES EMERGENCY 05410 ABIDFATAH WONG 5 5 [facility] T VISIT P LOW/MODER SEVERITY EMERGENCY 68761 ABDIFATAH 5 5 [facility] T VISIT MODERATE SEVERITY HOSPITAL ABDIFTAAH - 5 5 [facility] T OFFICE 30855 [facility] OUTPATIEN 4 4 FOOT & T NEW 30 ANKLE CE MINUTES HOSPITAL ABDIFATAH - 4 4 [facility] OUTPATIEN [facility] T OFFICE 18862 SHAYLA CORTEZ 4 4 RAJIV RAJIV T VISIT 15 MINUTES OFFICE 05327 B[facility] HIGUERA OUTPATIEN 4 4 MEDICAL SULY T VISIT SERV 15 FOUNDATIO MINUTES N OFFICE 49551 SONIA SCOTT OUTPATIARILELA 4 4 HUSSEIN HUSSEIN T VISIT 15 MINUTES EMERGENCY 03970 JUDITH WONG 4 4 [facility] T VISIT HIGH/URGE NT SEVERITY HOSPITAL ABDIFATAH - 4 4 [facility] OUTPATIEN INC T OFFICE 83900 JAMESON ELAMCO OUTPATIEN 4 4 [facility] [place] MINUT[facility] OFFICE 50741 SHAYLA CORTEZ 4 4 RAJIV RAJIV T VISIT 15 MINUTES OFFICE 71013 [facility] [place] MINUTES OFFICE 31762 SONIA SCOTT OUTPATIEN 4 4 HUSSEIN HUSSEIN T NEW 30 MINUTES EMERGENCY 06859 ALFARIS ALFARIS 4 4 [facility] DEPARTMEN T VISIT HIGH/URGE NT SEVERITY HOSPITAL ABDIFATAH - 4 4 [facility] OUTPATIEN INC T PERIODIC 03859 [facility] E MED EST HL DEPT [facility] PATIENT [facility] 18[facility]39 [facility] ABDIFATAH - 4 4 [facility] OUTPATIEN INC HOSPITAL ABDIFATAH - 4 4 [facility] OUTPATIEN INC T OFFICE 16452 [facility] TOR ZHOU CONSULTAT 4 4 PHYSICIAN PIETRO Galvan GROUP NEW/ESTAB PATIENT 60 MIN EMERGENCY 91772 ABDIFATAH DEPT 4 4 [facility] VISIT INC HIGH SEVERITY& THREAT [facility] ABDIFATAH - 4 4 [facility] OUTPATIEN INC T OFFICE 95022 [facility] JUDITH OUTPATIEN 4 4 PHYSICIAN VETO Araujo NEW 20 S GROUP MINUTES [facility] - 4 4 N INPATIENT COMMUNTIY HOSPITA OFFICE 54188 BAILEY HIGUERA OUTPATIEN 4 4 MEDICAL SULY T VISIT SERV 15 FOUNDATIO MINUTES OFFICE 62140 BAI[facility] HIGUERA OUTPATIEN 4 4 MEDICAL SULY T VISIT SERV 15 FOUNDATIO MINUTES OFFICE 82448 [facility] HIGUERA OUTPATIEN 3 3 MEDICAL SULY T VISIT SERV 15 FOUNDATIO MINUTES EMERGENCY 23358 ABDIFATAH 3 3 [facility] DEPARTMEN INC T VISIT LOW/MODER SEVERITY EMERGENCY 42655 [facility] DEPT 3 3 EMERGENCY VISIT SERVICES HIGH SEVERITY& THREAT [facility] ABDIFATAH - 3 3 [facility] OUTPATIEN [facility] T
--- OUTSIDE RECORDS SUMMARY | 2017-03-24 18:17 | External Medical Summary Rpt | CCD ---
Author Author , YASMEEN Organization YASMEEN Address Unknown Phone [email or web address] Name Relationship Address Phone ADRYAN, Next Of Kin Unknown Unavailable WHITE Immunization Name Date Rout CVX Reac Dose Comm Prov Is Faci e tion ent ider Refu lity Give sed n barb 08-1 3 999 No les, 7-20 17 mump s and rube lla viru s vacc ine HPV4 02-2 62 999 Hist H193 No H193 8-20 oric (Gar 08 al dasi Info l) rmat ion - Sour ce Unsp ecif ied Leo 06-0 10 999 Hist H193 No H193 o-IP 6-20 oric V 07 al Info rmat ion - Sour ce Unsp ecif ied HPV4 06-0 62 999 Hist H193 No H193 6-20 oric (Gar 07 al dasi Info l) rmat ion - Sour ce Unsp ecif ied Tdap 03-2 115 999 Hist H193 No H193 , 9-20 oric Adso 07 al rbed Info rmat ion - Sour ce Unsp ecif ied HPV4 03-2 62 999 Hist H193 No H193 9-20 oric (Gar 07 al dasi Info l) rmat ion - Sour ce Unsp ecif ied Td 08-0 9 999 Hist H149 No H149 (rosalina 1-20 oric lt), 03 al Info adso rmat rbed ion - Sour ce Unsp ecif ied Hep 01-1 8 999 Hist H149 No H149 B, 9-20 oric ped/ 00 al adol Info rmat ion - Sour ce Unsp ecif ied Hep 11-1 8 999 Hist H149 No H149 B, 0-19 oric ped/ 97 al adol Info rmat ion - Sour ce Unsp ecif ied Hep 09-2 8 999 Hist H149 No H149 B, 3-19 oric ped/ 97 al adol Info rmat ion - Sour ce Unsp ecif ied Vari 09-2 21 999 Hist H149 No H149 cell 3-19 oric a 97 al Info rmat ion - Sour ce Unsp ecif ied DTP 06- 1 999 Hist H196 No H196 1-19 oric 96 al Info rmat ion - Sour ce Unsp ecif ied MMR 06- 3 999 Hist H196 No H196 1-19 oric 96 al Info rmat ion - Sour ce Unsp ecif ied Leo 06- 2 999 Hist H196 No H196 o-OP 1-19 oric V 96 al Info rmat ion - Sour ce Unsp ecif ied
--- OUTSIDE RECORDS SUMMARY | 2017-03-24 18:17 | External Medical Summary Rpt ---
Author Author ANGELAMARCY Production, [employer] Organization [employer] Address Unknown Phone Unavailable Results Comprehensive metabolic 2000 panel in Serum or Plasma Observa Value Referen Units Interpr Notes Date tion ce etation Range Albumin/G 1.1 - 1.8 No Low No November 10 lobulin informati informati 2017 6:38 [Mass on in on in AM ratio] in source source Serum or data data Plasma Albumin 3.4 - 5.0 gm/dL Low No November 10 [Mass/vol informati 2017 6:38 ume] in on in AM Serum or source Plasma data Alkaline 46 - 116 U/L High No November 10 phosphata informati 2017 6:38 se on in AM [Enzymati source c data activity/ volume] in Serum or Plasma Bilirubin 0.2 - 1.0 mg/dL Normal No November 10 .total informati 2017 6:38 [Mass/vol on in AM ume] in source Serum or data Plasma Urea 7 - 18 mg/dL Low No November 10 nitrogen informati 2017 6:38 [Mass/vol on in AM ume] in source Serum or data Plasma Calcium 8.5 - mg/dL Normal No November 10 [Mass/vol 10.1 informati 2017 6:38 ume] in on in AM Serum or source Plasma data Chloride 98 - 107 mmoL/L Normal No November 10 [Moles/vo informati 2017 6:38 lume] in on in AM Serum or source Plasma data Carbon 21.0 - mmoL/L Normal No November 10 dioxide, 32.0 informati 2017 6:38 total on in AM [Moles/vo source lume] in data Serum or Plasma Creatinin 0.55 - mg/dL Low No November 10 e 1.02 informati 2017 6:38 [Mass/vol on in AM ume] in source Serum or data Plasma Creatinin 50 - 200 ML/MIN High No November 10 e renal informati 2017 6:38 clearance on in AM source predicted data by Cockcroft -Gault formula Estimated 59- ML/MIN No REFERENCE November 10 informati RANGE: 2017 6:38 glomerula on in >60 AM r source ML/MIN/1. filtratio data 73 SQUARE n rate METERSIf (GF this patient is -A merican, then multiply theresult by 1.210. Globulin 1.3 - 3.2 gm/dL High No November 10 [Mass/vol informati 2017 6:38 ume] in on in AM Serum source data Glucose 74 - 106 mg/dL Normal No November 10 [Mass/vol informati 2016 6:38 ume] in on in AM Serum or source Plasma data Potassium 3.5 - 5.1 mmoL/L Normal No November 10 informati 2016 6:38 [Moles/vo on in AM lume] in source Serum or data Plasma Sodium 136 - 145 mmoL/L Normal No November 10 [Moles/vo informati 2016 6:38 lume] in on in AM Serum or source Plasma data Aspartate 15 - 37 U/L Normal No November 10 informati 2016 6:38 aminotran on in AM sferase source [Enzymati data c activity/ volume] in Serum or Plasma Alanine 12 - 78 U/L Normal No November 10 aminotran informati 2016 6:38 sferase on in AM [Enzymati source c data activity/ volume] in Serum or Plasma Protein 6.4 - 8.2 gm/dL Normal No November 10 [Mass/vol informati 2016 6:38 ume] in on in AM Serum or source Plasma data CBC W Auto Differential panel in Blood Observa Value Referen Units Interpr Notes Date tion ce etation Range Basophils 0 - 0.2 K/MM3 Normal No November 10 informati 2016 6:38 [#/volume on in AM ] in source Blood by data Automated count Basophils 0.1 - 2.0 % Normal No November 10 informati 2016 6:38 leukocyte on in AM s in source Blood by data Automated count Eosinophi 0.0 - 0.4 K/mm3 Normal No November 10 ls informati 2016 6:38 [#/volume on in AM ] in source Blood by data Automated count Eosinophi 0.1 - % Normal No November 10 ls/100 12.0 informati 2016 6:38 leukocyte on in AM s in source Blood by data Automated count Granulocy 1.8 - 7.8 K/mm3 High No November 10 cory informati 2017 6:38 [#/volume on in AM ] in source Blood by data Automated count Granulocy 37.0 - % Normal No November 10 cory/100 80.0 informati 2016 6:38 leukocyte on in AM s in source Blood by data Automated count Hematocri 37.0 - % Normal No November 10 t [Volume 47.0 informati 2016 6:38 on in AM Fraction] source of Blood data Hemoglobi 12.2 - g/dL Normal No November 10 n 16.2 informati 2016 6:38 [Mass/vol on in AM ume] in source Blood data Lymphocyt 0.7 - 4.5 K/mm3 Normal No November 10 es informati 2016 6:38 [#/volume on in AM ] in source Unspecifi data ed specimen by Automated count Lymphocyt 10 - 50.0 % Normal No November 10 es informati 2016 6:38 [#/volume on in AM ] in source Unspecifi data ed specimen by Automated count Erythrocy 27 - 31.2 pg Normal No November 10 te mean informati 2016 6:38 corpuscul on in AM ar source hemoglobi data n [Entitic mass] Erythrocy 31.8 - g/dl Normal No November 10 te mean 35.4 informati 2016 6:38 corpuscul on in AM ar source hemoglobi data n concentra tion [Mass/vol ume] by Automated count Erythrocy 82.2 - fl Normal No November 10 te mean 97.8 informati 2016 6:38 corpuscul on in AM ar volume source [Entitic data volume] by Automated count Monocytes 0.1 - 1.0 K/mm3 Normal No November 10 informati 2016 6:38 [#/volume on in AM ] in source Blood by data Automated count Monocytes 1.7 - 9.3 % Normal No November 10 informati 2017 6:38 leukocyte on in AM s in source Blood by data Automated count Platelet 7.4 - fl Low No November 10 mean 10.4 informati 2016 6:38 volume on in AM [Entitic source volume] data in Blood by Automated count Platelets 142 - 424 K/mm3 Normal No November 10 informati 2016 6:38 [#/volume on in AM ] in source Blood data Erythrocy 4.2 - 5.4 M/mm3 Normal No November 10 cory informati 2016 6:38 [#/volume on in AM ] in source Amniotic data fluid Erythrocy 11.5 - % Normal No November 10 te 17.5 informati 2017 6:38 distribut on in AM ion width source [Entitic data volume] by Automated count Leukocyte 4.8 - K/MM3 High No November 10 s 10.8 informati 2017 6:38 [#/volume on in AM ] in source Blood data Urinalysis dipstick W Reflex Microscopic panel in Urine Observa Value Referen Units Interpr Notes Date tion ce etation Range Appeara CLOUDY CLEAR No No No November 10 nce of informa informa informa 2017 Urine tion in tion in tion in 6:25 AM source source source data data data Amorpho 4+ NONE No No No November 10 us informa informa informa 2017 sedimen tion in tion in tion in 6:25 AM t source source source [Presen data data data ce] in Urine sedimen t by Light microsc opy Bacteri 3+ O No No No November 10 a informa informa informa 2016 [Presen tion in tion in tion in 6:25 AM ce] in source source source Urine data data data sedimen t by Light microsc opy Bilirub NEGATIV NEG No No No November 10 in E informa informa informa 2016 [Presen tion in tion in tion in 6:25 AM ce] in source source source Urine data data data by Test strip Erythro NEGATIV NEG No No No November 10 cytes E informa informa informa 2016 [Presen tion in tion in tion in 6:25 AM ce] in source source source Urine data data data Color YELLOW YELLOW No No No November 10 of informa informa informa 2017 Urine tion in tion in tion in 6:25 AM source source source data data data Glucose NEG No No No November 10 [Mass/vol informati informati informati 2017 6:25 ume] in on in on in on in AM Urine by source source source Test data data data strip Ketones NEGATIV NEG mg/dL No No November 10 E informa informa 2016 [Presen tion in tion in 6:25 AM ce] in source source Urine data data by Automat ed test strip Mucus TRACE NEG No Abnorma No November 10 [Presen informa l informa 2016 ce] in tion in tion in 6:25 AM Urine source source sedimen data data t by Light microsc opy Nitrite NEGATIV NEG No No No November 10 E informa informa informa 2016 [Presen tion in tion in tion in 6:25 AM ce] in source source source Urine data data data by Test strip pH of 5.0 - 8.5 No Normal No November 10 Urine informati informati 2017 6:25 on in on in AM source source data data Protein NEG mg/dL No No November 10 [Mass/vol informati informati 2016 6:25 ume] in on in on in AM Urine by source source Automated data data test strip Specific 1.005 - No Normal No November 10 gravity 1.030 informati informati 2016 6:25 of Urine on in on in AM source source data data Epithel 3-5 0 - 5 #/hpf No No November 10 ial informa informa 2017 cells.s tion in tion in 6:25 AM quamous source source data data [Presen ce] in Urine sedimen t by Microsc opy high power field Urobili 0.2 NEG E.U./dL No No November 10 nogen informa informa 2016 [Presen tion in tion in 6:25 AM ce] in source source Urine data data by Test strip Leukocy [5 O wbc/hpf No No November 10 cory wbc/hpf informa informa 2016 [#/volu ; 10 tion in tion in 6:25 AM me] in wbc/hpf source source Urine ] data data Urinalysis dipstick W Reflex Microscopic panel in Urine Observa Value Referen Units Interpr Notes Date tion ce etation Range Appeara CLOUDY CLEAR No No No November 10 nce of informa informa informa 2016 Urine tion in tion in tion in 6:25 AM source source source data data data Bilirub NEGATIV NEG No No No November 10 in E informa informa informa 2016 [Presen tion in tion in tion in 6:25 AM ce] in source source source Urine data data data by Test strip Erythro NEGATIV NEG No No No November 10 cytes E informa informa informa 2016 [Presen tion in tion in tion in 6:25 AM ce] in source source source Urine data data data Color YELLOW YELLOW No No No November 10 of informa informa informa 2017 Urine tion in tion in tion in 6:25 AM source source source data data data Glucose NEG No No No November 10 [Mass/vol informati informati informati 2016 6:25 ume] in on in on in on in AM Urine by source source source Test data data data strip Ketones NEGATIV NEG mg/dL No No November 10 E informa informa 2016 [Presen tion in tion in 6:25 AM ce] in source source Urine data data by Automat ed test strip Mucus TRACE NEG No Abnorma No November 10 [Presen informa l informa 2016 ce] in tion in tion in 6:25 AM Urine source source sedimen data data t by Light microsc opy Nitrite NEGATIV NEG No No No November 10 E informa informa informa 2016 [Presen tion in tion in tion in 6:25 AM ce] in source source source Urine data data data by Test strip pH of 5.0 - 8.5 No Normal No November 10 Urine informati informati 2016 6:25 on in on in AM source source data data Protein NEG mg/dL No No November 10 [Mass/vol informati informati 2016 6:25 ume] in on in on in AM Urine by source source Automated data data test strip Specific 1.005 - No Normal No November 10 gravity 1.030 informati informati 2016 6:25 of Urine on in on in AM source source data data Urobili 0.2 NEG E.U./dL No No November 10 nogen informa informa 2016 [Presen tion in tion in 6:25 AM ce] in source source Urine data data by Test strip Drugs identified in Urine by Screen method Observa Value Referen Units Interpr Notes Date tion ce etation Range 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 Y Hold specimen in OE? N Positive urine drug screen samples are stored for 7 days. Contact the Lab if confirmation of positives is needed. Ampheta NEGATIV <1000 ng/mL No No October 27 mine E informa informa 2016 [Presen tion in tion in 7:40 PM ce] in source source Urine data data by Screen method Barbitura <200 ng/mL No No October 27 cory informati informati 2016 7:40 [Mass/vol on in on in PM ume] in source source Urine by data data Screen method Benzodiaz 200 ng/mL ng/mL No No October 27 epines informati informati 2016 7:40 [Mass/vol on in on in PM ume] in source source Serum or data data Plasma by Screen method Cocaine <300 ng/g No No October 27 [Mass/vol informati informati 2016 7:40 ume] in on in on in PM Unspecifi source source ed data data specimen Methadone <300 ng/mL No No October 27 informati informati 2016 7:40 [Mass/vol on in on in PM ume] in source source Unspecifi data data ed specimen Opiates <300 ng/mL No No October 27 [Mass/vol informati informati 2016 7:40 ume] in on in on in PM Unspecifi source source ed data data specimen Phencycli <25 ng/mL No No October 27 dine informati informati 2016 7:40 [Mass/vol on in on in PM ume] in source source Unspecifi data data ed specimen 11-Hydr NEGATIV <50 ng/mL No No October 27 oxy E informa informa 2017 delta-9 tion in tion in 7:40 PM source source tetrahy data data drocann abinol [Presen ce] in Unspeci fied specime n Urinalysis dipstick W Reflex Microscopic panel in Urine Observa Value Referen Units Interpr Notes Date tion ce etation Range 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 Y Hold specimen in OE? N Appeara SL CLEAR No No No October 27 nce of CLOUDY informa informa informa 2017 Urine tion in tion in tion in 7:40 PM source source source data data data Bacteri 3+ O No No No October 27 a informa informa informa 2016 [Presen tion in tion in tion in 7:40 PM ce] in source source source Urine data data data sedimen t by Light microsc opy Bilirub 1+ NEG No Abnorma ICTOTES October 27 in informa l T = 2017 [Presen tion in NEGATIV 7:40 PM ce] in source E Urine data by Test strip Erythro NEGATIV NEG No No No October 27 cytes E informa informa informa 2016 [Presen tion in tion in tion in 7:40 PM ce] in source source source Urine data data data Calcium 3+ NONE #/hpf No No October 27 informa informa 2017 oxalate tion in tion in 7:40 PM source source crystal data data s [Presen ce] in Urine sedimen t by Light microsc opy Color DK YELLOW No No No October 27 of YELLOW informa informa informa 2017 Urine tion in tion in tion in 7:40 PM source source source data data data Glucose NEG No No No October 27 [Mass/vol informati informati informati 2016 7:40 ume] in on in on in on in PM Urine by source source source Test data data data strip Ketones NEGATIV NEG mg/dL No No October 27 E informa informa 2016 [Presen tion in tion in 7:40 PM ce] in source source Urine data data by Automat ed test strip Mucus 1+ NEG No Abnorma No October 27 [Presen informa l informa 2016 ce] in tion in tion in 7:40 PM Urine source source sedimen data data t by Light microsc opy Nitrite NEGATIV NEG No No No October 27 E informa informa informa 2016 [Presen tion in tion in tion in 7:40 PM ce] in source source source Urine data data data by Test strip pH of 5.0 - 8.5 No Normal No October 27 Urine informati informati 2017 7:40 on in on in PM source source data data Protein NEG mg/dL High No October 27 [Mass/vol informati 2016 7:40 ume] in on in PM Urine by source Automated data test strip Erythro 3-5 0 rbc/hpf No No October 27 cytes informa informa 2016 [Presen tion in tion in 7:40 PM ce] in source source Urine data data sedimen t by Light microsc opy Specific 1.005 - No Normal No October 27 gravity 1.030 informati informati 2017 7:40 of Urine on in on in PM source source data data Epithel 10-20 0 - 5 #/hpf No No October 27 ial informa informa 2017 cells.s tion in tion in 7:40 PM quamous source source data data [Presen ce] in Urine sedimen t by Microsc opy high power field Urobili 1.0 NEG E.U./dL No No October 27 nogen informa informa 2016 [Presen tion in tion in 7:40 PM ce] in source source Urine data data by Test strip Leukocyte O wbc/hpf No No October 27 s informati informati 2016 7:40 [#/volume on in on in PM ] in source source Urine data data Urinalysis dipstick W Reflex Microscopic panel in Urine Observa Value Referen Units Interpr Notes Date tion ce etation Range 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 Y Hold specimen in OE? N Appeara SL CLEAR No No No October 27 nce of CLOUDY informa informa informa 2016 Urine tion in tion in tion in 7:40 PM source source source data data data Bilirub 1+ NEG No Abnorma ICTOTES October 27 in informa l T = 2016 [Presen tion in NEGATIV 7:40 PM ce] in source E Urine data by Test strip Erythro NEGATIV NEG No No No October 27 cytes E informa informa informa 2016 [Presen tion in tion in tion in 7:40 PM ce] in source source source Urine data data data Color DK YELLOW No No No October 27 of YELLOW informa informa informa 2016 Urine tion in tion in tion in 7:40 PM source source source data data data Glucose NEG No No No October 27 [Mass/vol informati informati informati 2016 7:40 ume] in on in on in on in PM Urine by source source source Test data data data strip Ketones NEGATIV NEG mg/dL No No October 27 E informa informa 2016 [Presen tion in tion in 7:40 PM ce] in source source Urine data data by Automat ed test strip Mucus 1+ NEG No Abnorma No October 27 [Presen informa l informa 2016 ce] in tion in tion in 7:40 PM Urine source source sedimen data data t by Light microsc opy Nitrite NEGATIV NEG No No No October 27 E informa informa informa 2016 [Presen tion in tion in tion in 7:40 PM ce] in source source source Urine data data data by Test strip pH of 5.0 - 8.5 No Normal No October 27 Urine informati informati 2016 7:40 on in on in PM source source data data Protein NEG mg/dL High No October 27 [Mass/vol informati 2016 7:40 ume] in on in PM Urine by source Automated data test strip Specific 1.005 - No Normal No October 27 gravity 1.030 informati informati 2016 7:40 of Urine on in on in PM source source data data Urobili 1.0 NEG E.U./dL No No October 27 nogen informa informa 2016 [Presen tion in tion in 7:40 PM ce] in source source Urine data data by Test strip CHLAMYDIA AND GONORRHEA TESTING Observa Value Referen Units Interpr Notes Date tion ce etation Range COLLECT PT/D.BR No No No No Dec 26 OR ADFORD informa informa informa informa 2014 RN tion in tion in tion in tion in 9:10 AM source source source source data data data data ETHNICI WHITE, No No No No Dec 26 TY NON-HIS informa informa informa informa 2014 PANIC tion in tion in tion in tion in 9:10 AM source source source source data data data data KIT 09-30-2 No No No No Dec 26 EXPIRAT 014 informa informa informa informa 2014 ION tion in tion in tion in tion in 9:10 AM DATE source source source source data data data data SYMPTOM NO No No No No Dec 26 S informa informa informa informa 2014 tion in tion in tion in tion in 9:10 AM source source source source data data data data REASON REVISIT No No No No Dec 26 FOR /ANNUAL informa informa informa informa 2014 REQUEST FAMILY tion in tion in tion in tion in 9:10 AM source source source source PLANNIN data data data data G VISIT SPECIME URINE No No No No Dec 26 N informa informa informa informa 2014 SOURCE tion in tion in tion in tion in 9:10 AM source source source source data data data data PREGNAN NO No No No No Dec 26 T informa informa informa informa 2014 tion in tion in tion in tion in 9:10 AM source source source source data data data data CHART NA No No No No Dec 26 NUMBER informa informa informa informa 2014 tion in tion in tion in tion in 9:10 AM source source source source data data data data Chlamyd NEGATIV No No No NEGATIV Dec 26 ia E informa informa informa E 2014 trachom tion in tion in tion in RESULT= 9:10 AM atis source source source WITHIN rRNA data data data NORMAL [Presen ce] in LIMITSP Unspeci OSITIVE fied specime RESULT= n by Probe & ABNORMA target LEQUIVO KAROLYN amplifi RESULT= cation method INDETER MINATEU NSATISF ACTORY RESULT= INVALID Neisser NEGATIV No No No NEGATIV Dec 26 ia E informa informa informa E 2014 gonorrh tion in tion in tion in RESULT= 9:10 AM oeae source source source WITHIN rRNA data data data NORMAL [Presen ce] in LIMITSP Unspeci OSITIVE fied specime RESULT= n by Probe & ABNORMA target LEQUIVO KAROLYN amplifi RESULT= cation method INDETER MINATEU NSATISF ACTORY RESULT= INVALID THE APTIMA COMBO 2 ASSAY IS NOT INTENDE D FOR THE EVALUAT ION OF SUSPECT EDSEXUA L ABUSE OR FOR OTHER MEDICO- LEGAL INDICAT IONS. FOR THOSE PATIENT S FORWHOM A FALSE POSITIV E RESULT MAY HAVE ADVERSE PSYCHO- SOCIAL IMPACT, THE [facility] RETESTI NG.\.br \This report contain s patient informa tion that must be protect ed in accorda nce with the Health Insuran ce Portabi lity and Account ability Act. CHLAMYDIA AND GONORRHEA TESTING Observa Value Referen Units Interpr Notes Date tion ce etation Range COLLECT PT/D.BR No No No No Dec 26 OR ERICFORD informa informa informa informa 2014 RN tion in tion in tion in tion in 9:10 AM source source source source data data data data ETHNICI WHITE, No No No No Dec 26 TY NON-HIS informa informa informa informa 2014 PANIC tion in tion in tion in tion in 9:10 AM source source source source data data data data KIT 09-30-2 No No No No Dec 26 EXPIRAT 014 informa informa informa informa 2014 ION tion in tion in tion in tion in 9:10 AM DATE source source source source data data data data SYMPTOM NO No No No No Dec 26 S informa informa informa informa 2014 tion in tion in tion in tion in 9:10 AM source source source source data data data data REASON REVISIT No No No No Dec 26 FOR /ANNUAL informa informa informa informa 2014 REQUEST FAMILY tion in tion in tion in tion in 9:10 AM source source source source PLANNIN data data data data G VISIT SPECIME URINE No No No No Dec 26 N informa informa informa informa 2014 SOURCE tion in tion in tion in tion in 9:10 AM source source source source data data data data PREGNAN NO No No No No Dec 26 T informa informa informa informa 2014 tion in tion in tion in tion in 9:10 AM source source source source data data data data CHART NA No No No No Dec 26 NUMBER informa informa informa informa 2014 tion in tion in tion in tion in 9:10 AM source source source source data data data data Chlamyd NEGATIV No No No NEGATIV Dec 26 ia E informa informa informa E 2014 trachom tion in tion in tion in RESULT= 9:10 AM atis source source source WITHIN rRNA data data data NORMAL [Presen ce] in LIMITSP Unspeci OSITIVE fied specime RESULT= n by Probe & ABNORMA target LEQUIVO KAROLYN amplifi RESULT= cation method INDETER MINATEU NSATISF ACTORY RESULT= INVALID Neisser NEGATIV No No No NEGATIV Dec 26 ia E informa informa informa E 2014 gonorrh tion in tion in tion in RESULT= 9:10 AM oeae source source source WITHIN rRNA data data data NORMAL [Presen ce] in LIMITSP Unspeci OSITIVE fied specime RESULT= n by Probe & ABNORMA target LEQUIVO KAROLYN amplifi RESULT= cation method INDETER MINATEU NSATISF ACTORY RESULT= INVALID THE APTIMA COMBO 2 ASSAY IS NOT INTENDE D FOR THE EVALUAT ION OF SUSPECT EDSEXUA L ABUSE OR FOR OTHER MEDICO- LEGAL INDICAT IONS. FOR THOSE PATIENT S FORWHOM A FALSE POSITIV E RESULT MAY HAVE ADVERSE PSYCHO- SOCIAL IMPACT, THE [facility] MMENDS RETESTI NG.\.br \This report contain s patient informa tion that must be protect ed in accorda nce with the Health Insuran ce Portabi lity and Account ability Act.
--- OUTSIDE RECORDS SUMMARY | 2017-03-24 18:17 | External Medical Summary Rpt ---
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 [...] MAY HAVE ADVERSE PSYCHO- SOCIAL IMPACT, [facility] NG.\.br \This report contain s [...]
--- OUTSIDE RECORDS SUMMARY | 2017-03-24 18:17 | External Medical Summary Rpt | CCD ---
Author Author , [employer] Organization [employer] Address Unknown Phone [email or web address] Support Name Relationship Address Phone ADRYAN, Next [...]
== END 2017-03-17 07:31 | disposition home or self-care (01) ==
LOC: ER 06:37
PROC: 0HQMXZZ Repair Right Foot Skin, External Approach (ICD-10-PCS; principal; 2017-03-17)
DX: S91.114A Laceration without foreign body of right lesser toe(s) without damage to nail, initial encounter (principal); Z23 Encounter for immunization; F17.210 Nicotine dependence, cigarettes, uncomplicated; W10.9XXA Fall (on) (from) unspecified stairs and steps, initial encounter; Y92.019 Unspecified place in single-family (private) house as the place of occurrence of the external cause
CPT/HCPCS: G0168